=== PATIENT | female | born 1975 | race Caucasian/White ===

== ENCOUNTER 2017-06-15 17:23 | Inpatient (IN) | payer MEDICAID, SELFPAY ==
[2016-05-21 16:15] VITALS: BMI 41.6
[2017-06-15 17:46] VITALS: BMI 39.9; BMI 40.0
--- NOTE | 2017-06-15 18:00 | CT_ITS ---
STUDY: CT ABDOMEN AND PELVIS WITHOUT CONTRAST REASON FOR EXAM: Female, 42 years old. MRSA abscess of the abdomen and left upper inner thigh area. RADIATION DOSAGE (If Supplied By Facility): CTDIvol = ( 18.69 ) mGy, DLP = ( 1134.75 ) mGycm TECHNIQUE: Transaxial images were obtained from the dome of the diaphragm to the symphysis pubis without oral contrast, and without intravenous contrast. Sagittal and coronal images were reconstructed. Individualized dose optimization techniques were used for this CT. COMPARISON: None. FINDINGS: Minimal chronic change or atelectatic change at the left lung base. Right coronary stent artifact. Normal cardiac size. Normal liver. Normal gallbladder and extrahepatic biliary system. Normal spleen. Normal pancreas. Normal bilateral adrenal glands. Normal right kidney. Normal left kidney. Normal visualized stomach. Normal small intestine. Minimal diverticulosis of the colon without evidence of acute diverticulitis. The appendix is visualized and appears normal. Mild calcified plaque of the aorta. Normal inferior vena cava. Normal retroperitoneum. Normal urinary bladder. Normal gynecologic structures with no pelvic mass or free fluid of the pelvis. There is a skin ulceration and generalized thickening of the skin with stranding in the superficial subcutaneous layer of the patient's overhanging abdominal panniculus. There does not appear to be an underlying focal fluid collection or abscess. There is stranding in the fatty tissues of the left medial thigh included in the [id number] extending into the perineum without a focal fluid collection or visible abscess cavity. Shotty bilateral inguinal lymph nodes. Skin ulceration in the perineum or thigh not obvious. No underlying bone abnormality. CT/Abdomen/Pelvis without Cont IMPRESSION: Skin ulceration and generalized thickening of the skin with stranding in the superficial subcutaneous layers of the patient's overhanging abdominal panniculus without an underlying focal fluid collection or abscess. Stranding in the fatty tissues of the left medial thigh included in the [id number] extending into the fatty tissues of the perineum without a focal fluid collection or visible abscess cavity in the [id number]. Skin ulceration in the perineum or thigh not obvious. Shotty bilateral inguinal adenopathy. No additional acute abdominal or pelvic findings. Electronically Signed: Henrietta Steinberg MD at 19:28 EST , Service support ,
--- NOTE | 2017-06-15 18:25 | PCM.HP.BLA ---
Problem List (1) Cellulitis Status: Acute Qualifiers: Site of cellulitis: trunk Site of cellulitis of trunk: groin Qualified Code(s): L03.314 - Cellulitis of groin (2) MRSA (methicillin resistant Staphylococcus aureus) Status: Acute History and Physical Date of Admission: 06/15/17 This is a 42-year-old female that was seen in [facility] today with a large open wound on her abdomen MRSA positive. Patient also had left groin and vulvar cellulitis and abscess. Patient was advised for direct admission to the hospital for debridement, and IV - Vancomycin. Dr. pj Lezama was consulted by Dr. Ana Hayes for OR debridement on 06/16/2017. Medicine consult for multiple comorbidities, cellulitis, and MRSA positive. On admission patient denies any chest pain, shortness of breath, dizziness. Patient reports that her most recent temperature was 99.5?. Reports that over the last few days her highest temperature was 100.3?F. Patient denies any recent drug abuse. Reports that she last used opioids approximately 13 years ago. Patient also reports that her blood sugar is uncontrolled. Reports she has not taken her insulin. Reports that her fasting glucose level this morning on 06/15/2017 was 315. PMH: NSTEMI, Uncontrolled DM, h/o opioid abuse, h/o Cocaine abuse, Cellulitis, MRSA positive, Obesity Psx: Adenoidectomy OBHX: x 5 MEDS: see Med list ALL: NKDA Exam: Gen: white female in NAD Abd/ext: dressing covering wound, left groin abscess/cellulitis - was examined in office by Dr. Ana Hayes a/p: 42yo with MRSA positive, Left groin cellulitis and Abscesses, Abdominal wound with necrosis 1) admit to MED SURG 2) MED CONSULT CALLED, Plastic surgery Dr. Uriarte consulted 3) CT ABD/PELV 4) DIABETIC DIET- NPO after Midnight 5) IVF 75cc/hr when NPO 6) Insulin sliding scale 7) HOME MEDS written- Norvasc, lisinopril, metoprolol, Prilosec 8) OR tomorrow for wound debridement 9) IV vancomycin
[2017-06-15 18:58] VITALS: BP 136/79; PULSE 88; RESP 16; TEMP 36.9; O2SAT 93
[2017-06-15 19:31] LABS: Bedside Glucose 337 mg/dL (70-110)
[2017-06-15] MEDS: 0.9% Normal Saline 1,000 ML 75 ML IV (19:31)
--- NOTE | 2017-06-15 19:36 | PCM.CONS.GEN ---
Reason for Consult Date of Consultation: 06/15/17 Reason for Consultation: Nonhealing diabetic MRSA ulcer abscess right abdominal wall. REFERRING PHYSICIAN: Dr. Hayes. HEAD OF HUMAN RESOURCES: Dr. Uriarte. History of Present Illness: 42-year-old woman with a history of poorly controlled diabetes mellitus was seen today with a nonhealing MRSA diabetic ulcer abscess right lower abdominal wall. She also has an abscess in her left inguinal and perineal area as well. She states she first noticed the increasing redness and swelling and pain on Michelle. She went to an urgent care center where a localized I&D procedure was done and the patient was started on Bactrim DS. She was told that the I&D showed MRSA. Patient was seen earlier today at [facility] by Dr. Hayes. With the worsening symptomatology of the right lower abdominal wall MRSA abscess, she felt the patient needed more aggressive antibiotic therapy and surgical debridement, and the patient was admitted to the hospital and started on IV Vancomycin. A CT Abdomen and Pelvis was done which did not show obvious underlying abscess. There was no intra-abdominal process present. I was asked to evaluate this patient for surgical options for treatment. In addition to the MRSA abscess in the right lower abdominal wall, the patient also has a localized abscess in the left inguinal and perineal area as well. Past Medical History Past Medical History (Chronic Problems): Chronic Problems NSTEMI (non-ST elevated myocardial infarction) (Chronic) HTN (hypertension) (Chronic) Diabetes mellitus (Chronic) HLD (hyperlipidemia) (Chronic) Tobacco abuse (Chronic) Allergies No Known Allergies Allergy (Verified 08/26/15 15:15) Current Medications Amlodipine Besylate (Norvasc) 5 mg PO DAILY ANDRES Atorvastatin Calcium (Lipitor) 80 mg PO QHS ANDRES Fluoxetine HCl (Prozac) 20 mg PO DAILY ANDRES Glucagon () 1 mg IM .X1 PRN Vancomycin HCl 2,000 mg/ (Dextrose) 290 mls @ 250 mls/hr IV RX TO DOSE ONE Vancomycin HCl 1,500 mg/ (Sodium Chloride) 530 mls @ 250 mls/hr IV X1 ONE Insulin Aspart (Novolog Flexpen (Bkc)) 0 units SC ACHS ANDRES Lisinopril (Zestril) 10 mg PO DAILY ANDRES Metoprolol Tartrate (Lopressor (Beta Familia)) 50 mg PO BID ANDRES Morphine Sulfate (Morphine) 2 - 4 mg IV Q3H PRN Morphine Sulfate (Morphine) 2 - 4 mg IV Q3H PRN Nutritional Formula (Lactose Free) (Glucerna Shake) 120 ml PO TIDCM ANDRES PAST MEDICAL HISTORY Diabetes mellitus. CAD with SD. MRSA. Hypertension. Angina. Atrial fibrillation - on anti-coagulation. Hyperlipidemia. Migraines. Restless leg syndrome. COPD. JON. Arthritis. Depression. Anxiety. Smoker. Obesity (BMI 40). Home Medications: Ambulatory Orders Medication Instructions Recorded Fluoxetine [Prozac] 60 mg PO DAILY 05/20/16 Metoprolol Tartrate [Lopressor 50 mg PO BID #60 tablet 05/22/16 (beta familia)] Amlodipine [Norvasc] 5 mg PO DAILY 06/15/17 Aspirin E.C. [Ecotrin] 81 mg PO DAILY@0800 06/15/17 Atorvastatin Calcium [Lipitor] 80 mg PO QHS 06/15/17 Clopidogrel Bisulfate [Plavix] 75 mg PO DAILY 06/15/17 Insulin Detemir [Levemir FlexPen] 20 units SC QHS 06/15/17 Lisinopril [Zestril] 10 mg PO DAILY 06/15/17 Tiotropium [place] [Spiriva 18 MCG] 1 puff INHALATION DAILY PRN 06/15/17 Surgical History: adenoidectomy, - - placement of cardiac stent. Psychiatric History: Anxiety, Depression Lives: Alone Smoking Status: Current every day smoker Tobacco Use: Cigarettes Alcohol: Rare Drugs: None - *Family History Paternal History Items: Heart Disease Review of Systems Constitutional: Reports: Fever, Malaise, Fatigue. Denies: Weight Change Eyes: Denies: Cataracts, Pain HEENT: Denies: Nasal Congestion, Sore Throat Cardiovascular: Reports: Chest Pain Respiratory: Reports: - - patient is a smoker.. Denies: Cough, Shortness of Breath Gastrointestinal: Denies: Constipation, Diarrhea, Nausea, Vomiting Genitourinary: Denies: Frequency, Hematuria Musculoskeletal: Denies: Arm Pain, Back Pain, Hand Pain, Leg Pain, Muscle pain, Neck Pain Skin: Reports: Wounds - nonhealing MRSA diabetic ulcer abscess right abdominal wall. diabetic abscess left inguinal and perineal area. Neurological: Reports: Headaches. Denies: Numbness Psychiatric: Reports: Anxiety, Depression Endocrine: Reports: - - has diabetes mellitus.. Denies: Polydipsia, Polyuria Hematologic/ Lymphatic: Reports: Easy Bruising, Hx of blood clot Patient Problems: Active and Suspected Problems Necrotizing soft tissue infection (Acute) necrotizing MRSA abscess soft tissue infection right lower abdominal wall Type 2 diabetes mellitus with other skin ulcer (Acute) Abdominal wall abscess (Acute) MRSA (methicillin resistant Staphylococcus aureus) (Acute) Vulvar cellulitis (Acute) Pelvic wall abscess and ulcer (Acute) - Physical Exam General: Alert, Oriented x3 HEENT: PERRLA, EOMI Oral: Moist Mucosa Neck: Supple Lungs: Clear to auscultation Cardiovascular: Regular rate, Regular Rhythm Abdomen: Soft, Non-Distended, Obese, - - there is a nonhealing diabetic MRSA ulcer abscess right abdominal wall. Tenderness to palpation. Surrounding induration. Measures 12 cm. Some fluctuance. Had recent I&D procedure at urgent care center. Has large abdominal panniculus with associated panniculitis. Extremities: No clubbing, No cyanosis, Edema - mild edema in lower extremities. Skin: Ulcer/ Wound - right lower abdominal wall MRSA diabetic ulcer abscess. Tenderness to palpation. Surrounding induration. Measures 12 cm. Some fluctuance. Had recent I&D procedure at urgent care center. There is an area of redness and tenderness to palpation in the left inguinal area and perineal area. Measures 8 cm. Some fluctuance. Lymphatic: No Cervical, Supraclavicular, or Inguinal Adenopathy Neurological: Cranial nerves II-XII grossly intact Psych/Mental Status: Normal Affect, Appropriate Vital Signs Temp Pulse Resp BP Pulse Ox 98.5 F 88 16 136/79 H 93 06/15/17 18:58 06/15/17 18:58 06/15/17 18:58 06/15/17 18:58 06/15/17 18:58 Oxygen Delivery Method Room Air Weight: 218 lb 8 oz Body Mass Index (BMI) 39.9 Laboratory Tests Past 24 Hrs 06/15/17 19:10 WBC Pending RBC Pending Hgb Pending Hct Pending MCV Pending MCH Pending MCHC Pending RDW Pending RDW Differential Pending Plt Count Pending Neut % (Auto) Pending Absolute Neuts (auto) Pending Total Counted Pending POC Glucose 06/15/17 19:15 POC Glucose 337 H Diagnostic Data Abdomen/Pelvis CT 06/15/17 18:00 IMPRESSION: Skin ulceration and generalized thickening of the skin with stranding in the superficial subcutaneous layers of the patient's overhanging abdominal panniculus without an underlying focal fluid collection or abscess. Stranding in the fatty tissues of the left medial thigh included in the [id number] extending into the fatty tissues of the perineum without a focal fluid collection or visible abscess cavity in the [id number]. Skin ulceration in the perineum or thigh not obvious. Shotty bilateral inguinal adenopathy. No additional acute abdominal or pelvic findings. Electronically Signed: Henrietta Steinberg MD at 19:28 EST , Service support , Assessment/Plan Active and Suspected Problems Necrotizing soft tissue infection (Acute) necrotizing MRSA abscess soft tissue infection right lower abdominal wall Type 2 diabetes mellitus with other skin ulcer (Acute) Abdominal wall abscess (Acute) MRSA (methicillin resistant Staphylococcus aureus) (Acute) Vulvar cellulitis (Acute) Pelvic wall abscess and ulcer (Acute) 1. 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 2. Necrotizing MRSA diabetic abscess left inguinal and perineal area. 3. Abdominal wall panniculus with panniculitis. 4. Diabetes mellitus. 5. MRSA. 6. Smoker. 7. Obesity. Patient has a draining diabetic MRSA ulcer abscess. May have an underlying necrotizing process. Abscesses may be secondary to poor diabetic control as well as from secondary infection from insulin injections. Recommend operative intervention with surgical preparation right lower abdominal wall with excision skin, subcutaneous tissue, muscle and fascia for necrotizing MRSA diabetic abscess soft tissue infection and abdominal panniculectomy. Any fascial defects will be closed. Will leave the wound open initially and pack the wound. Once no evidence of bleeding seen, can apply the VAC. Post discharge, can followup at the Wound Center. If there is a plateau in the healing process, can proceed with delayed secondary wound closure. At the time of surgery, will send tissue to Pathology for analysis to rule out carcinoma and to Microbiology for culture. A positive culture may necessitate antibiotic modification. Right now there is MRSA and will place the patient on Vancomycin. With poorly controlled diabetics, it is not uncommon to have polymicrobial infections. Will also add Zosyn to broaden the coverage. Depending on what is found at the time of surgery, may need ID consultation to assist with antibiotic management. With MRSA in a poorly controlled diabetic, I anticipate the need for IV antibiotics after discharge. Will order a PICC line. Dr. Hayes from Gynecology will proceed at the same time with incision and drainage and excisional debridement necrotizing MRSA diabetic abscess left inguinal and perineal area. That wound will also be left open and packed. Hopefully can maintain a seal with the VAC in this area. If not, then can proceed with daily dressing changes with a Silver type dressing. A CT Abdomen and Pelvis was done which did not show obvious underlying abscess. There was no intra-abdominal process present. With her multiple medical co-morbidities, the Hospitalist Group was consulted to assist with medical management. With her history of poorly controlled diabetes mellitus, will check a Hgb A1c. For the infection, will check an ESR and CRP. Will also check a Urinalysis. Anticipate increased metabolic demands from the wounds and from the infection. Will check a Prealbumin. I anticipate it will be low and will start the patient on nutritional supplementation with protein to help the healing process. Patient was informed of the risks and complications of the procedure including alternatives to surgery. These were discussed with her personally. She voiced understanding and wishes to proceed. She understands the wounds will be left open initially and packed with wound care. Encouraged the patient to stop smoking as it may have deleterious effects on wound healing. Code Visit Inpatient E&M: 40454 Init Hosp L2 - ICD-10 - L02.211, E11.622, M79.89, A49.02, F17.200
--- NOTE | 2017-06-15 19:39 | CON.PCM_ITS ---
Reason for Consult Date of Consultation: 06/15/17 Reason for Consultation: Nonhealing diabetic MRSA ulcer abscess right abdominal wall. REFERRING PHYSICIAN: Dr. Hayes. ELECTRICAL INSTRUMENTATION TECHNICIAN: Dr. Uriarte. History of Present Illness: 42-year-old woman with a history of poorly controlled diabetes mellitus was seen today with a nonhealing MRSA diabetic ulcer abscess right lower abdominal wall. She also has an abscess in her left inguinal and perineal area as well. She states she first noticed the increasing redness and swelling and pain on Michelle. She went to an urgent care center where a localized I&D procedure was done and the patient was started on Bactrim DS. She was told that the I&D showed MRSA. Patient was seen earlier today at [facility] by Dr. Hayes. With the worsening symptomatology of the right lower abdominal wall MRSA abscess, she felt the patient needed more aggressive antibiotic therapy and surgical debridement, and the patient was admitted to the hospital and started on IV Vancomycin. A CT Abdomen and Pelvis was done which did not show obvious underlying abscess. There was no intra- abdominal process present. I was asked to evaluate this patient for surgical options for treatment. In addition to the MRSA abscess in the right lower abdominal wall, the patient also has a localized abscess in the left inguinal and perineal area as well. Past Medical History Past Medical History (Chronic Problems): Chronic Problems NSTEMI (non-ST elevated myocardial infarction) (Chronic) HTN (hypertension) (Chronic) Diabetes mellitus (Chronic) HLD (hyperlipidemia) (Chronic) Tobacco abuse (Chronic) Allergies No Known Allergies Allergy (Verified 08/26/15 15:15) Current Medications Amlodipine Besylate (Norvasc) 5 mg PO DAILY ANDRES Atorvastatin Calcium (Lipitor) 80 mg PO QHS ANDRES Fluoxetine HCl (Prozac) 20 mg PO DAILY ANDRES Glucagon () 1 mg IM .X1 PRN Vancomycin HCl 2,000 mg/ (Dextrose) 290 mls @ 250 mls/hr IV RX TO DOSE ONE Vancomycin HCl 1,500 mg/ (Sodium Chloride) 530 mls @ 250 mls/hr IV X1 ONE Insulin Aspart (Novolog Flexpen (Bkc)) 0 units SC ACHS ANDRES Lisinopril (Zestril) 10 mg PO DAILY ANDRES Metoprolol Tartrate (Lopressor (Beta Familia)) 50 mg PO BID ANDRES Morphine Sulfate (Morphine) 2 - 4 mg IV Q3H PRN Morphine Sulfate (Morphine) 2 - 4 mg IV Q3H PRN Nutritional Formula (Lactose Free) (Glucerna Shake) 120 ml PO TIDCM ANDRES PAST MEDICAL HISTORY Diabetes mellitus. CAD with HI. MRSA. Hypertension. Angina. Atrial fibrillation - on anti-coagulation. Hyperlipidemia. Migraines. Restless leg syndrome. COPD. JON. Arthritis. Depression. Anxiety. Smoker. Obesity (BMI 40). Home Medications: Ambulatory Orders Medication Instructions Recorded Fluoxetine [Prozac] 60 mg PO DAILY 05/20/16 Metoprolol Tartrate [Lopressor 50 mg PO BID #60 tablet 05/22/16 (beta familia)] Amlodipine [Norvasc] 5 mg PO DAILY 06/15/17 Aspirin E.C. [Ecotrin] 81 mg PO DAILY@0800 06/15/17 Atorvastatin Calcium [Lipitor] 80 mg PO QHS 06/15/17 Clopidogrel Bisulfate [Plavix] 75 mg PO DAILY 06/15/17 Insulin Detemir [Levemir FlexPen] 20 units SC QHS 06/15/17 Lisinopril [Zestril] 10 mg PO DAILY 06/15/17 Tiotropium [place] [Spiriva 18 MCG] 1 puff INHALATION DAILY PRN 06/15/17 Surgical History: adenoidectomy, - - placement of cardiac stent. Psychiatric History: Anxiety, Depression Lives: Alone Smoking Status: Current every day smoker Tobacco Use: Cigarettes Alcohol: Rare Drugs: None - *Family History Paternal History Items: Heart Disease Review of Systems Constitutional: Reports: Fever, Malaise, Fatigue. Denies: Weight Change Eyes: Denies: Cataracts, Pain HEENT: Denies: Nasal Congestion, Sore Throat Cardiovascular: Reports: Chest Pain Respiratory: Reports: - - patient is a smoker.. Denies: Cough, Shortness of Breath Gastrointestinal: Denies: Constipation, Diarrhea, Nausea, Vomiting Genitourinary: Denies: Frequency, Hematuria Musculoskeletal: Denies: Arm Pain, Back Pain, Hand Pain, Leg Pain, Muscle pain, Neck Pain Skin: Reports: Wounds - nonhealing MRSA diabetic ulcer abscess right abdominal wall. diabetic abscess left inguinal and perineal area. Neurological: Reports: Headaches. Denies: Numbness Psychiatric: Reports: Anxiety, Depression Endocrine: Reports: - - has diabetes mellitus.. Denies: Polydipsia, Polyuria Hematologic/ Lymphatic: Reports: Easy Bruising, Hx of blood clot Patient Problems: Active and Suspected Problems Necrotizing soft tissue infection (Acute) necrotizing MRSA abscess soft tissue infection right lower abdominal wall Type 2 diabetes mellitus with other skin ulcer (Acute) Abdominal wall abscess (Acute) MRSA (methicillin resistant Staphylococcus aureus) (Acute) Vulvar cellulitis (Acute) Pelvic wall abscess and ulcer (Acute) - Physical Exam General: Alert, Oriented x3 HEENT: PERRLA, EOMI Oral: Moist Mucosa Neck: Supple Lungs: Clear to auscultation Cardiovascular: Regular rate, Regular Rhythm Abdomen: Soft, Non-Distended, Obese, - - there is a nonhealing diabetic MRSA ulcer abscess right abdominal wall. Tenderness to palpation. Surrounding induration. Measures 12 cm. Some fluctuance. Had recent I&D procedure at urgent care center. Has large abdominal panniculus with associated panniculitis. Extremities: No clubbing, No cyanosis, Edema - mild edema in lower extremities. Skin: Ulcer/ Wound - right lower abdominal wall MRSA diabetic ulcer abscess. Tenderness to palpation. Surrounding induration. Measures 12 cm. Some fluctuance. Had recent I&D procedure at urgent care center. There is an area of redness and tenderness to palpation in the left inguinal area and perineal area. Measures 8 cm. Some fluctuance. Lymphatic: No Cervical, Supraclavicular, or Inguinal Adenopathy Neurological: Cranial nerves II-XII grossly intact Psych/Mental Status: Normal Affect, Appropriate Vital Signs Temp Pulse Resp BP Pulse Ox 98.5 F 88 16 136/79 H 93 06/15/17 18:58 06/15/17 18:58 06/15/17 18:58 06/15/17 18:58 06/15/17 18:58 Oxygen Delivery Method Room Air Weight: 218 lb 8 oz Body Mass Index (BMI) 39.9 Laboratory Tests Past 24 Hrs 06/15/17 19:10 WBC Pending RBC Pending Hgb Pending Hct Pending MCV Pending MCH Pending MCHC Pending RDW Pending RDW Differential Pending Plt Count Pending Neut % (Auto) Pending Absolute Neuts (auto) Pending Total Counted Pending POC Glucose 06/15/17 19:15 POC Glucose 337 H Diagnostic Data Abdomen/Pelvis CT 06/15/17 18:00 IMPRESSION: Skin ulceration and generalized thickening of the skin with stranding in the superficial subcutaneous layers of the patient's overhanging abdominal panniculus without an underlying focal fluid collection or abscess. Stranding in the fatty tissues of the left medial thigh included in the [id number] extending into the fatty tissues of the perineum without a focal fluid collection or visible abscess cavity in the [id number]. Skin ulceration in the perineum or thigh not obvious. Shotty bilateral inguinal adenopathy. No additional acute abdominal or pelvic findings. Electronically Signed: Henrietta Steinberg MD at 19:28 EST , Service support , Assessment/Plan Active and Suspected Problems Necrotizing soft tissue infection (Acute) necrotizing MRSA abscess soft tissue infection right lower abdominal wall Type 2 diabetes mellitus with other skin ulcer (Acute) Abdominal wall abscess (Acute) MRSA (methicillin resistant Staphylococcus aureus) (Acute) Vulvar cellulitis (Acute) Pelvic wall abscess and ulcer (Acute) 1. 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 2. Necrotizing MRSA diabetic abscess left inguinal and perineal area. 3. Abdominal wall panniculus with panniculitis. 4. Diabetes mellitus. 5. MRSA. 6. Smoker. 7. Obesity. Patient has a draining diabetic MRSA ulcer abscess. May have an underlying necrotizing process. Abscesses may be secondary to poor diabetic control as well as from secondary infection from insulin injections. Recommend operative intervention with surgical preparation right lower abdominal wall with excision skin, subcutaneous tissue, muscle and fascia for necrotizing MRSA diabetic abscess soft tissue infection and abdominal panniculectomy. Any fascial defects will be closed. Will leave the wound open initially and pack the wound. Once no evidence of bleeding seen, can apply the VAC. Post discharge, can followup at the Wound Center. If there is a plateau in the healing process, can proceed with delayed secondary wound closure. At the time of surgery, will send tissue to Pathology for analysis to rule out carcinoma and to Microbiology for culture. A positive culture may necessitate antibiotic modification. Right now there is MRSA and will place the patient on Vancomycin. With poorly controlled diabetics, it is not uncommon to have polymicrobial infections. Will also add Zosyn to broaden the coverage. Depending on what is found at the time of surgery, may need ID consultation to assist with antibiotic management. With MRSA in a poorly controlled diabetic, I anticipate the need for IV antibiotics after discharge. Will order a PICC line. Dr. Hayes from Gynecology will proceed at the same time with incision and drainage and excisional debridement necrotizing MRSA diabetic abscess left inguinal and perineal area. That wound will also be left open and packed. Hopefully can maintain a seal with the VAC in this area. If not, then can proceed with daily dressing changes with a Silver type dressing. A CT Abdomen and Pelvis was done which did not show obvious underlying abscess. There was no intra-abdominal process present. With her multiple medical co-morbidities, the Hospitalist Group was consulted to assist with medical management. With her history of poorly controlled diabetes mellitus, will check a Hgb A1c. For the infection, will check an ESR and CRP. Will also check a Urinalysis. Anticipate increased metabolic demands from the wounds and from the infection. Will check a Prealbumin. I anticipate it will be low and will start the patient on nutritional supplementation with protein to help the healing process. Patient was informed of the risks and complications of the procedure including alternatives to surgery. These were discussed with her personally. She voiced understanding and wishes to proceed. She understands the wounds will be left open initially and packed with wound care. Encouraged the patient to stop smoking as it may have deleterious effects on wound healing. Code Visit Inpatient E&M: 57772 Init Hosp L2 - ICD-10 - L02.211, E11.622, M79.89, A49.02 , F17.200
[2017-06-15 19:47] LABS: Absolute Lymphocyte Count 2.01 X10^3/ul (0.83-4.51); Absolute Neutrophil Count 7.5 X10^3/uL (2.0-7.7); Basophil# 0.02 X10^3/uL; Basophil% 0.2 % (0-1); Eosinophil# 0.13 X10^3/uL; Eosinophils% 1.2 % (0-5); Hematocrit 41.1 % (37-47); Hemoglobin 13.6 g/dl (12.0-15.0); Lymphocyte # 2.01 X10^3/ul (4.0); Lymphocyte % 19.1 % (19-41); Mean Corp Hgb Conc 33.1 g/gl (32-36); Mean Corpuscular Hgb 31.3 pg (27.0-32.0); Mean Corpuscular Volume 94.7 fL (81-99); Mean Platelet Vol. 11.2 fl (6.2-12.0); Monocyte% 7.6 % (0-10); Neutrophil # 7.54 X10^3/uL (2.7-7.7); Neutrophil % 71.6 % (47-70); Platelet Count 268 K/mm3 (150-450); RBC Distribution Width CV 12.6 % (11.6-14.6); RBC Distribution Width SD 43.8 fl (35.1-43.9); Red Blood Count 4.34 M/mm3 (4.2-5.4); White Blood Count 10.5 K/mm3 (4.4-11.0)
--- NOTE | 2017-06-15 20:15 | PCM.CONS.GEN ---
Problem List (1) Vulvar cellulitis Status: Acute (2) Pelvic wall abscess and ulcer Status: Acute (3) Angina pectoris Status: Resolved (4) NSTEMI (non-ST elevated myocardial infarction) Status: Chronic (5) HTN (hypertension) Status: Chronic (6) Diabetes mellitus Status: Chronic (7) HLD (hyperlipidemia) Status: Chronic (8) Tobacco abuse Status: Chronic (9) MRSA (methicillin resistant Staphylococcus aureus) Status: Acute Reason for Consult Date of Consultation: 06/15/17 Reason for Consultation: Lower pelvic wall ulcer with vulvar cellulitis and abscess History of Present Illness: The patient is a 42 year old F with multiple comorbidities as listed above was admitted from [facility] for ulcer on the lower pelvic wall with MRSA positive. As per the SLOTS MANAGER H&P, she has left groin and vulvar colitis and abscess. Patient was admitted for surgical debridement and IV antibiotic. Patient is on IV vancomycin. Dr. Uriarte has been consulted and she is scheduled for debridement on 06/16/2017. She noted perineal cellulitis/abscess first on the New Year's Michelle. She has low-grade fever, T-max 100.3 Fahrenheit in the last few days pelvic wall and perineal purulent drainage. She has history of coronary artery disease with non-STEMI in 05/2016 status post stent, diabetes mellitus type 2, obstructive sleep apnea, noncompliant with CPAP, COPD and hypertension. She is a smoker. [] Past Medical History Past Medical History (Chronic Problems): Chronic Problems NSTEMI (non-ST elevated myocardial infarction) (Chronic) HTN (hypertension) (Chronic) Diabetes mellitus (Chronic) HLD (hyperlipidemia) (Chronic) Tobacco abuse (Chronic) Allergies No Known Allergies Allergy (Verified 08/26/15 15:15) Home Medications: Ambulatory Orders Medication Instructions Recorded Fluoxetine [Prozac] 60 mg PO DAILY 05/20/16 Metoprolol Tartrate [Lopressor 50 mg PO BID #60 tablet 05/22/16 (beta steph)] Amlodipine [Norvasc] 5 mg PO DAILY 06/15/17 Aspirin E.C. [Ecotrin] 81 mg PO DAILY@0800 06/15/17 Atorvastatin Calcium [Lipitor] 80 mg PO QHS 06/15/17 Clopidogrel Bisulfate [Plavix] 75 mg PO DAILY 06/15/17 Insulin Detemir [Levemir FlexPen] 20 units SC QHS 06/15/17 Lisinopril [Zestril] 10 mg PO DAILY 06/15/17 Tiotropium [place] [Spiriva 18 MCG] 1 puff INHALATION DAILY PRN 06/15/17 Surgical History: no surgical history Smoking Status: Current every day smoker Tobacco Use: Cigarettes - *Family History Paternal History Items: Heart Disease Review of Systems Constitutional: Reports: Chills, Fever, Weakness HEENT: Denies: Head Aches, Sinus Congestion, Sinus Drainage Cardiovascular: Denies: Chest Pain, Palpitations Respiratory: Denies: Cough, Shortness of breath at rest, Sputum production Gastrointestinal: Denies: Abdominal Pain, Nausea, Vomiting Genitourinary: Denies: Dysuria Musculoskeletal: Denies: Joint Pain, Joint Tenderness Skin: Reports: Dryness, Rash, Skin Changes, Wounds Neurological: Denies: Numbness, Tingling, Focal weakness Psychiatric: Denies: Anxiety, Depression, Homicidal Ideations, Suicidal Ideations Hematologic/ Lymphatic: Denies: Easy Bruising, Easy Bleeding Patient Problems: Active and Suspected Problems MRSA (methicillin resistant Staphylococcus aureus) (Acute) Vulvar cellulitis (Acute) Pelvic wall abscess and ulcer (Acute) - Physical Exam General: Alert, Oriented x3, Cooperative, - - Mild fever HEENT: Atraumatic, PERRLA, EOMI, Normocephalic Oral: Moist Mucosa Neck: Supple, No JVD, Negative Carotid Bruits Lungs: Clear to auscultation, Normal air movement, No rhonchi, No wheeze, No rales Cardiovascular: Regular rate, Regular Rhythm, Normal S1, Normal S2, No murmurs Abdomen: Bowel Sounds Present, Soft, Non Tender, Non-Distended Extremities: No cyanosis, Capillary Refill Less than 3 Seconds, Edema Skin: Ulcer/ Wound - Also present over lower pelvic wall, floor covered with slough and purulent discharge. Pelvic and SLOTS MANAGER exam deferred to director of strategic communications Musculoskeletal: No Tenderness to Palpation of Joints or Extremities Neurological: Cranial nerves II-XII grossly intact Psych/Mental Status: Normal Affect, Appropriate Vital Signs Temp Pulse Resp BP Pulse Ox 98.5 F 88 16 136/79 H 93 06/15/17 18:58 06/15/17 18:58 06/15/17 18:58 06/15/17 18:58 06/15/17 18:58 Oxygen Delivery Method Room Air Weight: 218 lb 8 oz Body Mass Index (BMI) 39.9 Laboratory Tests Past 24 Hrs 06/15/17 19:10 WBC Pending RBC Pending Hgb Pending Hct Pending MCV Pending MCH Pending MCHC Pending RDW Pending RDW Differential Pending Plt Count Pending Neut % (Auto) Pending Absolute Neuts (auto) Pending Total Counted Pending POC Glucose 06/15/17 19:15 POC Glucose 337 H Assessment/Plan Active and Suspected Problems MRSA (methicillin resistant Staphylococcus aureus) (Acute) Vulvar cellulitis (Acute) Pelvic wall abscess and ulcer (Acute) The patient is a 42 year old F with multiple comorbidities as listed above was admitted from [facility] for ulcer on the lower pelvic wall with MRSA positive. As per the SLOTS MANAGER H&P, she has left groin and vulvar colitis and abscess. Patient was admitted for surgical debridement and IV antibiotic. Patient is on IV vancomycin. Dr. Uriarte has been consulted and she is scheduled for debridement on 06/16/2017. She noted perineal cellulitis/abscess first on the New 's Michelle. She has low-grade fever, T-max 100.3 Fahrenheit in the last few days pelvic wall and perineal purulent drainage. She has history of coronary artery disease with non-STEMI in 05/2016 status post stent, diabetes mellitus type 2, obstructive sleep apnea, noncompliant with CPAP, COPD and hypertension. She is a smoker. 1. Pelvic wall ulcer with vulvar cellulitis and abscess with MRSA positive: [facility]. On IV vancomycin. Pain control. Wound care consult nurse. Dr. Uriarte is being consulted and is scheduled for surgery on 06/16/2017. CBC, PT/INR, CMP and prealbumin ordered. ESR ordered. 2. Diabetes mellitus type 2: Previous A1c 10.2% on 05/2016. Accu-Chek shows glucose 337. On Accu-Chek before meals and at bedtime car with NovoLog sliding scale. Levemir 20 units subcu at bedtime daily. Follow A1c. 3. Other comorbidities include coronary artery disease status post stent, hypertension, COPD, obstructive sleep apnea, noncompliant to CPAP: Stable. Home medication reconciliation done. Continue aspirin told Plavix tomorrow am and resume after surgery DVT prophylaxis: On heparin 5000 units subcutaneous twice daily. Bilateral SCDs. Hold morning dose before surgery. Code Visit Office Visits / Consults: [id number] IP Consult L2
[2017-06-15 20:26] LABS: POSITIVE COUNT NO; POSITIVE DIFFERENTIAL NO; POSITIVE MORPHOLOGY NO
--- NOTE | 2017-06-15 20:29 | CON.PCM_ITS ---
Problem List (1) Vulvar cellulitis Status: Acute (2) Pelvic wall abscess and ulcer Status: Acute (3) Angina pectoris Status: Resolved (4) NSTEMI (non-ST elevated myocardial infarction) Status: Chronic (5) HTN (hypertension) Status: Chronic (6) Diabetes mellitus Status: Chronic (7) HLD (hyperlipidemia) Status: Chronic (8) Tobacco abuse Status: Chronic (9) MRSA (methicillin resistant Staphylococcus aureus) Status: Acute Reason for Consult Date of Consultation: 06/15/17 Reason for Consultation: Lower pelvic wall ulcer with vulvar cellulitis and abscess History of Present Illness: The patient is a 42 year old F with multiple comorbidities as listed above was admitted from [facility] for ulcer on the lower pelvic wall with MRSA positive. As per the DEVELOPMENT TECHNOLOGIST H&P, she has left groin and vulvar colitis and abscess. Patient was admitted for surgical debridement and IV antibiotic. Patient is on IV vancomycin. Dr. Uriarte has been consulted and she is scheduled for debridement on 06/16/2017. She noted perineal cellulitis/abscess first on the New Year's Michelle. She has low- grade fever, T-max 100.3 Fahrenheit in the last few days pelvic wall and perineal purulent drainage. She has history of coronary artery disease with non-STEMI in 05/2016 status post stent, diabetes mellitus type 2, obstructive sleep apnea, noncompliant with CPAP, COPD and hypertension. She is a smoker. [] Past Medical History Past Medical History (Chronic Problems): Chronic Problems NSTEMI (non-ST elevated myocardial infarction) (Chronic) HTN (hypertension) (Chronic) Diabetes mellitus (Chronic) HLD (hyperlipidemia) (Chronic) Tobacco abuse (Chronic) Allergies No Known Allergies Allergy (Verified 08/26/15 15:15) Home Medications: Ambulatory Orders Medication Instructions Recorded Fluoxetine [Prozac] 60 mg PO DAILY 05/20/16 Metoprolol Tartrate [Lopressor 50 mg PO BID #60 tablet 05/22/16 (beta steph)] Amlodipine [Norvasc] 5 mg PO DAILY 06/15/17 Aspirin E.C. [Ecotrin] 81 mg PO DAILY@0800 06/15/17 Atorvastatin Calcium [Lipitor] 80 mg PO QHS 06/15/17 Clopidogrel Bisulfate [Plavix] 75 mg PO DAILY 06/15/17 Insulin Detemir [Levemir FlexPen] 20 units SC QHS 06/15/17 Lisinopril [Zestril] 10 mg PO DAILY 06/15/17 Tiotropium [place] [Spiriva 18 MCG] 1 puff INHALATION DAILY PRN 06/15/17 Surgical History: no surgical history Smoking Status: Current every day smoker Tobacco Use: Cigarettes - *Family History Paternal History Items: Heart Disease Review of Systems Constitutional: Reports: Chills, Fever, Weakness HEENT: Denies: Head Aches, Sinus Congestion, Sinus Drainage Cardiovascular: Denies: Chest Pain, Palpitations Respiratory: Denies: Cough, Shortness of breath at rest, Sputum production Gastrointestinal: Denies: Abdominal Pain, Nausea, Vomiting Genitourinary: Denies: Dysuria Musculoskeletal: Denies: Joint Pain, Joint Tenderness Skin: Reports: Dryness, Rash, Skin Changes, Wounds Neurological: Denies: Numbness, Tingling, Focal weakness Psychiatric: Denies: Anxiety, Depression, Homicidal Ideations, Suicidal Ideations Hematologic/ Lymphatic: Denies: Easy Bruising, Easy Bleeding Patient Problems: Active and Suspected Problems MRSA (methicillin resistant Staphylococcus aureus) (Acute) Vulvar cellulitis (Acute) Pelvic wall abscess and ulcer (Acute) - Physical Exam General: Alert, Oriented x3, Cooperative, - - Mild fever HEENT: Atraumatic, PERRLA, EOMI, Normocephalic Oral: Moist Mucosa Neck: Supple, No JVD, Negative Carotid Bruits Lungs: Clear to auscultation, Normal air movement, No rhonchi, No wheeze, No rales Cardiovascular: Regular rate, Regular Rhythm, Normal S1, Normal S2, No murmurs Abdomen: Bowel Sounds Present, Soft, Non Tender, Non-Distended Extremities: No cyanosis, Capillary Refill Less than 3 Seconds, Edema Skin: Ulcer/ Wound - Also present over lower pelvic wall, floor covered with slough and purulent discharge. Pelvic and DEVELOPMENT TECHNOLOGIST exam deferred to braiding machine tender Musculoskeletal: No Tenderness to Palpation of Joints or Extremities Neurological: Cranial nerves II-XII grossly intact Psych/Mental Status: Normal Affect, Appropriate Vital Signs Temp Pulse Resp BP Pulse Ox 98.5 F 88 16 136/79 H 93 06/15/17 18:58 06/15/17 18:58 06/15/17 18:58 06/15/17 18:58 06/15/17 18:58 Oxygen Delivery Method Room Air Weight: 218 lb 8 oz Body Mass Index (BMI) 39.9 Laboratory Tests Past 24 Hrs 06/15/17 19:10 WBC Pending RBC Pending Hgb Pending Hct Pending MCV Pending MCH Pending MCHC Pending RDW Pending RDW Differential Pending Plt Count Pending Neut % (Auto) Pending Absolute Neuts (auto) Pending Total Counted Pending POC Glucose 06/15/17 19:15 POC Glucose 337 H Assessment/Plan Active and Suspected Problems MRSA (methicillin resistant Staphylococcus aureus) (Acute) Vulvar cellulitis (Acute) Pelvic wall abscess and ulcer (Acute) The patient is a 42 year old F with multiple comorbidities as listed above was admitted from [facility] for ulcer on the lower pelvic wall with MRSA positive. As per the DEVELOPMENT TECHNOLOGIST H&P, she has left groin and vulvar colitis and abscess. Patient was admitted for surgical debridement and IV antibiotic. Patient is on IV vancomycin. Dr. Uriarte has been consulted and she is scheduled for debridement on 06/16/2017. She noted perineal cellulitis/abscess first on the New 's Michelle. She has low- grade fever, T-max 100.3 Fahrenheit in the last few days pelvic wall and perineal purulent drainage. She has history of coronary artery disease with non-STEMI in 05/2016 status post stent, diabetes mellitus type 2, obstructive sleep apnea, noncompliant with CPAP, COPD and hypertension. She is a smoker. 1. Pelvic wall ulcer with vulvar cellulitis and abscess with MRSA positive: [facility]. On IV vancomycin. Pain control. Wound care consult nurse. Dr. Uriarte is being consulted and is scheduled for surgery on 06/16/2017. CBC, PT/INR, CMP and prealbumin ordered. ESR ordered. 2. Diabetes mellitus type 2: Previous A1c 10.2% on 05/2016. Accu-Chek shows glucose 337. On Accu-Chek before meals and at bedtime car with NovoLog sliding scale. Levemir 20 units subcu at bedtime daily. Follow A1c. 3. Other comorbidities include coronary artery disease status post stent, hypertension, COPD, obstructive sleep apnea, noncompliant to CPAP: Stable. Home medication reconciliation done. Continue aspirin told Plavix tomorrow am and resume after surgery DVT prophylaxis: On heparin 5000 units subcutaneous twice daily. Bilateral SCDs. Hold morning dose before surgery. Code Visit Office Visits / Consults: [id number] IP Consult L2
--- NOTE | 2017-06-15 20:30 | NURSING ---
Patient refused for wound to be assessed by Dr. Orosco. Also refused care by this nurse, with education and encouragement patient allowed for abd wound to be assessed and part of physical assessment to be done. Patient yelling/cussing at staff. Did not initially allow for lab draw, this nurse to bedside with education and patient reluctantly allowed for draw.
[2017-06-15 20:33] LABS: International Normalized Ratio 1.2; Prothrombin Time (Protime)PT. 14.5 SECONDS (11.7-14.9)
[2017-06-15 20:46] LABS: ALB/GLOB Ratio 0.8 RATIO (0.9-2.4); AST(SGOT) 13 U/L (15-37); Alanine Aminotransfer ALT/SGPT 21 U/L (12-78); Albumin, Serum 2.8 g/dL (3.4-5.0); Alkaline Phosphatase 150 U/L (45-117); Anion Gap 12 (5-15); BUN 12 mg/dL (7-18); BUN/Creat Ratio 18.1 RATIO (10-20); Calcium,Total 8.9 mg/dL (8.5-10.1); Chloride 101 mmol/L (98-107); Creatinine, Serum 0.66 mg/dL (0.55-1.02); EST Glomerular Filtration Rate 104 mL/min (>60); Est Glom Filt Rate - Afr Amer 126 mL/min (>60); Estimated Creatinine Clearance 87.82 ml/min; Globulin 3.7 g/dL (2.2-4.2); Glucose 332 mg/dL (70-110); Potassium 4.2 mmol/L (3.5-5.1); Protein, Total 6.5 g/dL (6.4-8.2); Sodium Level 136 mmol/L (136-145)
[2017-06-15 20:56] LABS: Hemoglobin A1c 12.9 % (4.2-6.3)
--- NOTE | 2017-06-15 21:15 | NURSING ---
Patient 10 year old daughter here to visit. Has stuffy/running nose and cough. Asked to leave, patient/family refused. This nurse offered mask to child, refused by patient as well. Advised that hospital policy is nobody under 14 during flu season, patient very angry with this nurse.
[2017-06-15 22:32] LABS: Probe Check PASS; Staph aureus DNA By PCR POSITIVE (Negative)
[2017-06-15 22:33] LABS: M R Staph aureus DNA By PCR POSITIVE (Negative)
[2017-06-15 22:41] VITALS: PULSE 80
[2017-06-15] MEDS: Metoprolol Tartrate 50 MG Tablet PO (22:41)
[2017-06-15] MEDS: Piperacil/Tazobactam 3.375 GM/50 ML ML IV (22:43)
[2017-06-15 22:50] VITALS: BP 130/78; PULSE 92; RESP 16; TEMP 37.3; O2SAT 92
[2017-06-15] MEDS: 0.9% NaCl Peripheral Flush Adult/Peds IV (23:05)
[2017-06-15 23:11] LABS: Bedside Glucose 332 mg/dL (70-110)
[2017-06-15 23:12] LABS: Mucous, Urine 0 SEEN /hpf (<or=2+)
[2017-06-15 23:20] LABS: Color, Urine Yellow (Yellow); Glucose, Dipstick 1000 mg/dl (Normal); Ketone-Dipstick 5 mg/dl (Negative); Leukocyte Esterase-Dipstick 500 /ul (Negative); Nitrite-Dipstick Negative (Negative); Occult Blood-Urine 10 /ul (Negative); Protein-Dipstick 30 mg/dl (Negative); Specific Gravity, Urine 1.015 (1.002-1.030); Urine Bilirubin Dipstick Negative (Negative); Urine Clarity Sl. Cloudy (Clear); Urine Urobilinogen Normal (Normal)
[2017-06-15 23:42] LABS: Bacteria RARE /hpf (None Seen); Red Blood Cells-Urine 0-5 SEEN /hpf (0-5); Squamous Epithelial Cells - UA 5-10 SEEN /hpf (5-10); White Blood Cells 10-25 SEEN /hpf (0-5)
[2017-06-16] VITALS (13 sets, daily range): BP systolic 111–132; BP diastolic 66–93; PULSE 72–78; RESP 16–18; TEMP 35.8–36.7; O2SAT 92–97; BMI 39.9
[2017-06-16] MEDS: Nystatin Powder 15gm Bottle 1 APPLIC TOPICAL (00:31)
[2017-06-16] MEDS: 0.9% NaCl Peripheral Flush Adult/Peds IV ×2 (03:26→22:15)
--- NOTE | 2017-06-16 05:00 | EKG12_ITS ---
Test Reason : AM EKG Blood Pressure : / mmHG Vent. Rate : 079 BPM Atrial Rate : 079 BPM P-R Int : 156 ms QRS Dur : 086 ms QT Int : 400 ms P-R-T Axes : 042 044 037 degrees QTc Int : 458 ms Normal sinus rhythm Normal ECG Confirmed by WAYNE STEELE, ANGEL ([id number]), copy editor GERALDINE MULLINS ([id number]) on 06/29/2017 11:24:43 AM Referred By: JOHANNY Confirmed By:ANGEL BLACK MD
[2017-06-16] MEDS: Piperacil/Tazobactam 3.375 GM/50 ML ML IV ×2 (06:14→18:31)
[2017-06-16 06:35] LABS: Bedside Glucose 337 mg/dL (70-110)
--- NOTE | 2017-06-16 07:30 | ABS_PTH ---
PATIENT: RACHANA DAVIS LOC: MS2 U#:[id number] AGE/SX: 42/F ROOM: [facility] [place] RE06/15/[address]: Dr. Rodrigo Flor MD : [id number] BED: 1 DIS: 06/20/2017 SPEC #: [id number] RECD: 06/17/17 09:51 STATUS: MAURY HADLEY #: [id number] TESSY: 06/16/17 07:[address]: Damien Batres DEPT: SURGICAL PATHOLOGY RECD BY: Thien Landis ENTERED: 06/17/17 10:11 SP TYPE: Abscess OTHR DR: MD Dr. Brian Burkett MD Dr. Liza D Talampas, MD Dr. Mark Tereletsky, DO Dr. Robert Leininger, MD Tissues: A - Abdomen, NOS B - Inguinal region, NOS Procedures: Special Stain Group I Surgery Specimen Level IV AFB Stain (control) GMS Stain (control) HEADER OPERATION: Excision vulvar abscess; surgical preparation right lower abdominal wall and left groin PRE-OP DIAGNOSIS: Vulvar abscess; nonhealing abdominal wall, abscess left inguinal area TISSUE SUBMITTED: A ? Right lower abdominal wall abscess, B ? Left inguinal/perineal abscess MICROSCOPIC DIAGNOSIS A. Skin and soft tissue, right lower abdomen, excision: Ulceration with associated acute and chronic inflammation and abscess formation. Negative for acid-fast bacilli and fungal organisms. B. Skin and soft tissue of left inguinal region, excision: Ulceration with associated acute and chronic inflammation and abscess formation. Negative for acid-fast bacilli and fungal organisms. AM:treva 06/20/17 MICROSCOPIC DESCRIPTION Slides are reviewed. A & B. AFB and GMS stains with matched controls were used in the evaluation of this case. GROSS DESCRIPTION A - Received in fixative is one container labeled with the patient's name and designated right lower abdominal wall abscess. The specimen consists of a piece of skin with underlying adipose tissue measuring 15 x 13 cm and up to 5.5 cm in thickness. The skin surface shows focal area of ulceration. No mass lesion is identified. Mineralogy Professor sections are submitted in three cassettes. B - Received in fixative is one container labeled with the patient's name and designated left inguinal perineal abscess. The specimen consists of four variable size pieces of skin with underlying tissue. The largest piece measures 10 x 8 cm and up to 3.5 cm in thickness. Three smaller pieces measure in aggregate 7 x 6 x 2 cm. A focal area of ulceration is noted. No mass lesion is identified. Mineralogy Professor sections are submitted in two cassettes. / ANGÉLICA:treva 06/17/17 TC:2 CPT: 81933 x2, 10134 x4
[2017-06-16 07:36] LABS: Anion Gap 9 (5-15); BUN 13 mg/dL (7-18); BUN/Creat Ratio 20.4 RATIO (10-20); Calcium,Total 8.3 mg/dL (8.5-10.1); Chloride 101 mmol/L (98-107); Creatinine, Serum 0.64 mg/dL (0.55-1.02); EST Glomerular Filtration Rate 109 mL/min (>60); Est Glom Filt Rate - Afr Amer 131 mL/min (>60); Estimated Creatinine Clearance 90.57 ml/min; Glucose 307 mg/dL (70-110); Potassium 3.5 mmol/L (3.5-5.1); Sodium Level 133 mmol/L (136-145)
--- NOTE | 2017-06-16 07:45 | NURSING ---
Addendum entered by Clarisse Jimenez 06/17/17 01:41: Time for this note was 1945 on 06/16/16 incorrectly charted as 0745 06/16/16. Original Note: Patient refused option to have 2nd IV access for antibiotic therapy. Call to pharmacy to edit antibiotic times
[2017-06-16 07:59] LABS: Erythrocyte Sedimentation Rate 76 mm/hr (0-20)
[2017-06-16 08:01] LABS: Hematocrit 38.1 % (37-47); Hemoglobin 12.7 g/dl (12.0-15.0); Mean Corp Hgb Conc 33.3 g/gl (32-36); Mean Corpuscular Hgb 31.8 pg (27.0-32.0); Mean Corpuscular Volume 95.3 fL (81-99); Platelet Count 239 K/mm3 (150-450); RBC Distribution Width CV 12.8 % (11.6-14.6); White Blood Count 8.7 K/mm3 (4.4-11.0)
[2017-06-16 08:02] LABS: Scan Indicated on CBC? Y/N NO
--- NOTE | 2017-06-16 08:31 | PCM.RX.CS ---
Subjective/Objective Date: 06/16/17 Time: 08:31 Antibiotic: Piperacillin/Tazobactam, Vancomycin Type of Consult: New start Indications for Therapy: Skin/Soft Tissue Labs: Sodium 133 mmol/L (136-145) L 06/16/17 07:00 Potassium 3.5 mmol/L (3.5-5.1) 06/16/17 07:00 Chloride 101 mmol/L (98-107) 06/16/17 07:00 Carbon Dioxide 23.0 mmol/L (21.0-32.0) 06/16/17 07:00 Anion Gap 9 (5-15) 06/16/17 07:00 BUN 13 mg/dL (7-18) 06/16/17 07:00 Creatinine 0.64 mg/dL (0.55-1.02) 06/16/17 07:00 Est GFR (MDRD) Af Amer 131 mL/min (>60) 06/16/17 07:00 Est GFR (MDRD) Non-Af 109 mL/min (>60) 06/16/17 07:00 BUN/Creatinine Ratio 20.4 RATIO (10-20) H 06/16/17 07:00 Glucose 307 mg/dL (70-110) H 06/16/17 07:00 Estimated Creatinine Clearance: 90-100 mL/min Pharmacy Plan for Drug Dosing: Goal vancomycin trough 10-15 mcg/mL. Patient initially given vancomycin 1500mg, recommend to continue vancomycin 1000mg IV q8h for est trough 13 mcg/mL. Check prior to 5th dose. Pharmacy Service will continue to monitor and adjust dosing as required. Pharmacy to order these labs: Trough - Vancomycin Labs to be done on (date): 06/18/17 Labs to be done (time): 12:00
--- NOTE | 2017-06-16 08:58 | PCM.PN.HOSP ---
Patient Problems: Active and Suspected Problems Necrotizing soft tissue infection (Acute) necrotizing MRSA abscess soft tissue infection right lower abdominal wall Type 2 diabetes mellitus with other skin ulcer (Acute) Abdominal wall abscess (Acute) MRSA (methicillin resistant Staphylococcus aureus) (Acute) Vulvar cellulitis (Acute) Pelvic wall abscess and ulcer (Acute) Subjective: Still with abdominal pain. Vitals/I&O's: Vital Signs Temp Pulse Resp BP Pulse Ox 36.4 C L 78 16 125/78 H 95 06/16/17 03:20 06/16/17 03:20 06/16/17 03:20 06/16/17 03:20 06/16/17 03:20 Oxygen Delivery Method Room Air Weight: 99.11 kg Body Mass Index (BMI) 39.9 Intake and Output for Last 24 Hours 06/14/17 06/15/17 06/16/17 23:59 23:59 23:59 Intake Total 2456 / 2456 1486 / 1486 Output Total 600 / 600 800 / 800 Balance 1856 / 1856 686 / 686 General: - - Flat affect. Afebrile. HEENT: Atraumatic, Normocephalic Neck: No Nodes, Thyroid Normal Size and Texture Lungs: Clear to auscultation, Normal air movement, No rhonchi, No wheeze Cardiovascular: Regular rate, Regular Rhythm, Normal S1, Normal S2, No murmurs Abdomen: Bowel Sounds Present, Soft, - - Declined visualization of the abdominal wound. Psych/Mental Status: Flat Affect Laboratory Results 06/15/17 19:10: WBC 10.5, RBC 4.34, Hgb 13.6, Hct 41.1, MCV 94.7, MCH 31.3, MCHC 33.1, RDW 12.6, RDW Differential 43.8, Plt Count 268, MPV 11.2, Immature Gran % (Auto) 0.300, Neut % (Auto) 71.6 H, Lymph % (Auto) 19.1, [place] % (Auto) 7.6, Eos % (Auto) 1.2, Baso % (Auto) 0.2, Absolute Neuts (auto) 7.5, Absolute Lymphs (auto) 2.01, Total Counted Not Reportable 06/15/17 19:10: PT 14.5, INR 1.2 06/15/17 19:10: Sodium 136, Potassium 4.2, Chloride 101, Carbon Dioxide 23.0, Anion Gap 12, BUN 12, Creatinine 0.66, Estim Creat Clear Calc 87.82, Est GFR (MDRD) Af Amer 126, Est GFR (MDRD) Non-Af 104, BUN/Creatinine Ratio 18.1, Glucose 332 H, Calcium 8.9, Total Bilirubin 0.30, AST 13 L, ALT 21, Alkaline Phosphatase 150 H, Total Protein 6.5, Albumin 2.8 L, Globulin 3.7, Albumin/Globulin Ratio 0.8 L, Prealbumin 12.0 L 06/15/17 19:10: Hemoglobin A1c 12.9 H 06/15/17 19:15: POC Glucose 337 H 06/15/17 22:39: POC Glucose 332 H 06/15/17 23:00: Urine Color Yellow, Urine Clarity Sl. Cloudy, Urine pH 6.0, Ur Specific [place] 1.015, Urine Protein 30 H, Urine Glucose (UA) 1000 H, Urine Ketones 5 H, Urine Occult Blood 10 H, Urine Nitrite Negative, Urine Bilirubin Negative, Urine Urobilinogen Normal, Ur Leukocyte Esterase 500 H, Urine RBC 0-5 SEEN, Urine WBC 10-25 SEEN, Ur Squamous Epith Cells 5-10 SEEN, Urine Bacteria RARE, Urine Mucus 0 SEEN 06/15/17 : S.aureus Protein A PCR POSITIVE H, MRSA (PCR) POSITIVE H 06/16/17 06:16: POC Glucose 337 H 06/16/17 07:00: WBC 8.7, RBC 4.00 L, Hgb 12.7, Hct 38.1, MCV 95.3, MCH 31.8, MCHC 33.3, RDW 12.8, RDW Differential 45.0 H, Plt Count 239, MPV 11.0, ESR 76 H 06/16/17 07:00: Sodium 133 L, Potassium 3.5, Chloride 101, Carbon Dioxide 23.0, Anion Gap 9, BUN 13, Creatinine 0.64, Estim Creat Clear Calc 90.57, Est GFR (MDRD) Af Amer 131, Est GFR (MDRD) Non-Af 109, BUN/Creatinine Ratio 20.4 H, Glucose 307 H, Calcium 8.3 L, C-React Prot Ext Range 134.00 H Current Medications Amlodipine Besylate (Norvasc) 5 mg PO DAILY [facility] Aspirin (Ecotrin) 81 mg PO DAILY@0800 [facility] Atorvastatin Calcium (Lipitor) 80 mg PO QHS [facility] Last Admin: 06/15/17 20:19 Dose: Not Given Dextrose (D50w Syringe) 0 gm IV X1 PRN; Protocol PRN Reason: Hypoglycemia Fluoxetine HCl (Prozac) 20 mg PO DAILY [facility] Glucagon () 1 mg IM .X1 PRN PRN Reason: Hypoglycemia Sodium Chloride () 1,000 mls @ 75 mls/hr IV .[id number] [facility] Last Admin: 06/15/17 19:31 Dose: 75 mls/hr Piperacillin Sod/Tazobactam Sod (Zosyn) 3.375 gm in 50 mls @ 12.5 mls/hr IV Q8 [facility] Last Admin: 06/16/17 06:14 Dose: 12.5 mls/hr Vancomycin HCl (Vancomycin) 1,000 mg in 200 mls @ 200 mls/hr IV Q8H [facility] Insulin Aspart (Novolog Flexpen (Bkc)) 0 units SC ACHS [facility] PRN Reason: Protocol Last Admin: 06/16/17 06:18 Dose: 8 units Insulin Detemir (Levemir (Bkc)) 20 units SC QHS [facility] Last Admin: 06/15/17 22:41 Dose: 20 units Ipratropium Saunemin (Atrovent) 0.5 mg INHALATION Q6HWA.RT [facility] Last Admin: 06/16/17 07:15 Dose: Not Given Lisinopril (Zestril) 10 mg PO DAILY [facility] Metoprolol Tartrate (Lopressor (Beta Familia)) 50 mg PO BID [facility] Last Admin: 06/15/17 22:41 Dose: 50 mg Morphine Sulfate (Morphine) 2 - 4 mg IV Q3H PRN PRN PRN Reason: SEVERE PAIN (6-10/10) Last Admin: 06/16/17 03:26 Dose: 4 mg Morphine Sulfate (Morphine) 2 - 4 mg IV Q3H PRN PRN PRN Reason: SEVERE PAIN (6-10/10) Nicotine (Nicoderm Cq (Pbkc)) 21 mg TRANSDERM. DAILY [facility] Last Admin: 06/16/17 00:31 Dose: 21 mg Nutritional Formula (Lactose Free) (Glucerna Shake) 120 ml PO TIDCM [facility] Nystatin (Mycostatin Powder) 1 applic TOPICAL TID [facility] PRN Reason: Protocol Last Admin: 06/16/17 00:31 Dose: 1 applicatio Sodium Chloride () 5 - 30 ml IV UD PRN PRN Reason: SALINE FLUSH Last Admin: 06/16/17 03:26 Dose: 10 ml Assessment/Plan Active and Suspected Problems Necrotizing soft tissue infection (Acute) necrotizing MRSA abscess soft tissue infection right lower abdominal wall Type 2 diabetes mellitus with other skin ulcer (Acute) Abdominal wall abscess (Acute) MRSA (methicillin resistant Staphylococcus aureus) (Acute) Vulvar cellulitis (Acute) Pelvic wall abscess and ulcer (Acute) 1. Diabetes mellitus type 2, uncontrolled On her home dose of Levemir. It appears patient has not any prandial insulin at home. She is on sliding scale here but I will add scheduled log once patient is taking diet. Patient's hemoglobin A1c is 12.9. Question if patient is actually been taking insulin as she is more she is very poorly controlled. Reluctant to start going up on her insulin regimen as of yet. Particularly if the patient is noncompliant then she may become hypoglycemic for her to aggressive. 2. Abdominal wall abscess: On vancomycin and Zosyn. Gynecology following, Dr. Uriarte on consult as well as Dr. Ng. 3. DVT prophylaxis will defer to the primary service. Code Visit Inpatient E&M: 51959 Subs Hosp L2
--- NOTE | 2017-06-16 09:05 | NURSING ---
Was asked to see patient for wound to the right lower abdomen and the left groin/perineal area. in to talk with patient and try yo assess the wounds. pt is refusing for this nurse to assess wounds at this time. states she is going to surgery today and does not want the packing removed because it hurts. Discussed the possibility of a wound VAC post operatively. Pt states that Dr Uriarte had discussed this yesterday with her. Pt states she is hoping to not have a wound VAC especially to the perineal wound. will follow up with patient post op since patient is refusing for this nurse to assess at this time.
--- NOTE | 2017-06-16 09:18 | PN_ITS ---
Patient Problems: Active and Suspected Problems Necrotizing soft tissue infection (Acute) necrotizing MRSA abscess soft tissue infection right lower abdominal wall Type 2 diabetes mellitus with other skin ulcer (Acute) Abdominal wall abscess (Acute) MRSA (methicillin resistant Staphylococcus aureus) (Acute) Vulvar cellulitis (Acute) Pelvic wall abscess and ulcer (Acute) Subjective: Still with abdominal pain. Vitals/I&O's: Vital Signs Temp Pulse Resp BP Pulse Ox 36.4 C L 78 16 125/78 H 95 06/16/17 03:20 06/16/17 03:20 06/16/17 03:20 06/16/17 03:20 06/16/17 03:20 Oxygen Delivery Method Room Air Weight: 99.11 kg Body Mass Index (BMI) 39.9 Intake and Output for Last 24 Hours 06/14/17 06/15/17 06/16/17 23:59 23:59 23:59 Intake Total 2456 / 2456 1486 / 1486 Output Total 600 / 600 800 / 800 Balance 1856 / 1856 686 / 686 General: - - Flat affect. Afebrile. HEENT: Atraumatic, Normocephalic Neck: No Nodes, Thyroid Normal Size and Texture Lungs: Clear to auscultation, Normal air movement, No rhonchi, No wheeze Cardiovascular: Regular rate, Regular Rhythm, Normal S1, Normal S2, No murmurs Abdomen: Bowel Sounds Present, Soft, - - Declined visualization of the abdominal wound. Psych/Mental Status: Flat Affect Laboratory Results 06/15/17 19:10: WBC 10.5, RBC 4.34, Hgb 13.6, Hct 41.1, MCV 94.7, MCH 31.3, MCHC 33.1, RDW 12.6, RDW Differential 43.8, Plt Count 268, MPV 11.2, Immature Gran % (Auto) 0.300, Neut % (Auto) 71.6 H, Lymph % (Auto) 19.1, [place] % (Auto) 7.6, Eos % (Auto) 1.2, Baso % (Auto) 0.2, Absolute Neuts (auto) 7.5, Absolute Lymphs (auto) 2.01, Total Counted Not Reportable 06/15/17 19:10: PT 14.5, INR 1.2 06/15/17 19:10: Sodium 136, Potassium 4.2, Chloride 101, Carbon Dioxide 23.0, Anion Gap 12, BUN 12, Creatinine 0.66, Estim Creat Clear Calc 87.82, Est GFR ( MDRD) Af Amer 126, Est GFR (MDRD) Non-Af 104, BUN/Creatinine Ratio 18.1, Glucose 332 H, Calcium 8.9, Total Bilirubin 0.30, AST 13 L, ALT 21, Alkaline Phosphatase 150 H, Total Protein 6.5, Albumin 2.8 L, Globulin 3.7, Albumin/ Globulin Ratio 0.8 L, Prealbumin 12.0 L 06/15/17 19:10: Hemoglobin A1c 12.9 H 06/15/17 19:15: POC Glucose 337 H 06/15/17 22:39: POC Glucose 332 H 06/15/17 23:00: Urine Color Yellow, Urine Clarity Sl. Cloudy, Urine pH 6.0, Ur Specific [place] 1.015, Urine Protein 30 H, Urine Glucose (UA) 1000 H, Urine Ketones 5 H, Urine Occult Blood 10 H, Urine Nitrite Negative, Urine Bilirubin Negative, Urine Urobilinogen Normal, Ur Leukocyte Esterase 500 H, Urine RBC 0-5 SEEN, Urine WBC 10-25 SEEN, Ur Squamous Epith Cells 5-10 SEEN, Urine Bacteria RARE, Urine Mucus 0 SEEN 06/15/17 : S.aureus Protein A PCR POSITIVE H, MRSA (PCR) POSITIVE H 06/16/17 06:16: POC Glucose 337 H 06/16/17 07:00: WBC 8.7, RBC 4.00 L, Hgb 12.7, Hct 38.1, MCV 95.3, MCH 31.8, MCHC 33.3, RDW 12.8, RDW Differential 45.0 H, Plt Count 239, MPV 11.0, ESR 76 H 06/16/17 07:00: Sodium 133 L, Potassium 3.5, Chloride 101, Carbon Dioxide 23.0, Anion Gap 9, BUN 13, Creatinine 0.64, Estim Creat Clear Calc 90.57, Est GFR ( MDRD) Af Amer 131, Est GFR (MDRD) Non-Af 109, BUN/Creatinine Ratio 20.4 H, Glucose 307 H, Calcium 8.3 L, C-React Prot Ext Range 134.00 H Current Medications Amlodipine Besylate (Norvasc) 5 mg PO DAILY [facility] Aspirin (Ecotrin) 81 mg PO DAILY@0800 [facility] Atorvastatin Calcium (Lipitor) 80 mg PO QHS [facility] Last Admin: 06/15/17 20:19 Dose: Not Given Dextrose (D50w Syringe) 0 gm IV X1 PRN; Protocol PRN Reason: Hypoglycemia Fluoxetine HCl (Prozac) 20 mg PO DAILY [facility] Glucagon () 1 mg IM .X1 PRN PRN Reason: Hypoglycemia Sodium Chloride () 1,000 mls @ 75 mls/hr IV .[id number] [facility] Last Admin: 06/15/17 19:31 Dose: 75 mls/hr Piperacillin Sod/Tazobactam Sod (Zosyn) 3.375 gm in 50 mls @ 12.5 mls/hr IV Q8 [facility] Last Admin: 06/16/17 06:14 Dose: 12.5 mls/hr Vancomycin HCl (Vancomycin) 1,000 mg in 200 mls @ 200 mls/hr IV Q8H [facility] Insulin Aspart (Novolog Flexpen (Bkc)) 0 units SC ACHS [facility] PRN Reason: Protocol Last Admin: 06/16/17 06:18 Dose: 8 units Insulin Detemir (Levemir (Bkc)) 20 units SC QHS [facility] Last Admin: 06/15/17 22:41 Dose: 20 units Ipratropium [place] (Atrovent) 0.5 mg INHALATION Q6HWA.RT [facility] Last Admin: 06/16/17 07:15 Dose: Not Given Lisinopril (Zestril) 10 mg PO DAILY [facility] Metoprolol Tartrate (Lopressor (Beta Familia)) 50 mg PO BID [facility] Last Admin: 06/15/17 22:41 Dose: 50 mg Morphine Sulfate (Morphine) 2 - 4 mg IV Q3H PRN PRN PRN Reason: SEVERE PAIN (6-10/10) Last Admin: 06/16/17 03:26 Dose: 4 mg Morphine Sulfate (Morphine) 2 - 4 mg IV Q3H PRN PRN PRN Reason: SEVERE PAIN (6-10/10) Nicotine (Nicoderm Cq (Pbkc)) 21 mg TRANSDERM. DAILY [facility] Last Admin: 06/16/17 00:31 Dose: 21 mg Nutritional Formula (Lactose Free) (Glucerna Shake) 120 ml PO TIDCM [facility] Nystatin (Mycostatin Powder) 1 applic TOPICAL TID [facility] PRN Reason: Protocol Last Admin: 06/16/17 00:31 Dose: 1 applicatio Sodium Chloride () 5 - 30 ml IV UD PRN PRN Reason: SALINE FLUSH Last Admin: 06/16/17 03:26 Dose: 10 ml Assessment/Plan Active and Suspected Problems Necrotizing soft tissue infection (Acute) necrotizing MRSA abscess soft tissue infection right lower abdominal wall Type 2 diabetes mellitus with other skin ulcer (Acute) Abdominal wall abscess (Acute) MRSA (methicillin resistant Staphylococcus aureus) (Acute) Vulvar cellulitis (Acute) Pelvic wall abscess and ulcer (Acute) 1. Diabetes mellitus type 2, uncontrolled On her home dose of Levemir. It appears patient has not any prandial insulin at home. She is on sliding scale here but I will add scheduled log once patient is taking diet. Patient's hemoglobin A1c is 12.9. Question if patient is actually been taking insulin as she is more she is very poorly controlled. Reluctant to start going up on her insulin regimen as of yet. Particularly if the patient is noncompliant then she may become hypoglycemic for her to aggressive. 2. Abdominal wall abscess: On vancomycin and Zosyn. Gynecology following, Dr. Uriarte on consult as well as Dr. Ng. 3. DVT prophylaxis will defer to the primary service. Code Visit Inpatient E&M: 12531 Subs Hosp L2
--- NOTE | 2017-06-16 10:02 | PCM.HP.ID ---
Problem List (1) Abdominal wall abscess Status: Acute Reason for Consult: abd abscess Consulted by: Dr. Orosco History of Present Illness: The patient is a 42 year old F with h/o DM who presented with 10 days of progressive draining, painful abscess. Developed some redness, pain, swelling over lower abd around New Year's megan, she thinks her jeans rubbed at the spot. Has h/o skin abscess in the past, but not recently. Started to have purulent drainage from abd as well as L inguinal/perineal area. Pain worsened, went to urgent care 06/10, given bactrim, reports wound swab was sent. Sx continued to worsen, so came to ED yesterday. Reports some chills. CT done, admitted on vanc/zosyn, plan for OR today with Dr. Uriarte. Full ROS performed and neg except as noted above. Pain slightly better today. - Medical History Past Medical History (Chronic Problems): Chronic Problems NSTEMI (non-ST elevated myocardial infarction) (Chronic) HTN (hypertension) (Chronic) Diabetes mellitus (Chronic) HLD (hyperlipidemia) (Chronic) Tobacco abuse (Chronic) Allergies/Adverse Reactions: Allergies No Known Allergies Allergy (Verified 08/26/15 15:15) Home Medications: Ambulatory Orders Medication Instructions Recorded Fluoxetine [Prozac] 60 mg PO DAILY 05/20/16 Metoprolol Tartrate [Lopressor 50 mg PO BID #60 tablet 05/22/16 (beta steph)] Amlodipine [Norvasc] 5 mg PO DAILY 06/15/17 Aspirin E.C. [Ecotrin] 81 mg PO DAILY@0800 06/15/17 Atorvastatin Calcium [Lipitor] 80 mg PO QHS 06/15/17 Clopidogrel Bisulfate [Plavix] 75 mg PO DAILY 06/15/17 Insulin Detemir [Levemir FlexPen] 20 units SC QHS 06/15/17 Lisinopril [Zestril] 10 mg PO DAILY 06/15/17 Tiotropium Bonnyman [Spiriva 18 MCG] 1 puff INHALATION DAILY PRN 06/15/17 - Social History Tobacco Use: cigarettes Vital Signs Temp Pulse Resp BP Pulse Ox 97.5 F L 78 16 125/78 H 95 06/16/17 03:20 06/16/17 03:20 06/16/17 03:20 06/16/17 03:20 06/16/17 03:20 Oxygen Delivery Method Room Air Weight: 99.11 kg Body Mass Index (BMI) 39.9 Laboratory Tests Past 24 Hrs 06/15/17 06/15/17 06/15/17 19:10 19:10 19:10 WBC 10.5 RBC 4.34 Hgb 13.6 Hct 41.1 MCV 94.7 MCH 31.3 MCHC 33.1 RDW 12.6 RDW Differential 43.8 Plt Count 268 MPV 11.2 Immature Gran % (Auto) 0.300 Neut % (Auto) 71.6 H Lymph % (Auto) 19.1 [place] % (Auto) 7.6 Eos % (Auto) 1.2 Baso % (Auto) 0.2 Absolute Neuts (auto) 7.5 Absolute Lymphs (auto) 2.01 Total Counted Not Reportable ESR PT 14.5 INR 1.2 Sodium 136 Potassium 4.2 Chloride 101 Carbon Dioxide 23.0 Anion Gap 12 BUN 12 Creatinine 0.66 Estim Creat Clear Calc 87.82 Est GFR (MDRD) Af Amer 126 Est GFR (MDRD) Non-Af 104 BUN/Creatinine Ratio 18.1 Glucose 332 H Hemoglobin A1c Calcium 8.9 Total Bilirubin 0.30 AST 13 L ALT 21 Alkaline Phosphatase 150 H C-React Prot Ext Range Total Protein 6.5 Albumin 2.8 L Globulin 3.7 Albumin/Globulin Ratio 0.8 L Prealbumin 12.0 L Urine Color Urine Clarity Urine pH Ur Specific [place] Urine Protein Urine Glucose (UA) Urine Ketones Urine Occult Blood Urine Nitrite Urine Bilirubin Urine Urobilinogen Ur Leukocyte Esterase Urine RBC Urine WBC Ur Squamous Epith Cells Urine Bacteria Urine Mucus S.aureus Protein A PCR MRSA (PCR) 06/15/17 06/15/17 06/15/17 19:10 23:00 Unknown WBC RBC Hgb Hct MCV MCH MCHC RDW RDW Differential Plt Count MPV Immature Gran % (Auto) Neut % (Auto) Lymph % (Auto) [place] % (Auto) Eos % (Auto) Baso % (Auto) Absolute Neuts (auto) Absolute Lymphs (auto) Total Counted ESR PT INR Sodium Potassium Chloride Carbon Dioxide Anion Gap BUN Creatinine Estim Creat Clear Calc Est GFR (MDRD) Af Amer Est GFR (MDRD) Non-Af BUN/Creatinine Ratio Glucose Hemoglobin A1c 12.9 H Calcium Total Bilirubin AST ALT Alkaline Phosphatase C-React Prot Ext Range Total Protein Albumin Globulin Albumin/Globulin Ratio Prealbumin Urine Color Yellow Urine Clarity Sl. Cloudy Urine pH 6.0 Ur Specific [place] 1.015 Urine Protein 30 H Urine Glucose (UA) 1000 H Urine Ketones 5 H Urine Occult Blood 10 H Urine Nitrite Negative Urine Bilirubin Negative Urine Urobilinogen Normal Ur Leukocyte Esterase 500 H Urine RBC 0-5 SEEN Urine WBC 10-25 SEEN Ur Squamous Epith Cells 5-10 SEEN Urine Bacteria RARE Urine Mucus 0 SEEN S.aureus Protein A PCR POSITIVE H MRSA (PCR) POSITIVE H 06/16/17 06/16/17 07:00 07:00 WBC 8.7 RBC 4.00 L Hgb 12.7 Hct 38.1 MCV 95.3 MCH 31.8 MCHC 33.3 RDW 12.8 RDW Differential 45.0 H Plt Count 239 MPV 11.0 Immature Gran % (Auto) Neut % (Auto) Lymph % (Auto) [place] % (Auto) Eos % (Auto) Baso % (Auto) Absolute Neuts (auto) Absolute Lymphs (auto) Total Counted ESR 76 H PT INR Sodium 133 L Potassium 3.5 Chloride 101 Carbon Dioxide 23.0 Anion Gap 9 BUN 13 Creatinine 0.64 Estim Creat Clear Calc 90.57 Est GFR (MDRD) Af Amer 131 Est GFR (MDRD) Non-Af 109 BUN/Creatinine Ratio 20.4 H Glucose 307 H Hemoglobin A1c Calcium 8.3 L Total Bilirubin AST ALT Alkaline Phosphatase C-React Prot Ext Range 134.00 H Total Protein Albumin Globulin Albumin/Globulin Ratio Prealbumin Urine Color Urine Clarity Urine pH Ur Specific [place] Urine Protein Urine Glucose (UA) Urine Ketones Urine Occult Blood Urine Nitrite Urine Bilirubin Urine Urobilinogen Ur Leukocyte Esterase Urine RBC Urine WBC Ur Squamous Epith Cells Urine Bacteria Urine Mucus S.aureus Protein A PCR MRSA (PCR) - Other Studies Radiology: [] reviewed Other Studies: [] Route of nutrition/ use of supplements: [] Nutritional Intake: [] IV Site: [] Nicholson Catheter: [] - Physical Exam General: Alert, Oriented x3, Cooperative, No apparent distress HEENT: Atraumatic, PERRLA, EOMI Neck: Supple, No Nodes Lungs: Clear to auscultation, Normal air movement Cardiovascular: Regular rate, Regular Rhythm, No murmurs Abdomen: Bowel Sounds Present, Soft, Non-Distended, Tender - R lower abd with tenderness around draining abscess Extremities: - - Swelling, redness, drainage from L perineal/inguinal area Skin: Rash Present IV Site: Peripheral, without redness Musculoskeletal: No Tenderness to Palpation of Joints or Extremities Neurological: Cranial nerves II-XII grossly intact - Assessment/Plan Antibiotics: [] Assessment/Plan: [] Active and Suspected Problems Necrotizing soft tissue infection (Acute) necrotizing MRSA abscess soft tissue infection right lower abdominal wall Type 2 diabetes mellitus with other skin ulcer (Acute) Abdominal wall abscess (Acute) MRSA (methicillin resistant Staphylococcus aureus) (Acute) Vulvar cellulitis (Acute) Pelvic wall abscess and ulcer (Acute) PCR (+) for MRSA. OR today for debridement, would send aerobic and anaerobic cxs. There is concern for necrosis, so will add clinda for anti-toxin effect. Cont vanc/zosyn. Thank you, will follow.
[2017-06-16] MEDS: Lisinopril 10 MG Tablet PO (10:08)
[2017-06-16] MEDS: FLUoxetine 20 MG Capsule PO (10:08)
[2017-06-16] MEDS: amLODIPine 5 MG Tablet PO (10:08)
[2017-06-16] MEDS: Metoprolol Tartrate 50 MG Tablet PO ×2 (10:08→22:15)
--- NOTE | 2017-06-16 11:35 | PCM.PN.OB ---
Patient Problems: Active and Suspected Problems Necrotizing soft tissue infection (Acute) necrotizing MRSA abscess soft tissue infection right lower abdominal wall Type 2 diabetes mellitus with other skin ulcer (Acute) Abdominal wall abscess (Acute) MRSA (methicillin resistant Staphylococcus aureus) (Acute) Vulvar cellulitis (Acute) Pelvic wall abscess and ulcer (Acute) Subjective: pain well controlled. No N/V. No other c/o this am - Physical Exam General: Alert, Cooperative, No apparent distress Vital Signs Temp Pulse Resp BP Pulse Ox 96.5 F L 77 18 130/68 H 97 06/16/17 10:06 06/16/17 10:08 06/16/17 10:06 06/16/17 10:06 06/16/17 10:06 Oxygen Delivery Method Room Air Weight: 99.11 kg Body Mass Index (BMI) 39.9 Intake and Output for Last 24 Hours 06/14/17 06/15/17 06/16/17 23:59 23:59 23:59 Intake Total 2456 / 2456 1486 / 1486 Output Total 600 / 600 1200 / 1200 Balance 1856 / 1856 286 / 286 Laboratory Tests Past 24 Hrs 06/15/17 06/15/17 06/15/17 19:10 19:10 19:10 WBC 10.5 RBC 4.34 Hgb 13.6 Hct 41.1 MCV 94.7 MCH 31.3 MCHC 33.1 RDW 12.6 RDW Differential 43.8 Plt Count 268 MPV 11.2 Immature Gran % (Auto) 0.300 Neut % (Auto) 71.6 H Lymph % (Auto) 19.1 [place] % (Auto) 7.6 Eos % (Auto) 1.2 Baso % (Auto) 0.2 Absolute Neuts (auto) 7.5 Absolute Lymphs (auto) 2.01 Total Counted Not Reportable ESR PT 14.5 INR 1.2 Sodium 136 Potassium 4.2 Chloride 101 Carbon Dioxide 23.0 Anion Gap 12 BUN 12 Creatinine 0.66 Estim Creat Clear Calc 87.82 Est GFR (MDRD) Af Amer 126 Est GFR (MDRD) Non-Af 104 BUN/Creatinine Ratio 18.1 Glucose 332 H Hemoglobin A1c Calcium 8.9 Total Bilirubin 0.30 AST 13 L ALT 21 Alkaline Phosphatase 150 H C-React Prot Ext Range Total Protein 6.5 Albumin 2.8 L Globulin 3.7 Albumin/Globulin Ratio 0.8 L Prealbumin 12.0 L Urine Color Urine Clarity Urine pH Ur Specific [place] Urine Protein Urine Glucose (UA) Urine Ketones Urine Occult Blood Urine Nitrite Urine Bilirubin Urine Urobilinogen Ur Leukocyte Esterase Urine RBC Urine WBC Ur Squamous Epith Cells Urine Bacteria Urine Mucus S.aureus Protein A PCR MRSA (PCR) 06/15/17 06/15/17 06/15/17 19:10 23:00 Unknown WBC RBC Hgb Hct MCV MCH MCHC RDW RDW Differential Plt Count MPV Immature Gran % (Auto) Neut % (Auto) Lymph % (Auto) [place] % (Auto) Eos % (Auto) Baso % (Auto) Absolute Neuts (auto) Absolute Lymphs (auto) Total Counted ESR PT INR Sodium Potassium Chloride Carbon Dioxide Anion Gap BUN Creatinine Estim Creat Clear Calc Est GFR (MDRD) Af Amer Est GFR (MDRD) Non-Af BUN/Creatinine Ratio Glucose Hemoglobin A1c 12.9 H Calcium Total Bilirubin AST ALT Alkaline Phosphatase C-React Prot Ext Range Total Protein Albumin Globulin Albumin/Globulin Ratio Prealbumin Urine Color Yellow Urine Clarity Sl. Cloudy Urine pH 6.0 Ur Specific [place] 1.015 Urine Protein 30 H Urine Glucose (UA) 1000 H Urine Ketones 5 H Urine Occult Blood 10 H Urine Nitrite Negative Urine Bilirubin Negative Urine Urobilinogen Normal Ur Leukocyte Esterase 500 H Urine RBC 0-5 SEEN Urine WBC 10-25 SEEN Ur Squamous Epith Cells 5-10 SEEN Urine Bacteria RARE Urine Mucus 0 SEEN S.aureus Protein A PCR POSITIVE H MRSA (PCR) POSITIVE H 06/16/17 06/16/17 07:00 07:00 WBC 8.7 RBC 4.00 L Hgb 12.7 Hct 38.1 MCV 95.3 MCH 31.8 MCHC 33.3 RDW 12.8 RDW Differential 45.0 H Plt Count 239 MPV 11.0 Immature Gran % (Auto) Neut % (Auto) Lymph % (Auto) [place] % (Auto) Eos % (Auto) Baso % (Auto) Absolute Neuts (auto) Absolute Lymphs (auto) Total Counted ESR 76 H PT INR Sodium 133 L Potassium 3.5 Chloride 101 Carbon Dioxide 23.0 Anion Gap 9 BUN 13 Creatinine 0.64 Estim Creat Clear Calc 90.57 Est GFR (MDRD) Af Amer 131 Est GFR (MDRD) Non-Af 109 BUN/Creatinine Ratio 20.4 H Glucose 307 H Hemoglobin A1c Calcium 8.3 L Total Bilirubin AST ALT Alkaline Phosphatase C-React Prot Ext Range 134.00 H Total Protein Albumin Globulin Albumin/Globulin Ratio Prealbumin Urine Color Urine Clarity Urine pH Ur Specific [place] Urine Protein Urine Glucose (UA) Urine Ketones Urine Occult Blood Urine Nitrite Urine Bilirubin Urine Urobilinogen Ur Leukocyte Esterase Urine RBC Urine WBC Ur Squamous Epith Cells Urine Bacteria Urine Mucus S.aureus Protein A PCR MRSA (PCR) POC Glucose 06/16/17 06/15/17 06/15/17 06:16 22:39 19:15 POC Glucose 337 H 332 H 337 H Assessment/Plan Active and Suspected Problems Necrotizing soft tissue infection (Acute) necrotizing MRSA abscess soft tissue infection right lower abdominal wall Type 2 diabetes mellitus with other skin ulcer (Acute) Abdominal wall abscess (Acute) MRSA (methicillin resistant Staphylococcus aureus) (Acute) Vulvar cellulitis (Acute) Pelvic wall abscess and ulcer (Acute) HD#2 on IV abx. ID consult was pending when I rounded, reviewed now plan for I&D of abdominal wall and groin wounds/abscesses this afternoon. R/B/A/p to this reviewed. Questions answered. Consent signed. Will request for medicine or ID to assume care after surgery as elevator inspector will have minimal input as to management after surgery. Would be available prn if further elevator inspector management needed.
--- NOTE | 2017-06-16 11:53 | CASEMGMT ---
See assessment. SW spoke w/pt in room in regard to discharge plan, mental health, substance abuse history. SW lives home w/10 yr old daughter, works in a fpc with [employer]. Pt states daughter is with other family. Pt agreeable to home health at discharge for wound care and IV antibiotics if needed. Pt does not want home health, but is agreeable to it. 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 SW explained that an RN will need to oversee it. Pt agreeable to a referral to [facility]. SW asked about mental health, pt states does have history of depression, is on Prozac and sees a counselor at [facility]. She states she finds the counseling helpful. SW also asked pt about history of substance abuse, pt denies any history of substance abuse. SW/CM will continue to follow for discharge planning needs. MICHELLE Jaquez, CUSTOMER COMPLAINT CLERK
[2017-06-16 12:51] LABS: Bedside Glucose 263 mg/dL (70-110)
--- NOTE | 2017-06-16 16:04 | OP.PCM_ITS ---
Report of Operation Date of Procedure: 06/16/17 Pre-Operative Diagnosis: Necrotizing left groin and vulvar MRSA positive abscess Post-Operative Diagnosis: same Surgery/Procedure Performed:: Debridement of left groin and vulvar abscess Description of Surgical Findings:: purulent, indurated large abscess of left groin/vulva finish photographer: None Type of Anesthesia:: General Anesthesiologist: Pascual Quesada Special Medications: none Specimen's removed: vulvar abscess and necrotic tissue and adipose tissue Drains: valdivia Estimated Blood Loss (mL): 250 Fluids Replaced: 1300cc Description of Procedure: The patient was taken to the operating room where she was prepped and draped in dorsal lithotomy position. Her arms were left out at her sides. Dr. Uriarte performed the resection of the abscess from the abdominal panniculus. I then wedged out the abscess out of her groin area that was 10 x 10 cm in diameter with some surrounding indurated tissue. Also a tract that went superiorly and additional 3 cm under the fat noted once the incision was made. There was taken to Bovie cauterized or clamped and suture ligate any large vessels that were encountered. There was also taken to ensure that all the necrotic and indurated tissue was removed and there were fresh wound edges. Wound extended to the fascia of the abductors of the left leg. The wound was measured for future reference by Dr. Uriarte. Any active bleeding was Bovie cauterized. Dr. Uriarte agreed that we had adequate margins. Wound extended to the left labia majora but the left labia majora was not removed. The wound was left open and packed in the same fashion as Dr.'s Uriarte's wound with his instruction. A bandage was placed and the patient was taken to the recovery room in a stable condition. Grafts/Implants Used: none- wounds packed - Complications none - Admit VTE Documentation VTE Present on Admission: No VTE Mechan Device Prophylaxis: SCD's VTE Pharm Prophylaxis ordered?: No
[2017-06-16 17:01] LABS: Bedside Glucose 286 mg/dL (70-110)
--- NOTE | 2017-06-16 17:11 | PCM.IMDPSTOP ---
Immediate Post-Op Note Date of Procedure: 06/16/17 Primary Surgeon/Physician: Brian Uriarte receiving and processing supervisor: Ana Hayes Pre-Operative Diagnosis: 1. 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 2. Necrotizing MRSA diabetic abscess left inguinal and perineal area. 3. Abdominal wall panniculus with panniculitis. 4. Diabetes mellitus. 5. MRSA. 6. Smoker. 7. Obesity. Post-Operative Diagnosis: Same. Surgery/Procedure Performed:: Surgical preparation right lower anterior abdominal wall with excisional debridement skin, subcutaneous tissue, and fascia for necrotizing MRSA diabetic abscess soft tissue infection and abdominal panniculectomy (290 cm2). Description of Surgical Findings:: 42-year-old woman with a history of poorly controlled diabetes mellitus was seen today with a nonhealing MRSA diabetic ulcer abscess right lower abdominal wall. She also has an abscess in her left inguinal and perineal area as well. She states she first noticed the increasing redness and swelling and pain on Michelle. She went to an urgent care center where a localized I&D procedure was done and the patient was started on Bactrim DS. She was told that the I&D showed MRSA. Patient was seen earlier today at [facility] by Dr. Hayes. With the worsening symptomatology of the right lower abdominal wall MRSA abscess, she felt the patient needed more aggressive antibiotic therapy and surgical debridement, and the patient was admitted to the hospital and started on IV Vancomycin. A CT Abdomen and Pelvis was done which did not show obvious underlying abscess. There was no intra-abdominal process present. I was asked to evaluate this patient for surgical options for treatment. In addition to the MRSA abscess in the right lower abdominal wall, the patient also has a localized abscess in the left inguinal and perineal area as well. Today the patient underwent surgical preparation right lower anterior abdominal wall with excisional debridement skin, subcutaneous tissue, and fascia for necrotizing MRSA diabetic abscess soft tissue infection and abdominal panniculectomy (290 [address]2). Dr. Hayes also performed incision and drainage and excisional debridement necrotizing MRSA diabetic abscess left inguinal and perineal (vulvar) area. Size of defect right lower abdominal wall - 10 x 29 x 4 cm. Size of defect left inguinal and perineal area - 9 x 19 x 4 cm. Estimated Blood Loss: 250 ml. Specimen's removed: 1. Necrotizing MRSA diabetic abscess tissue abdominal wall to Pathology and Microbiology. 2. Necrotizing MRSA diabetic vulvar abscess with necrotic tissue and adipose tissue to Pathology and Microbiology. Drains: Nicholson catheter. Type of Anesthesia:: General Special Medications: none - Admit VTE Documentation VTE Present on Admission: No VTE Mechan Device Prophylaxis: SCD's VTE Pharm Prophylaxis ordered?: Yes
[2017-06-16 18:51] LABS: Bedside Glucose 317 mg/dL (70-110)
--- NOTE | 2017-06-16 19:30 | NURSING ---
Upon entering room patient was speaking on her phone on speaker phone with a female discussing signing out AMA of hospital. Also patient was voicing her dislike for d/c to custodial. Patient believes the state will take her daughter from her if she is at custodial. Education on d/c planning provided. Explained role of invasive manager and benefits of having 24/7 nursing supervised care at a SNF. Patient asked about home health, explained this is an option but RN would still need to oversee care. 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 I explained to patient she would not only have to care for herself but daughter and house as well and this may be difficult for her with the wound vac and other health needs. After conversation pt seems more agreeable to possible d/c to SNF in order to get her health better so that she can go home and care for daughter as she was before.
--- NOTE | 2017-06-16 19:56 | NURSING ---
Patient refusing to wear O2. Is 90% on RA, 95% on 2L. Patient immediately removed after this nurse replaced. Education provided.
[2017-06-16 22:10] LABS: Bedside Glucose 268 mg/dL (70-110)
[2017-06-16] MEDS: 0.9% Normal Saline 1,000 ML 75 ML IV (22:14)
[2017-06-16] MEDS: Clindamycin 600 MG/50 ML BAG 100 MG IV (22:14)
[2017-06-16] MEDS: Atorvastatin Calcium 80 MG Tablet PO (22:15)
--- NOTE | 2017-06-17 01:35 | NURSING ---
Patient significant other brought patient a food, non diabetic. Offered other options to patient that were compliant with diabetic diet. Patient refusing and very rude to this nurse.
[2017-06-17 01:51] VITALS: BP 120/71; PULSE 69; RESP 18; TEMP 36.6; O2SAT 92
[2017-06-17] MEDS: Piperacil/Tazobactam 3.375 GM/50 ML ML IV ×2 (01:52→09:34)
--- NOTE | 2017-06-17 03:05 | NURSING ---
PT HAVING 02 SATS IN MID TO HIGH 80'S WHEN SLEEPING. PT REFUSING TO WEAR 2L NC. PT ADVISED OF CONSEQUENCES, BUT PT STEADFASTLY REFUSES TO BE COMPLIANT WITH EITHER NC 02 OR WEARING SCD'S.
[2017-06-17] MEDS: Acetaminophen 325 MG Tablet 650 MG PO ×2 (03:27→11:55)
--- NOTE | 2017-06-17 03:56 | NURSING ---
O2 sats continue to drop to high 70s-80. Patient continues to refuse to wear O2. Offered option of a mask rather than nasal canula, patient refused. Explained this may also be contributing to her headache. Education provided to patient on relation of hypoxemia to body, but patient remains adamant. O2 currently 83 on continuous pulseox.
--- NOTE | 2017-06-17 04:06 | NURSING ---
Call to [facility] for new CPAP order.
--- NOTE | 2017-06-17 04:35 | [facility] ---
Made aware of patients low spO2 and that pt is refusing to wear nasal cannula. Dr Orosco ordered CPAP. Spoke with pt about order and CPAP education. Pt was agitated I woke her up. Pt stated, I ain't wearin no CPAP!.
--- NOTE | 2017-06-17 05:24 | NURSING ---
O2 sats in 70s, awakened patient in order to get oxygen levels up, patient became very agitated with this nurse for waking her. Attempted to educate/explain why I woke her but patient turned head away from nurse, arms crossed, and did not show active interest in conversation. While awake O2 in high 80s.
[2017-06-17] MEDS: Clindamycin 600 MG/50 ML BAG 100 MG IV ×3 (06:22→21:36)
[2017-06-17] MEDS: Enoxaparin 40 MG/0.4 ML Syringe SC (06:22)
[2017-06-17 06:36] LABS: Bedside Glucose 225 mg/dL (70-110)
[2017-06-17 07:10] LABS: Absolute Lymphocyte Count 1.84 X10^3/ul (0.83-4.51); Absolute Neutrophil Count 9.6 X10^3/uL (2.0-7.7); Basophil# 0.01 X10^3/uL; Basophil% 0.1 % (0-1); Hematocrit 37.2 % (37-47); Hemoglobin 12.4 g/dl (12.0-15.0); Lymphocyte # 1.84 X10^3/ul (4.0); Mean Corp Hgb Conc 33.3 g/gl (32-36); Mean Corpuscular Hgb 31.4 pg (27.0-32.0); Mean Corpuscular Volume 94.2 fL (81-99); Mean Platelet Vol. 10.9 fl (6.2-12.0); Monocyte% 5.7 % (0-10); Neutrophil # 9.63 X10^3/uL (2.7-7.7); Neutrophil % 78.6 % (47-70); Platelet Count 263 K/mm3 (150-450); RBC Distribution Width CV 12.4 % (11.6-14.6); RBC Distribution Width SD 42.4 fl (35.1-43.9); Red Blood Count 3.95 M/mm3 (4.2-5.4); White Blood Count 12.3 K/mm3 (4.4-11.0)
[2017-06-17 07:12] LABS: POSITIVE COUNT NO; POSITIVE DIFFERENTIAL NO; POSITIVE MORPHOLOGY NO
[2017-06-17 07:29] LABS: Anion Gap 7 (5-15); BUN 9 mg/dL (7-18); BUN/Creat Ratio 17.1 RATIO (10-20); Calcium,Total 8.1 mg/dL (8.5-10.1); Chloride 104 mmol/L (98-107); Creatinine, Serum 0.53 mg/dL (0.55-1.02); EST Glomerular Filtration Rate 135 mL/min (>60); Est Glom Filt Rate - Afr Amer 164 mL/min (>60); Estimated Creatinine Clearance 109.36 ml/min; Glucose 239 mg/dL (70-110); Potassium 3.8 mmol/L (3.5-5.1); Sodium Level 135 mmol/L (136-145)
[2017-06-17] MEDS: 0.9% NaCl Peripheral Flush Adult/Peds IV ×2 (08:52→20:22)
[2017-06-17 09:29] VITALS: BP 134/77; PULSE 73; RESP 18; TEMP 35.6; O2SAT 93
[2017-06-17 09:35] VITALS: PULSE 73
[2017-06-17] MEDS: FLUoxetine 20 MG Capsule PO (09:35)
[2017-06-17] MEDS: Metoprolol Tartrate 50 MG Tablet PO ×2 (09:35→21:35)
[2017-06-17] MEDS: Aspirin E.C. 81 MG Tablet PO (09:35)
[2017-06-17] MEDS: amLODIPine 5 MG Tablet PO (09:35)
[2017-06-17] MEDS: Lisinopril 10 MG Tablet PO (09:35)
[2017-06-17] MEDS: Glucerna Shake 120 ML LIQUID PO ×2 (09:36→17:10)
--- NOTE | 2017-06-17 10:10 | NURSING ---
wound photo: left inguinal/perineal
--- NOTE | 2017-06-17 10:11 | NURSING ---
wound photo: lower abdominal wall
--- NOTE | 2017-06-17 11:22 | OP.PCM_ITS ---
Report of Operation Date of Procedure: 06/16/17 Pre-Operative Diagnosis: 1. 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 2. Necrotizing MRSA diabetic abscess left inguinal and perineal area. 3. Abdominal wall panniculus with panniculitis. 4. Diabetes mellitus. 5. MRSA. 6. Smoker. 7. Obesity. Post-Operative Diagnosis: Same. Surgery/Procedure Performed:: Surgical preparation right lower anterior abdominal wall with excisional debridement skin, subcutaneous tissue, and fascia for necrotizing MRSA diabetic abscess soft tissue infection and abdominal panniculectomy (290 cm2). Description of Surgical Findings:: 42-year-old woman with a history of poorly controlled diabetes mellitus was seen today with a nonhealing MRSA diabetic ulcer abscess right lower abdominal wall. She also has an abscess in her left inguinal and perineal area as well. She states she first noticed the increasing redness and swelling and pain on Michelle. She went to an urgent care center where a localized I&D procedure was done and the patient was started on Bactrim DS. She was told that the I&D showed MRSA. Patient was seen earlier today at [facility] by Dr. Hayes. With the worsening symptomatology of the right lower abdominal wall MRSA abscess, she felt the patient needed more aggressive antibiotic therapy and surgical debridement, and the patient was admitted to the hospital and started on IV Vancomycin. A CT Abdomen and Pelvis was done which did not show obvious underlying abscess. There was no intra- abdominal process present. I was asked to evaluate this patient for surgical options for treatment. In addition to the MRSA abscess in the right lower abdominal wall, the patient also has a localized abscess in the left inguinal and perineal area as well. Patient was informed of the risks and complications of the procedure including alternatives to surgery. These were discussed with her personally. She voiced understanding and wishes to proceed. She understands the wounds will be left open initially and packed with wound care. Encouraged the patient to stop smoking as it may have deleterious effects on wound healing. Dr. Hayes also performed incision and drainage and excisional debridement necrotizing MRSA diabetic abscess left inguinal and perineal (vulvar) area. Size of defect right lower abdominal wall - 10 x 29 x 4 cm. Size of defect left inguinal and perineal area - 9 x 19 x 4 cm. digital measurement advisor: Ana Hayes Type of Anesthesia:: General Special Medications: none Specimen's removed: 1. Necrotizing MRSA diabetic abscess tissue abdominal wall to Pathology and Microbiology. 2. Necrotizing MRSA diabetic vulvar abscess with necrotic tissue and adipose tissue to Pathology and Microbiology. Drains: Valdivia catheter. Estimated Blood Loss (mL): 250 ml. Description of Procedure: The patient was taken to OR in supine position and was placed under general anesthesia. She was then placed in the lithotomy position and her abdominal wall and her inguinal and perineal areas were prepped and draped in the usual fashion. I then started with the abdominal wall surgery with Dr. Hayes assisting. It was difficult for both of us operating at the same time. So after I completed the abdominal wall debridement, Dr. Hayes then proceeded with drainage and debridement of the left inguinal and perineal abscess. Adjacent to the necrotizing MRSA diabetic ulcer abscess on the right lower abdominal wall was a large area of induration extending down to the abdominal wall fascia. I proceeded with an incision and drainage of this necrotizing abscess in a wide fashion because of the anticipated extent of this complex necrotizing MRSA diabetic abscess. The underlying subcutaneous tissue was quite indurated with a lot of fat necrosis present. Some pus was seen. Minimal odor could be detected. A wide excisional debridement was then performed through the necrotizing subcutaneous tissue and Adryan's fascia until the abdominal wall fascia was seen. The fascia appeared viable yet inflamed. A curette was used as the inflamed fascia was debrided. Good bleeding was seen on the underlying fascia. Some of this necrotizing tissue was sent to Microbiology for culture. The rest of the tissue was sent to Pathology for analysis to rule out carcinoma. The wound was copiously irrigated out with saline. Hemostasis was obtained with electrocautery. The size of the abdominal wall defect after the incision and drainage and excisional debridement was 10 x 29 x 4 cm. In addition to the aggressive excisional debridement of this necrotizing infection, I excised additional abdominal wall tissue in the abdominal wall skin crease as a panniculectomy to make the wound care easier with the VAC. Sometimes it is harder to maintain the VAC seal if the overhanging abdominal wall skin crease and large abdominal panniculus is not excised and left behind. Once this abdominal wall wound was stabilized after hemostasis was obtained with electrocautery, Dr. Hayes then proceeded with incision and drainage and excisional debridement of the necrotizing MRSA diabetic abscess in the left inguinal and perineal area. That portion will be dictated separately by her. When she was completed, the size of that wound was 9 x 19 x 4 cm. Both wounds were then dressed with Mepitel nonadherent dressing followed by Kerlix gauze and Betadine followed by dry Kerlix gauze and ABD pads as a compression dressing. It was determined at the end of the procedure that due to the proximity of the wound to the vaginal opening, there would be a risk of urinary contamination. Therefore a valdivia catheter was placed while the patient was still under anesthesia. The patient tolerated the procedure well and will be sent to PACU in satisfactory condition. She will be sent back upstairs to her room for continued postop care. The VAC will be applied tomorrow. I anticipate exterminator helper need for IV antibiotics and a PICC line will be placed. I will talk to the patient postoperatively about possibly going to a facility initially while she is on IV antibiotics and until the wound care has stabilized. I am concerned that with her decreased compliance with her diabetic care (her Hgb A1c was 12.9), she will have difficulty with her complex wound care at home even with Home Health assistance. After discharge, I will followup with her at the [facility]. When seen at the Wound Center, if there is a plateau in the healing process, then we can proceed with delayed closure with skin grafting. Grafts/Implants Used: None. - Complications None. - Admit VTE Documentation VTE Present on Admission: No VTE Mechan Device Prophylaxis: SCD's VTE Pharm Prophylaxis ordered?: Yes
--- NOTE | 2017-06-17 11:45 | PCM.PN.HOSP ---
Patient Problems: Active and Suspected Problems Necrotizing soft tissue infection (Acute) necrotizing MRSA abscess soft tissue infection right lower abdominal wall Type 2 diabetes mellitus with other skin ulcer (Acute) Abdominal wall abscess (Acute) MRSA (methicillin resistant Staphylococcus aureus) (Acute) Vulvar cellulitis (Acute) Pelvic wall abscess and ulcer (Acute) Subjective: Planing of left-sided headache. She is be worse after receiving the morphine. Patient took some Tylenol last night around 3 AM and then went back to sleep. Vitals/I&O's: Vital Signs Temp Pulse Resp BP Pulse Ox 35.6 C L 73 18 134/77 H 93 06/17/17 09:29 06/17/17 09:35 06/17/17 09:29 06/17/17 09:29 06/17/17 09:29 Oxygen Flow Rate 2 Oxygen Delivery Method Room Air Weight: 99.11 kg Body Mass Index (BMI) 39.9 Finger Stick Blood Glucose 286 Intake and Output for Last 24 Hours 06/15/17 06/16/17 06/17/17 23:59 23:59 23:59 Intake Total 2456 / 2456 4524 / 4524 1690 / 1690 Output Total 600 / 600 2375 / 2375 750 / 750 Balance 1856 / 1856 2149 / 2149 940 / 940 General: Alert, Cooperative, No apparent distress HEENT: Atraumatic, Normocephalic Psych/Mental Status: Normal Affect, Appropriate Microbiology Past 72 Hours 06/15/17 23:00 Urine, Clean Catch Urine Culture - Preliminary Mixed Gram Positive Organisms 06/16/17 16:41 Tissue - Groin Gram Stain - Final 06/16/17 16:41 Tissue - Abdominal Gram Stain - Final Laboratory Results 06/16/17 12:37: POC Glucose 263 H 06/16/17 16:55: POC Glucose 286 H 06/16/17 18:15: POC Glucose 317 H 06/16/17 22:01: POC Glucose 268 H 06/17/17 06:20: POC Glucose 225 H 06/17/17 06:54: WBC 12.3 H, RBC 3.95 L, Hgb 12.4, Hct 37.2, MCV 94.2, MCH 31.4, MCHC 33.3, RDW 12.4, RDW Differential 42.4, Plt Count 263, MPV 10.9, Immature Gran % (Auto) 0.600, Neut % (Auto) 78.6 H, Lymph % (Auto) 15.0 L, [place] % (Auto) 5.7, Eos % (Auto) 0.0, Baso % (Auto) 0.1, Absolute Neuts (auto) 9.6 H, Absolute Lymphs (auto) 1.84, Total Counted Not Reportable 06/17/17 06:54: Sodium 135 L, Potassium 3.8, Chloride 104, Carbon Dioxide 24.0, Anion Gap 7, BUN 9, Creatinine 0.53 L, Estim Creat Clear Calc 109.36, Est GFR (MDRD) Af Amer 164, Est GFR (MDRD) Non-Af 135, BUN/Creatinine Ratio 17.1, Glucose 239 H, Calcium 8.1 L Current Medications Acetaminophen (Tylenol) 650 mg PO Q4H PRN PRN PRN Reason: Mild pain/fever Last Admin: 06/17/17 03:27 Dose: 650 mg Amlodipine Besylate (Norvasc) 5 mg PO DAILY [facility] Last Admin: 06/17/17 09:35 Dose: 5 mg Aspirin (Ecotrin) 81 mg PO DAILY@0800 [facility] Last Admin: 06/17/17 09:35 Dose: 81 mg Atorvastatin Calcium (Lipitor) 80 mg PO QHS [facility] Last Admin: 06/16/17 22:15 Dose: 80 mg Dextrose (D50w Syringe) 0 gm IV X1 PRN; Protocol PRN Reason: Hypoglycemia Dextrose (D50w Syringe) 0 gm IV X1 PRN; Protocol PRN Reason: Hypoglycemia Enoxaparin Sodium (Lovenox) 40 mg SC DAILY@0600 [facility] Last Admin: 06/17/17 06:22 Dose: 40 mg Fluoxetine HCl (Prozac) 20 mg PO DAILY [facility] Last Admin: 06/17/17 09:35 Dose: 20 mg Glucagon () 1 mg IM .X1 PRN PRN Reason: Hypoglycemia Glucagon () 1 mg IM .X1 PRN PRN Reason: Hypoglycemia Sodium Chloride () 1,000 mls @ 75 mls/hr IV .[id number] [facility] Last Admin: 06/16/17 22:14 Dose: 75 mls/hr Clindamycin Phosphate (Cleocin) 600 mg in 50 mls @ 100 mls/hr IV Q8 [facility] Last Admin: 06/17/17 06:22 Dose: 100 mls/hr Piperacillin Sod/Tazobactam (Sod 3.375 gm/ Sodium Chloride) 66.875 mls @ 12.5 mls/hr IV Q8 [facility] Vancomycin HCl (Vancomycin) 1,000 mg in 200 mls @ 200 mls/hr IV Q8H [facility] Last Admin: 06/17/17 11:34 Dose: 200 mls/hr Insulin Aspart (Novolog Flexpen (Bkc)) 0 units SC ACHS [facility] PRN Reason: Protocol Last Admin: 06/17/17 09:33 Dose: 4 units Insulin Aspart (Novolog Flexpen (Bkc)) 5 units SC TIDAC [facility] Last Admin: 06/17/17 09:33 Dose: 5 units Insulin Detemir (Levemir (Bkc)) 25 units SC QHS [facility] Ipratropium [place] (Atrovent) 0.5 mg INHALATION Q6HWA.RT [facility] Last Admin: 06/16/17 19:40 Dose: Not Given Lisinopril (Zestril) 10 mg PO DAILY [facility] Last Admin: 06/17/17 09:35 Dose: 10 mg Metoprolol Tartrate (Lopressor (Beta Familia)) 50 mg PO BID [facility] Last Admin: 06/17/17 09:35 Dose: 50 mg Morphine Sulfate (Morphine) 2 - 4 mg IV Q3H PRN PRN PRN Reason: SEVERE PAIN (6-10/10) Last Admin: 06/17/17 08:52 Dose: 4 mg Morphine Sulfate (Morphine) 2 - 4 mg IV Q3H PRN PRN PRN Reason: SEVERE PAIN (6-10/10) Last Admin: 06/16/17 22:14 Dose: 2 mg Nicotine (Nicoderm Cq (Pbkc)) 21 mg TRANSDERM. DAILY [facility] Last Admin: 06/17/17 09:34 Dose: 21 mg Nutritional Formula (Hans - [place] Flavor) [facility] Last Admin: 06/17/17 09:44 Dose: Not Given Nutritional Formula (Lactose Free) (Glucerna Shake) 120 ml PO TIDCM [facility] Last Admin: 06/17/17 09:36 Dose: 120 ml Nystatin (Mycostatin Powder) 1 applic TOPICAL TID [facility] PRN Reason: Protocol Last Admin: 06/17/17 06:22 Dose: Not Given Senna (Senokot) 1 tablet PO BID [facility] Sodium Chloride () 5 - 30 ml IV UD PRN PRN Reason: SALINE FLUSH Last Admin: 06/17/17 08:52 Dose: 10 ml Assessment/Plan Active and Suspected Problems Necrotizing soft tissue infection (Acute) necrotizing MRSA abscess soft tissue infection right lower abdominal wall Type 2 diabetes mellitus with other skin ulcer (Acute) Abdominal wall abscess (Acute) MRSA (methicillin resistant Staphylococcus aureus) (Acute) Vulvar cellulitis (Acute) Pelvic wall abscess and ulcer (Acute) 1. Diabetes mellitus type 2, uncontrolled On her home dose of Levemir. It appears patient has not any prandial insulin at home. She is on sliding scale here but I will add scheduled log once patient is taking diet. Still controlled. Will increase the Levemir from 20-25 nightly. Continue with log 5 units with meals for now. Patient's hemoglobin A1c is 12.9. Question if patient is actually been taking insulin as she is more she is very poorly controlled. Reluctant to start going up on her insulin regimen as of yet. Particularly if the patient is noncompliant then she may become hypoglycemic for her to aggressive. 2. Abdominal wall abscess: On vancomycin and Zosyn. Gynecology following, Dr. Uriarte on consult as well as Dr. Ng. Status post I&D yesterday. Follow-up culture 3. Migraine Recommend continue with Tylenol. Discussed with patient and nursing to avoid narcotics for her headache. Treatment may be some analgesic rebound associated with morphine. We will reevaluate see if patient's headache response with the Tylenol. Could utilize other agents such as Phenergan for the headaches. 4. Coronary artery disease Patient states her last stent was in May 2016. Patient is on aspirin, metoprolol, lisinopril. Plavix on hold from the surgery. Patient has completed her year long treatment with Plavix so certainly appropriate old at this time. 5. DVT prophylaxis on Lovenox. Patient declining SCDs. 6. Constipation: We will add senna. Code Visit Inpatient E&M: 86912 Subs Hosp L2
--- NOTE | 2017-06-17 11:49 | PN_ITS ---
Patient Problems: Active and Suspected Problems Necrotizing soft tissue infection (Acute) necrotizing MRSA abscess soft tissue infection right lower abdominal wall Type 2 diabetes mellitus with other skin ulcer (Acute) Abdominal wall abscess (Acute) MRSA (methicillin resistant Staphylococcus aureus) (Acute) Vulvar cellulitis (Acute) Pelvic wall abscess and ulcer (Acute) Subjective: Planing of left-sided headache. She is be worse after receiving the morphine. Patient took some Tylenol last night around 3 AM and then went back to sleep. Vitals/I&O's: Vital Signs Temp Pulse Resp BP Pulse Ox 35.6 C L 73 18 134/77 H 93 06/17/17 09:29 06/17/17 09:35 06/17/17 09:29 06/17/17 09:29 06/17/17 09:29 Oxygen Flow Rate 2 Oxygen Delivery Method Room Air Weight: 99.11 kg Body Mass Index (BMI) 39.9 Finger Stick Blood Glucose 286 Intake and Output for Last 24 Hours 06/15/17 06/16/17 06/17/17 23:59 23:59 23:59 Intake Total 2456 / 2456 4524 / 4524 1690 / 1690 Output Total 600 / 600 2375 / 2375 750 / 750 Balance 1856 / 1856 2149 / 2149 940 / 940 General: Alert, Cooperative, No apparent distress HEENT: Atraumatic, Normocephalic Psych/Mental Status: Normal Affect, Appropriate Microbiology Past 72 Hours 06/15/17 23:00 Urine, Clean Catch Urine Culture - Preliminary Mixed Gram Positive Organisms 06/16/17 16:41 Tissue - Groin Gram Stain - Final 06/16/17 16:41 Tissue - Abdominal Gram Stain - Final Laboratory Results 06/16/17 12:37: POC Glucose 263 H 06/16/17 16:55: POC Glucose 286 H 06/16/17 18:15: POC Glucose 317 H 06/16/17 22:01: POC Glucose 268 H 06/17/17 06:20: POC Glucose 225 H 06/17/17 06:54: WBC 12.3 H, RBC 3.95 L, Hgb 12.4, Hct 37.2, MCV 94.2, MCH 31.4, MCHC 33.3, RDW 12.4, RDW Differential 42.4, Plt Count 263, MPV 10.9, Immature Gran % (Auto) 0.600, Neut % (Auto) 78.6 H, Lymph % (Auto) 15.0 L, [place] % (Auto) 5.7, Eos % (Auto) 0.0, Baso % (Auto) 0.1, Absolute Neuts (auto) 9.6 H, Absolute Lymphs (auto) 1.84, Total Counted Not Reportable 06/17/17 06:54: Sodium 135 L, Potassium 3.8, Chloride 104, Carbon Dioxide 24.0, Anion Gap 7, BUN 9, Creatinine 0.53 L, Estim Creat Clear Calc 109.36, Est GFR ( MDRD) Af Amer 164, Est GFR (MDRD) Non-Af 135, BUN/Creatinine Ratio 17.1, Glucose 239 H, Calcium 8.1 L Current Medications Acetaminophen (Tylenol) 650 mg PO Q4H PRN PRN PRN Reason: Mild pain/fever Last Admin: 06/17/17 03:27 Dose: 650 mg Amlodipine Besylate (Norvasc) 5 mg PO DAILY [facility] Last Admin: 06/17/17 09:35 Dose: 5 mg Aspirin (Ecotrin) 81 mg PO DAILY@0800 [facility] Last Admin: 06/17/17 09:35 Dose: 81 mg Atorvastatin Calcium (Lipitor) 80 mg PO QHS [facility] Last Admin: 06/16/17 22:15 Dose: 80 mg Dextrose (D50w Syringe) 0 gm IV X1 PRN; Protocol PRN Reason: Hypoglycemia Dextrose (D50w Syringe) 0 gm IV X1 PRN; Protocol PRN Reason: Hypoglycemia Enoxaparin Sodium (Lovenox) 40 mg SC DAILY@0600 [facility] Last Admin: 06/17/17 06:22 Dose: 40 mg Fluoxetine HCl (Prozac) 20 mg PO DAILY [facility] Last Admin: 06/17/17 09:35 Dose: 20 mg Glucagon () 1 mg IM .X1 PRN PRN Reason: Hypoglycemia Glucagon () 1 mg IM .X1 PRN PRN Reason: Hypoglycemia Sodium Chloride () 1,000 mls @ 75 mls/hr IV .[id number] [facility] Last Admin: 06/16/17 22:14 Dose: 75 mls/hr Clindamycin Phosphate (Cleocin) 600 mg in 50 mls @ 100 mls/hr IV Q8 [facility] Last Admin: 06/17/17 06:22 Dose: 100 mls/hr Piperacillin Sod/Tazobactam (Sod 3.375 gm/ Sodium Chloride) 66.875 mls @ 12.5 mls/hr IV Q8 [facility] Vancomycin HCl (Vancomycin) 1,000 mg in 200 mls @ 200 mls/hr IV Q8H [facility] Last Admin: 06/17/17 11:34 Dose: 200 mls/hr Insulin Aspart (Novolog Flexpen (Bkc)) 0 units SC ACHS [facility] PRN Reason: Protocol Last Admin: 06/17/17 09:33 Dose: 4 units Insulin Aspart (Novolog Flexpen (Bkc)) 5 units SC TIDAC [facility] Last Admin: 06/17/17 09:33 Dose: 5 units Insulin Detemir (Levemir (Bkc)) 25 units SC QHS [facility] Ipratropium [place] (Atrovent) 0.5 mg INHALATION Q6HWA.RT [facility] Last Admin: 06/16/17 19:40 Dose: Not Given Lisinopril (Zestril) 10 mg PO DAILY [facility] Last Admin: 06/17/17 09:35 Dose: 10 mg Metoprolol Tartrate (Lopressor (Beta Familia)) 50 mg PO BID [facility] Last Admin: 06/17/17 09:35 Dose: 50 mg Morphine Sulfate (Morphine) 2 - 4 mg IV Q3H PRN PRN PRN Reason: SEVERE PAIN (6-10/10) Last Admin: 06/17/17 08:52 Dose: 4 mg Morphine Sulfate (Morphine) 2 - 4 mg IV Q3H PRN PRN PRN Reason: SEVERE PAIN (6-10/10) Last Admin: 06/16/17 22:14 Dose: 2 mg Nicotine (Nicoderm Cq (Pbkc)) 21 mg TRANSDERM. DAILY [facility] Last Admin: 06/17/17 09:34 Dose: 21 mg Nutritional Formula (Hans - [place] Flavor) [facility] Last Admin: 06/17/17 09:44 Dose: Not Given Nutritional Formula (Lactose Free) (Glucerna Shake) 120 ml PO TIDCM [facility] Last Admin: 06/17/17 09:36 Dose: 120 ml Nystatin (Mycostatin Powder) 1 applic TOPICAL TID [facility] PRN Reason: Protocol Last Admin: 06/17/17 06:22 Dose: Not Given Senna (Senokot) 1 tablet PO BID [facility] Sodium Chloride () 5 - 30 ml IV UD PRN PRN Reason: SALINE FLUSH Last Admin: 06/17/17 08:52 Dose: 10 ml Assessment/Plan Active and Suspected Problems Necrotizing soft tissue infection (Acute) necrotizing MRSA abscess soft tissue infection right lower abdominal wall Type 2 diabetes mellitus with other skin ulcer (Acute) Abdominal wall abscess (Acute) MRSA (methicillin resistant Staphylococcus aureus) (Acute) Vulvar cellulitis (Acute) Pelvic wall abscess and ulcer (Acute) 1. Diabetes mellitus type 2, uncontrolled On her home dose of Levemir. It appears patient has not any prandial insulin at home. She is on sliding scale here but I will add scheduled log once patient is taking diet. Still controlled. Will increase the Levemir from 20- 25 nightly. Continue with log 5 units with meals for now. Patient's hemoglobin A1c is 12.9. Question if patient is actually been taking insulin as she is more she is very poorly controlled. Reluctant to start going up on her insulin regimen as of yet. Particularly if the patient is noncompliant then she may become hypoglycemic for her to aggressive. 2. Abdominal wall abscess: On vancomycin and Zosyn. Gynecology following, Dr. Uriarte on consult as well as Dr. Ng. Status post I&D yesterday. Follow-up culture 3. Migraine Recommend continue with Tylenol. Discussed with patient and nursing to avoid narcotics for her headache. Treatment may be some analgesic rebound associated with morphine. We will reevaluate see if patient's headache response with the Tylenol. Could utilize other agents such as Phenergan for the headaches. 4. Coronary artery disease Patient states her last stent was in May 2016. Patient is on aspirin, metoprolol, lisinopril. Plavix on hold from the surgery. Patient has completed her year long treatment with Plavix so certainly appropriate old at this time. 5. DVT prophylaxis on Lovenox. Patient declining SCDs. 6. Constipation: We will add senna. Code Visit Inpatient E&M: 35649 Subs Hosp L2
--- NOTE | 2017-06-17 11:53 | CASEMGMT ---
Addendum entered by Noam Mondragon 06/17/17 13:01: Per Dr. Uriarte, pt is not willing to consider SNF and plan is home with [facility]. (RN POONAM called and was declined by [facility] [place];[facility]; [facility]). Call, message left with [facility] [place]. -Call back received from [facility]. They are able to accept pt with start of care on Tuesday. Referral packet faxed to them including H/P, wound nurse notes, script for IV antibiotics. ph: fax: -[facility] referral faxed. -Intro role of CM to patient in room. Explained plan of care for dc Tuesday. Need to coordinate dc with [facility] delivery and Nursing start of care. Pt is agreeable. LAWANDA LEVIN Also discussed option for SNF is over weekend pt changes her mind. Pt presently is adamantly against SNF. Original Note: Initial dc plan was for home with home health. Dr. Uriarte is highly recommending Group Home facility for pt for 2 weeks to receive IV antibiotics and wound care. Pt has not been agreeable, but Dr. Uriarte is here to speak with pt. Skilled list printed to give to pt if she agrees to SNF. Julio BECKETTN RN ACM
--- NOTE | 2017-06-17 12:06 | NURSING ---
DR MÉNDEZ IN. EXTENSIVE EDUCATION ON RISKS/RAMIFICATIONS/COMPLICATIONS/HEALTH PROMOTION/DM CONTROL/WOUND CARE TO PT. PT STATES THAT SHE JUST RECIEVED CUSTODY OF HER DAUGHTER AND THAT IS WHY SHE IS ADAMENT ABOUT GOING HOME.
[2017-06-17 12:11] LABS: Bedside Glucose 354 mg/dL (70-110)
--- NOTE | 2017-06-17 12:46 | PCM.PN.ID ---
Patient Problems: Active and Suspected Problems Abscess of left groin (Acute) Necrotizing soft tissue infection (Acute) necrotizing MRSA abscess soft tissue infection right lower abdominal wall Type 2 diabetes mellitus with other skin ulcer (Acute) Abdominal wall abscess (Acute) MRSA (methicillin resistant Staphylococcus aureus) (Acute) Vulvar cellulitis (Acute) Pelvic wall abscess and ulcer (Acute) Subjective: Feeling ok s/p OR. No fever, no n/v/d on iv abx. - Physical Exam General: Alert, Cooperative Lungs: Clear to auscultation, Normal air movement Cardiovascular: Regular rate, Regular Rhythm Abdomen: Soft, Non-Distended, - - surg dressing in place with wound vac Extremities: No edema Vital Signs Temp Pulse Resp BP Pulse Ox 96.0 F L 73 18 134/77 H 93 06/17/17 09:29 06/17/17 09:35 06/17/17 09:29 06/17/17 09:29 06/17/17 09:29 Oxygen Flow Rate 2 Oxygen Delivery Method Room Air Weight: 99.11 kg Body Mass Index (BMI) 39.9 Finger Stick Blood Glucose 286 Intake and Output for Last 24 Hours 06/15/17 06/16/17 06/17/17 23:59 23:59 23:59 Intake Total 2456 / 2456 4524 / 4524 1690 / 1690 Output Total 600 / 600 2375 / 2375 750 / 750 Balance 1856 / 1856 2149 / 2149 940 / 940 Microbiology Past 72 Hours 06/16/17 16:41 Gram Stain - Final Tissue - Groin Wound Culture - Preliminary No growth-Final to follow 06/16/17 16:41 Gram Stain - Final Tissue - Abdominal Wound Culture - Preliminary Staphylococcus aureus 06/15/17 23:00 Urine Culture - Preliminary Urine, Clean Catch Mixed Gram Positive Organisms Laboratory Tests Past 24 Hrs 06/17/17 06/17/17 06:54 06:54 WBC 12.3 H RBC 3.95 L Hgb 12.4 Hct 37.2 MCV 94.2 MCH 31.4 MCHC 33.3 RDW 12.4 RDW Differential 42.4 Plt Count 263 MPV 10.9 Immature Gran % (Auto) 0.600 Neut % (Auto) 78.6 H Lymph % (Auto) 15.0 L [place] % (Auto) 5.7 Eos % (Auto) 0.0 Baso % (Auto) 0.1 Absolute Neuts (auto) 9.6 H Absolute Lymphs (auto) 1.84 Total Counted Not Reportable Sodium 135 L Potassium 3.8 Chloride 104 Carbon Dioxide 24.0 Anion Gap 7 BUN 9 Creatinine 0.53 L Estim Creat Clear Calc 109.36 Est GFR (MDRD) Af Amer 164 Est GFR (MDRD) Non-Af 135 BUN/Creatinine Ratio 17.1 Glucose 239 H Calcium 8.1 L POC Glucose 06/17/17 06/17/17 06/16/17 11:52 06:20 22:01 POC Glucose 354 H 225 H 268 H 06/16/17 06/16/17 06/16/17 18:15 16:55 12:37 POC Glucose 317 H 286 H 263 H Route of nutrition/ use of supplements: [] Nutritional Intake: [] IV Site: [] Nicholson Catheter: [] - Assessment/Plan Antibiotics: [] Assessment/Plan: [] Active and Suspected Problems Necrotizing soft tissue infection (Acute) necrotizing MRSA abscess soft tissue infection right lower abdominal wall Type 2 diabetes mellitus with other skin ulcer (Acute) Abdominal wall abscess (Acute) MRSA (methicillin resistant Staphylococcus aureus) (Acute) Vulvar cellulitis (Acute) Pelvic wall abscess and ulcer (Acute) PCR (+) for MRSA. OR 06/16 for debridement, cxs with staph aureus. Narrow to vanc/clinda/cefazolin. will follow.
--- NOTE | 2017-06-17 13:29 | PCM.PN.SRG ---
Patient Problems: Active and Suspected Problems Abscess of left groin (Acute) Necrotizing soft tissue infection (Acute) necrotizing MRSA abscess soft tissue infection right lower abdominal wall Type 2 diabetes mellitus with other skin ulcer (Acute) Abdominal wall abscess (Acute) MRSA (methicillin resistant Staphylococcus aureus) (Acute) Vulvar cellulitis (Acute) Pelvic wall abscess and ulcer (Acute) Subjective: Postop #1 Patient complains of wound pain. Had VAC applied to the abdominal wall wound. Applied Silver dressing to left groin wound. - Physical Exam General: Alert, Oriented x3 HEENT: PERRLA, EOMI Neck: Supple Lungs: Clear to auscultation Cardiovascular: Regular rate, Regular Rhythm Skin: Ulcer/ Wound - abdominal wall wound and left inguinal and perineal wound are stable. No bleeding seen. VAC was applied to the abdominal wall wound. It was difficult to maintain a seal for the left inguinal and perineal wound. So the VAC was not placed there and Silver dressing changes were started there. Neurological: Cranial nerves II-XII grossly intact Psych/Mental Status: Normal Affect, Appropriate Vital Signs Temp Pulse Resp BP Pulse Ox 96.0 F L 73 18 134/77 H 93 06/17/17 09:29 06/17/17 09:35 06/17/17 09:29 06/17/17 09:29 06/17/17 09:29 Oxygen Flow Rate 2 Oxygen Delivery Method Room Air Weight: 218 lb 8.002 oz Body Mass Index (BMI) 39.9 Finger Stick Blood Glucose 286 Intake and Output for Last 24 Hours 06/15/17 06/16/17 06/17/17 23:59 23:59 23:59 Intake Total 2456 / 2456 4524 / 4524 1690 / 1690 Output Total 600 / 600 2375 / 2375 750 / 750 Balance 1856 / 1856 2149 / 2149 940 / 940 Microbiology Past 72 Hours 06/16/17 16:41 Gram Stain - Final Tissue - Groin Wound Culture - Preliminary No growth-Final to follow 06/16/17 16:41 Gram Stain - Final Tissue - Abdominal Wound Culture - Preliminary Staphylococcus aureus 06/15/17 23:00 Urine Culture - Preliminary Urine, Clean Catch Mixed Gram Positive Organisms Laboratory Tests Past 24 Hrs 06/17/17 06/17/17 06:54 06:54 WBC 12.3 H RBC 3.95 L Hgb 12.4 Hct 37.2 MCV 94.2 MCH 31.4 MCHC 33.3 RDW 12.4 RDW Differential 42.4 Plt Count 263 MPV 10.9 Immature Gran % (Auto) 0.600 Neut % (Auto) 78.6 H Lymph % (Auto) 15.0 L [place] % (Auto) 5.7 Eos % (Auto) 0.0 Baso % (Auto) 0.1 Absolute Neuts (auto) 9.6 H Absolute Lymphs (auto) 1.84 Total Counted Not Reportable Sodium 135 L Potassium 3.8 Chloride 104 Carbon Dioxide 24.0 Anion Gap 7 BUN 9 Creatinine 0.53 L Estim Creat Clear Calc 109.36 Est GFR (MDRD) Af Amer 164 Est GFR (MDRD) Non-Af 135 BUN/Creatinine Ratio 17.1 Glucose 239 H Calcium 8.1 L POC Glucose 06/17/17 06/17/17 06/16/17 11:52 06:20 22:01 POC Glucose 354 H 225 H 268 H 06/16/17 06/16/17 18:15 16:55 POC Glucose 317 H 286 H Assessment/Plan Active and Suspected Problems Abscess of left groin (Acute) Necrotizing soft tissue infection (Acute) necrotizing MRSA abscess soft tissue infection right lower abdominal wall Type 2 diabetes mellitus with other skin ulcer (Acute) Abdominal wall abscess (Acute) MRSA (methicillin resistant Staphylococcus aureus) (Acute) Vulvar cellulitis (Acute) Pelvic wall abscess and ulcer (Acute) 1. 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 2. Necrotizing MRSA diabetic abscess left inguinal and perineal area. 3. Abdominal wall panniculus with panniculitis. 4. Diabetes mellitus. 5. MRSA. 6. Smoker. 7. Obesity. Abdominal wall wound and left inguinal and perineal wound are stable. No bleeding seen. VAC was applied to the abdominal wall. It was difficult to maintain a seal in the left inguinal and perineal wound so the VAC was not placed there and wound care was started with Silver dressing changes daily. Also it was noted the patient was not interested in the VAC anyway in the left inguinal and perineal area and would have refused placement there. Tried to have a discussion with the patient about the seriousness of this infection and the complexity of the wound care and need for IV antibiotics. I think she would benefit from a short stay at a facility, whether it is TCU or an LTAC. Once the IV antibiotics are completed and once the wound care has stabilized, it would be safer then for the patient to return home. Estimated time involved would be 2-4 weeks. The patient became very defensive and adamantly refused any discharge to a facility and that she was going home no matter what. I don't know how much she truly understands about the seriousness of her current situation. Even though the surgery was successful and there is no further evidence of infection, she is still at risk for worsening of the infection that may necessitate additional urgent surgery. Because of the necrotizing nature of this infection in a poorly controlled diabetic, I stressed to the patient that suboptimal care of these wounds at home may lead to worsening of the infection, possible amputation, and possible . She is aware of these risks and insists on going home. She states she has a friend who can help her with the complex wound care. After further discussion, I think part of her reluctance to go to a facility temporarily is a personal one. She stated she just obtained custody of her daughter and is afraid that going to a facility would jeopardize her custody of her daughter. So at the present time, we are working on home antibiotics (most likely with Vancomycin) and getting Home Health to assist with wound care. Because the VAC will only be on the abdominal wall, the inguinal wound will need daily dressing changes and possibly even twice a day. Home Health may not be able to go to her home on a daily basis. She states her friend would be able to do the additional dressing changes. Also I discussed with the patient the need to go home with the valdivia catheter. Once the wound care is stabilized at home, can remove the valdivia at that time. (tentatively about a couple of weeks). She is aware of the necessity of the home valdivia catheter. Her Prealbumin was low at 12.0. Encourage nutritional supplementation with protein to help the healing process. After discharge, [facility]. She also states she will have closer followup with her PCP to maintain better control of her diabetes. Encouraged the patient to stop smoking as it may have deleterious effects on wound healing.
--- NOTE | 2017-06-17 14:16 | PCM.PN.OB ---
Patient Problems: Active and Suspected Problems Abscess of left groin (Acute) Necrotizing soft tissue infection (Acute) necrotizing MRSA abscess soft tissue infection right lower abdominal wall Type 2 diabetes mellitus with other skin ulcer (Acute) Abdominal wall abscess (Acute) MRSA (methicillin resistant Staphylococcus aureus) (Acute) Vulvar cellulitis (Acute) Pelvic wall abscess and ulcer (Acute) Subjective: Patient feels sore - Physical Exam General: Alert, Oriented x3 Comment: Wound vac on abdominal wound; vulvar/groin wound - pink tissue, packing Vital Signs Temp Pulse Resp BP Pulse Ox 96.0 F L 73 18 134/77 H 93 06/17/17 09:29 06/17/17 09:35 06/17/17 09:29 06/17/17 09:29 06/17/17 09:29 Oxygen Flow Rate 2 Oxygen Delivery Method Room Air Weight: 218 lb 8.002 oz Body Mass Index (BMI) 39.9 Finger Stick Blood Glucose 286 Intake and Output for Last 24 Hours 06/15/17 06/16/17 06/17/17 23:59 23:59 23:59 Intake Total 2456 / 2456 4524 / 4524 1690 / 1690 Output Total 600 / 600 2375 / 2375 750 / 750 Balance 1856 / 1856 2149 / 2149 940 / 940 Microbiology Past 72 Hours 06/16/17 16:41 Gram Stain - Final Tissue - Groin Wound Culture - Preliminary No growth-Final to follow 06/16/17 16:41 Gram Stain - Final Tissue - Abdominal Wound Culture - Preliminary Staphylococcus aureus 06/15/17 23:00 Urine Culture - Preliminary Urine, Clean Catch Mixed Gram Positive Organisms Laboratory Tests Past 24 Hrs 06/17/17 06/17/17 06:54 06:54 WBC 12.3 H RBC 3.95 L Hgb 12.4 Hct 37.2 MCV 94.2 MCH 31.4 MCHC 33.3 RDW 12.4 RDW Differential 42.4 Plt Count 263 MPV 10.9 Immature Gran % (Auto) 0.600 Neut % (Auto) 78.6 H Lymph % (Auto) 15.0 L [place] % (Auto) 5.7 Eos % (Auto) 0.0 Baso % (Auto) 0.1 Absolute Neuts (auto) 9.6 H Absolute Lymphs (auto) 1.84 Total Counted Not Reportable Sodium 135 L Potassium 3.8 Chloride 104 Carbon Dioxide 24.0 Anion Gap 7 BUN 9 Creatinine 0.53 L Estim Creat Clear Calc 109.36 Est GFR (MDRD) Af Amer 164 Est GFR (MDRD) Non-Af 135 BUN/Creatinine Ratio 17.1 Glucose 239 H Calcium 8.1 L POC Glucose 06/17/17 06/17/17 06/16/17 11:52 06:20 22:01 POC Glucose 354 H 225 H 268 H 06/16/17 06/16/17 18:15 16:55 POC Glucose 317 H 286 H Assessment/Plan Active and Suspected Problems Abscess of left groin (Acute) Necrotizing soft tissue infection (Acute) necrotizing MRSA abscess soft tissue infection right lower abdominal wall Type 2 diabetes mellitus with other skin ulcer (Acute) Abdominal wall abscess (Acute) MRSA (methicillin resistant Staphylococcus aureus) (Acute) Vulvar cellulitis (Acute) Pelvic wall abscess and ulcer (Acute) Patient now on medicine service Continue would care & antibiotics for MRSA Dam Tender Assistant is signing off but will provide further assistance if requested
--- NOTE | 2017-06-17 14:21 | CASEMGMT ---
Attempted call to [facility] to verify referral but phone lines are down on their side due to weather. Julio WEBBER BSN ACM
--- NOTE | 2017-06-17 14:56 | NURSING ---
This RN attempted to notify [facility] wound RN that patient's dressing to groin is coming off and was in to see patient at this time- requested for a different dressing. This RN unable to call [facility]- will notify LAWANDA Perez
[2017-06-17 15:13] VITALS: BP 107/60; PULSE 79; RESP 18; TEMP 35.6; O2SAT 94
[2017-06-17] MEDS: Cefazolin 2 GM in Syringe IV ×2 (15:14→22:47)
[2017-06-17] MEDS: diazePAM 5 MG Tablet PO ×2 (15:14→21:35)
[2017-06-17] MEDS: 0.9% Normal Saline 1,000 ML 75 ML IV (17:10)
[2017-06-17 17:21] LABS: Bedside Glucose 332 mg/dL (70-110)
[2017-06-17 20:30] VITALS: BP 119/74; PULSE 81; RESP 16; TEMP 36.8; O2SAT 95
[2017-06-17 21:35] VITALS: PULSE 91
[2017-06-17] MEDS: Senna Tablet 1 TABLET PO (21:35)
[2017-06-17] MEDS: Atorvastatin Calcium 80 MG Tablet PO (21:36)
[2017-06-17] MEDS: Nystatin Powder 15gm Bottle 1 APPLIC TOPICAL (21:37)
[2017-06-17 21:56] LABS: Bedside Glucose 349 mg/dL (70-110)
--- NOTE | 2017-06-17 23:12 | CPS ---
Pt refuses CPAP at this time.
--- NOTE | 2017-06-18 02:25 | NURSING ---
Resting with eyes closed, no distress noted, will check VS when more awake.
[2017-06-18 05:05] VITALS: BP 123/87; PULSE 76; RESP 16; TEMP 36.9; O2SAT 94
[2017-06-18] MEDS: Enoxaparin 40 MG/0.4 ML Syringe SC (05:09)
[2017-06-18] MEDS: Cefazolin 2 GM in Syringe IV ×3 (05:10→23:29)
[2017-06-18] MEDS: Clindamycin 600 MG/50 ML BAG 100 MG IV ×3 (05:10→23:30)
[2017-06-18] MEDS: diazePAM 5 MG Tablet PO ×3 (05:10→23:34)
[2017-06-18 10:00] VITALS: BP 115/71; PULSE 73; RESP 16; TEMP 36.4; O2SAT 97
[2017-06-18] MEDS: 0.9% Normal Saline 1,000 ML 75 ML IV (10:00)
[2017-06-18] MEDS: Glucerna Shake 120 ML LIQUID PO ×3 (10:11→17:21)
[2017-06-18 10:14] VITALS: PULSE 73
[2017-06-18 10:14] LABS: Vancomycin, Trough Level 10.1 ug/mL (5.0-15.0)
[2017-06-18] MEDS: Aspirin E.C. 81 MG Tablet PO (10:14)
[2017-06-18] MEDS: Lisinopril 10 MG Tablet PO (10:14)
[2017-06-18] MEDS: Acetaminophen 325 MG Tablet 650 MG PO ×2 (10:14→23:35)
[2017-06-18] MEDS: amLODIPine 5 MG Tablet PO (10:14)
[2017-06-18] MEDS: Metoprolol Tartrate 50 MG Tablet PO ×2 (10:14→23:33)
[2017-06-18] MEDS: FLUoxetine 20 MG Capsule PO (10:15)
[2017-06-18] MEDS: Senna Tablet 1 TABLET PO ×2 (10:15→23:34)
[2017-06-18 10:31] LABS: Bedside Glucose 158 mg/dL (70-110)
--- NOTE | 2017-06-18 12:38 | PCM.PN.HOSP ---
Patient Problems: Active and Suspected Problems Abscess of left groin (Acute) Necrotizing soft tissue infection (Acute) necrotizing MRSA abscess soft tissue infection right lower abdominal wall Type 2 diabetes mellitus with other skin ulcer (Acute) Abdominal wall abscess (Acute) MRSA (methicillin resistant Staphylococcus aureus) (Acute) Vulvar cellulitis (Acute) Pelvic wall abscess and ulcer (Acute) Subjective: Patient with pain with dressing changes which she is currently having at this time. Patient complains of pain at wound VAC. Vitals/I&O's: Vital Signs Temp Pulse Resp BP Pulse Ox 36.4 C L 73 16 115/71 97 06/18/17 10:00 06/18/17 10:14 06/18/17 10:00 06/18/17 10:00 06/18/17 10:00 Oxygen Flow Rate 2 Oxygen Delivery Method Room Air Weight: 99.11 kg Body Mass Index (BMI) 39.9 Finger Stick Blood Glucose 286 Intake and Output for Last 24 Hours 06/16/17 06/17/17 06/18/17 23:59 23:59 23:59 Intake Total 4524 / 4524 3836 / 3836 700 / 700 Output Total 2375 / 2375 1825 / 1825 650 / 650 Balance 2149 / 2149 2010 50 / 50 General: Alert, Cooperative, No apparent distress HEENT: Atraumatic, Normocephalic Neck: No Nodes, Thyroid Normal Size and Texture Lungs: Clear to auscultation, Normal air movement, No rhonchi, No wheeze Cardiovascular: Regular rate, Regular Rhythm, Normal S1, Normal S2 Abdomen: Bowel Sounds Present, Soft, Non Tender, Non-Distended, - - Abdominal wound VAC in place. Extremities: No edema, No Calf Tenderness Skin: - - Left inguinal incision open and currently being cleaned at this time. No purulence expressed no surrounding erythema. Psych/Mental Status: Normal Affect, Appropriate Microbiology Past 72 Hours 06/16/17 16:41 Tissue - Groin Gram Stain - Final 06/16/17 16:41 Tissue - Groin Wound Culture - Preliminary Gram positive organism Alpha hemolytic organism 06/16/17 16:41 Tissue - Abdominal Gram Stain - Final 06/16/17 16:41 Tissue - Abdominal Wound Culture - Preliminary Staphylococcus aureus 06/15/17 21:25 Blood Culture (Wb) - Right Hand Blood Culture - Preliminary No growth in 48 hours. 06/15/17 21:15 Blood Culture (Wb) - Arm Right Blood Culture - Preliminary No growth in 48 hours. 06/15/17 23:00 Urine, Clean Catch Urine Culture - Final Mixed Gram Positive Organisms Laboratory Results 06/17/17 17:07: POC Glucose 332 H 06/17/17 21:32: POC Glucose 349 H 06/18/17 09:30: Vancomycin Trough 10.1 06/18/17 10:10: POC Glucose 158 H Current Medications Acetaminophen (Tylenol) 650 mg PO Q4H PRN PRN PRN Reason: Mild pain/fever Last Admin: 06/18/17 10:14 Dose: 650 mg Amlodipine Besylate (Norvasc) 5 mg PO DAILY [facility] Last Admin: 06/18/17 10:14 Dose: 5 mg Aspirin (Ecotrin) 81 mg PO DAILY@0800 [facility] Last Admin: 06/18/17 10:14 Dose: 81 mg Atorvastatin Calcium (Lipitor) 80 mg PO QHS [facility] Last Admin: 06/17/17 21:36 Dose: 80 mg Dextrose (D50w Syringe) 0 gm IV X1 PRN; Protocol PRN Reason: Hypoglycemia Diazepam (Valium) 5 mg PO 4X/DAY PRN PRN PRN Reason: SPASMS Last Admin: 06/18/17 05:10 Dose: 5 mg Enoxaparin Sodium (Lovenox) 40 mg SC DAILY@0600 [facility] Last Admin: 06/18/17 05:09 Dose: 40 mg Fluoxetine HCl (Prozac) 20 mg PO DAILY [facility] Last Admin: 06/18/17 10:15 Dose: 20 mg Glucagon () 1 mg IM .X1 PRN PRN Reason: Hypoglycemia Glucagon () 1 mg IM .X1 PRN PRN Reason: Hypoglycemia Sodium Chloride () 1,000 mls @ 75 mls/hr IV .[id number] [facility] Last Admin: 06/18/17 10:00 Dose: 75 mls/hr Clindamycin Phosphate (Cleocin) 600 mg in 50 mls @ 100 mls/hr IV Q8 [facility] Last Admin: 06/18/17 05:10 Dose: 100 mls/hr Vancomycin HCl (Vancomycin) 1,000 mg in 200 mls @ 200 mls/hr IV Q8H [facility] Last Admin: 06/18/17 10:01 Dose: 200 mls/hr Cefazolin Sodium 2 gm/ N/A 20 mls @ 400 mls/hr IV Q8 [facility] Last Admin: 06/18/17 05:10 Dose: 400 mls/hr Insulin Aspart (Novolog Flexpen (Bkc)) 0 units SC ACHS [facility] PRN Reason: Protocol Last Admin: 06/18/17 10:12 Dose: 2 units Insulin Aspart (Novolog Flexpen (Bkc)) 8 units SC TIDAC [facility] Insulin Detemir (Levemir (Bkc)) 30 units SC QHS [facility] Ipratropium [place] (Atrovent) 0.5 mg INHALATION Q6HWA.RT [facility] Last Admin: 06/18/17 07:00 Dose: Not Given Lisinopril (Zestril) 10 mg PO DAILY [facility] Last Admin: 06/18/17 10:14 Dose: 10 mg Metoprolol Tartrate (Lopressor (Beta Familia)) 50 mg PO BID [facility] Last Admin: 06/18/17 10:14 Dose: 50 mg Morphine Sulfate (Morphine) 2 - 4 mg IV Q3H PRN PRN PRN Reason: SEVERE PAIN (6-10/10) Last Admin: 06/17/17 08:52 Dose: 4 mg Morphine Sulfate (Morphine) 2 - 4 mg IV Q3H PRN PRN PRN Reason: SEVERE PAIN (6-10/10) Last Admin: 06/18/17 12:06 Dose: 2 mg Nicotine (Nicoderm Cq (Pbkc)) 21 mg TRANSDERM. DAILY [facility] Last Admin: 06/18/17 10:14 Dose: 21 mg Nutritional Formula (Hans - Lucas Flavor) 1 packet PO BIDCM [facility] Last Admin: 06/18/17 10:15 Dose: 1 packet Nutritional Formula (Lactose Free) (Glucerna Shake) 120 ml PO TIDCM [facility] Last Admin: 06/18/17 10:11 Dose: 120 ml Nystatin (Mycostatin Powder) 1 applic TOPICAL TID [facility] PRN Reason: Protocol Last Admin: 06/18/17 05:11 Dose: Not Given Senna (Senokot) 1 tablet PO BID [facility] Last Admin: 06/18/17 10:15 Dose: 1 tablet Sodium Chloride () 5 - 30 ml IV UD PRN PRN Reason: SALINE FLUSH Last Admin: 06/17/17 20:22 Dose: 10 ml Assessment/Plan Active and Suspected Problems Abscess of left groin (Acute) Necrotizing soft tissue infection (Acute) necrotizing MRSA abscess soft tissue infection right lower abdominal wall Type 2 diabetes mellitus with other skin ulcer (Acute) Abdominal wall abscess (Acute) MRSA (methicillin resistant Staphylococcus aureus) (Acute) Vulvar cellulitis (Acute) Pelvic wall abscess and ulcer (Acute) 1. Diabetes mellitus type 2, uncontrolled Blood sugars still uncontrolled, we will increase Levemir to 30 and prandial insulin to 18 with meals. 2. Abdominal wall abscess: On vancomycin, cefazolin and vancomycin. Gynecology signed off. Being followed by Dr. Uriarte and infectious disease.. 3. Migraine Recommend continue with Tylenol. Discussed with patient and nursing to avoid narcotics for her headache. Treatment may be some analgesic rebound associated with morphine. We will reevaluate see if patient's headache response with the Tylenol. Could utilize other agents such as Phenergan for the headaches. 4. Coronary artery disease Patient states her last stent was in May 2016. Patient is on aspirin, metoprolol, lisinopril. Plavix on hold from the surgery. Patient has completed her year long treatment with Plavix so certainly appropriate old at this time. 5. DVT prophylaxis on Lovenox. Patient declining SCDs. 6. Constipation: Senna 7. Disposition: Plan is for home with home care. Is been the recommendation of Dr. Uriarte that the patient go to a [facility] facility for proper wound care as it is concerned that the patient will not get the ideal wound care at home and that her wound may be further compromised at home. Patient has expressed understanding but insists on going home. Apparently the patient has just regained custody of her child and wants to be home with the child. Gynecology has signed off and transferred the patient to my service. They stated that I was the attending physician. There is never any discussion with me Dr. Torres stated that try attempted to page me, even though I been available through [facility] all week and through the [employer] phone numbers well. Never spoke with them until I found out by reading Dr. Torres's note that they were signing off and was under our service. Code Visit Inpatient E&M: 06234 Subs Hosp L2
--- NOTE | 2017-06-18 12:44 | PN_ITS ---
Patient Problems: Active and Suspected Problems Abscess of left groin (Acute) Necrotizing soft tissue infection (Acute) necrotizing MRSA abscess soft tissue infection right lower abdominal wall Type 2 diabetes mellitus with other skin ulcer (Acute) Abdominal wall abscess (Acute) MRSA (methicillin resistant Staphylococcus aureus) (Acute) Vulvar cellulitis (Acute) Pelvic wall abscess and ulcer (Acute) Subjective: Patient with pain with dressing changes which she is currently having at this time. Patient complains of pain at wound VAC. Vitals/I&O's: Vital Signs Temp Pulse Resp BP Pulse Ox 36.4 C L 73 16 115/71 97 06/18/17 10:00 06/18/17 10:14 06/18/17 10:00 06/18/17 10:00 06/18/17 10:00 Oxygen Flow Rate 2 Oxygen Delivery Method Room Air Weight: 99.11 kg Body Mass Index (BMI) 39.9 Finger Stick Blood Glucose 286 Intake and Output for Last 24 Hours 06/16/17 06/17/17 06/18/17 23:59 23:59 23:59 Intake Total 4524 / 4524 3836 / 3836 700 / 700 Output Total 2375 / 2375 1825 / 1825 650 / 650 Balance 2149 / 2149 2010 50 / 50 General: Alert, Cooperative, No apparent distress HEENT: Atraumatic, Normocephalic Neck: No Nodes, Thyroid Normal Size and Texture Lungs: Clear to auscultation, Normal air movement, No rhonchi, No wheeze Cardiovascular: Regular rate, Regular Rhythm, Normal S1, Normal S2 Abdomen: Bowel Sounds Present, Soft, Non Tender, Non-Distended, - - Abdominal wound VAC in place. Extremities: No edema, No Calf Tenderness Skin: - - Left inguinal incision open and currently being cleaned at this time. No purulence expressed no surrounding erythema. Psych/Mental Status: Normal Affect, Appropriate Microbiology Past 72 Hours 06/16/17 16:41 Tissue - Groin Gram Stain - Final 06/16/17 16:41 Tissue - Groin Wound Culture - Preliminary Gram positive organism Alpha hemolytic organism 06/16/17 16:41 Tissue - Abdominal Gram Stain - Final 06/16/17 16:41 Tissue - Abdominal Wound Culture - Preliminary Staphylococcus aureus 06/15/17 21:25 Blood Culture (Wb) - Right Hand Blood Culture - Preliminary No growth in 48 hours. 06/15/17 21:15 Blood Culture (Wb) - Arm Right Blood Culture - Preliminary No growth in 48 hours. 06/15/17 23:00 Urine, Clean Catch Urine Culture - Final Mixed Gram Positive Organisms Laboratory Results 06/17/17 17:07: POC Glucose 332 H 06/17/17 21:32: POC Glucose 349 H 06/18/17 09:30: Vancomycin Trough 10.1 06/18/17 10:10: POC Glucose 158 H Current Medications Acetaminophen (Tylenol) 650 mg PO Q4H PRN PRN PRN Reason: Mild pain/fever Last Admin: 06/18/17 10:14 Dose: 650 mg Amlodipine Besylate (Norvasc) 5 mg PO DAILY [facility] Last Admin: 06/18/17 10:14 Dose: 5 mg Aspirin (Ecotrin) 81 mg PO DAILY@0800 [facility] Last Admin: 06/18/17 10:14 Dose: 81 mg Atorvastatin Calcium (Lipitor) 80 mg PO QHS [facility] Last Admin: 06/17/17 21:36 Dose: 80 mg Dextrose (D50w Syringe) 0 gm IV X1 PRN; Protocol PRN Reason: Hypoglycemia Diazepam (Valium) 5 mg PO 4X/DAY PRN PRN PRN Reason: SPASMS Last Admin: 06/18/17 05:10 Dose: 5 mg Enoxaparin Sodium (Lovenox) 40 mg SC DAILY@0600 [facility] Last Admin: 06/18/17 05:09 Dose: 40 mg Fluoxetine HCl (Prozac) 20 mg PO DAILY [facility] Last Admin: 06/18/17 10:15 Dose: 20 mg Glucagon () 1 mg IM .X1 PRN PRN Reason: Hypoglycemia Glucagon () 1 mg IM .X1 PRN PRN Reason: Hypoglycemia Sodium Chloride () 1,000 mls @ 75 mls/hr IV .[id number] [facility] Last Admin: 06/18/17 10:00 Dose: 75 mls/hr Clindamycin Phosphate (Cleocin) 600 mg in 50 mls @ 100 mls/hr IV Q8 [facility] Last Admin: 06/18/17 05:10 Dose: 100 mls/hr Vancomycin HCl (Vancomycin) 1,000 mg in 200 mls @ 200 mls/hr IV Q8H [facility] Last Admin: 06/18/17 10:01 Dose: 200 mls/hr Cefazolin Sodium 2 gm/ N/A 20 mls @ 400 mls/hr IV Q8 [facility] Last Admin: 06/18/17 05:10 Dose: 400 mls/hr Insulin Aspart (Novolog Flexpen (Bkc)) 0 units SC ACHS [facility] PRN Reason: Protocol Last Admin: 06/18/17 10:12 Dose: 2 units Insulin Aspart (Novolog Flexpen (Bkc)) 8 units SC TIDAC [facility] Insulin Detemir (Levemir (Bkc)) 30 units SC QHS [facility] Ipratropium [place] (Atrovent) 0.5 mg INHALATION Q6HWA.RT [facility] Last Admin: 06/18/17 07:00 Dose: Not Given Lisinopril (Zestril) 10 mg PO DAILY [facility] Last Admin: 06/18/17 10:14 Dose: 10 mg Metoprolol Tartrate (Lopressor (Beta Familia)) 50 mg PO BID [facility] Last Admin: 06/18/17 10:14 Dose: 50 mg Morphine Sulfate (Morphine) 2 - 4 mg IV Q3H PRN PRN PRN Reason: SEVERE PAIN (6-10/10) Last Admin: 06/17/17 08:52 Dose: 4 mg Morphine Sulfate (Morphine) 2 - 4 mg IV Q3H PRN PRN PRN Reason: SEVERE PAIN (6-10/10) Last Admin: 06/18/17 12:06 Dose: 2 mg Nicotine (Nicoderm Cq (Pbkc)) 21 mg TRANSDERM. DAILY [facility] Last Admin: 06/18/17 10:14 Dose: 21 mg Nutritional Formula (Hans - [place] Flavor) 1 packet PO BIDCM [facility] Last Admin: 06/18/17 10:15 Dose: 1 packet Nutritional Formula (Lactose Free) (Glucerna Shake) 120 ml PO TIDCM [facility] Last Admin: 06/18/17 10:11 Dose: 120 ml Nystatin (Mycostatin Powder) 1 applic TOPICAL TID [facility] PRN Reason: Protocol Last Admin: 06/18/17 05:11 Dose: Not Given Senna (Senokot) 1 tablet PO BID [facility] Last Admin: 06/18/17 10:15 Dose: 1 tablet Sodium Chloride () 5 - 30 ml IV UD PRN PRN Reason: SALINE FLUSH Last Admin: 06/17/17 20:22 Dose: 10 ml Assessment/Plan Active and Suspected Problems Abscess of left groin (Acute) Necrotizing soft tissue infection (Acute) necrotizing MRSA abscess soft tissue infection right lower abdominal wall Type 2 diabetes mellitus with other skin ulcer (Acute) Abdominal wall abscess (Acute) MRSA (methicillin resistant Staphylococcus aureus) (Acute) Vulvar cellulitis (Acute) Pelvic wall abscess and ulcer (Acute) 1. Diabetes mellitus type 2, uncontrolled Blood sugars still uncontrolled, we will increase Levemir to 30 and prandial insulin to 18 with meals. 2. Abdominal wall abscess: On vancomycin, cefazolin and vancomycin. Gynecology signed off. Being followed by Dr. Uriarte and infectious disease.. 3. Migraine Recommend continue with Tylenol. Discussed with patient and nursing to avoid narcotics for her headache. Treatment may be some analgesic rebound associated with morphine. We will reevaluate see if patient's headache response with the Tylenol. Could utilize other agents such as Phenergan for the headaches. 4. Coronary artery disease Patient states her last stent was in May 2016. Patient is on aspirin, metoprolol, lisinopril. Plavix on hold from the surgery. Patient has completed her year long treatment with Plavix so certainly appropriate old at this time. 5. DVT prophylaxis on Lovenox. Patient declining SCDs. 6. Constipation: Senna 7. Disposition: Plan is for home with home care. Is been the recommendation of Dr. Uriarte that the patient go to a [facility] facility for proper wound care as it is concerned that the patient will not get the ideal wound care at home and that her wound may be further compromised at home. Patient has expressed understanding but insists on going home. Apparently the patient has just regained custody of her child and wants to be home with the child. Gynecology has signed off and transferred the patient to my service. They stated that I was the attending physician. There is never any discussion with me Dr. Torres stated that try attempted to page me, even though I been available through [employer] all week and through the [employer] phone numbers well. Never spoke with them until I found out by reading Dr. Torres's note that they were signing off and was under our service. Code Visit Inpatient E&M: 15217 Subs Hosp L2
[2017-06-18 13:31] LABS: Bedside Glucose 306 mg/dL (70-110)
--- NOTE | 2017-06-18 13:46 | PN.SURG_ITS ---
Patient Problems: Active and Suspected Problems MRSA (methicillin resistant Staphylococcus aureus) (Acute) Vulvar cellulitis (Acute) Pelvic wall abscess and ulcer (Acute) Subjective: Postop #2 Still complains of wound pain and spasm from the VAC. The Valium has been helpful. - Physical Exam General: Alert, Oriented x3 HEENT: PERRLA, EOMI Oral: Moist Mucosa Neck: Supple Lungs: Clear to auscultation Cardiovascular: Regular rate, Regular Rhythm Skin: Ulcer/ Wound - abdominal wall wound and left groin wound are stable. No bleeding. No further evidence of infection. Some tenderness during the dressing change. VAC in place abdominal wall. Daily Silver dressing changes to left groin. Neurological: Cranial nerves II-XII grossly intact Psych/Mental Status: Normal Affect, Appropriate Vital Signs Temp Pulse Resp BP Pulse Ox 97.5 F L 73 16 115/71 97 06/18/17 10:00 06/18/17 10:14 06/18/17 10:00 06/18/17 10:00 06/18/17 10:00 Oxygen Flow Rate 2 Oxygen Delivery Method Room Air Weight: 218 lb 8.002 oz Body Mass Index (BMI) 39.9 Finger Stick Blood Glucose 286 Intake and Output for Last 24 Hours 06/16/17 06/17/17 06/18/17 23:59 23:59 23:59 Intake Total 4524 / 4524 3836 / 3836 700 / 700 Output Total 2375 / 2375 1825 / 1825 650 / 650 Balance 2149 / 2149 2010 50 / 50 Microbiology Past 72 Hours 06/16/17 16:41 Gram Stain - Final Tissue - Groin Wound Culture - Preliminary Gram positive organism Alpha hemolytic organism 06/16/17 16:41 Gram Stain - Final Tissue - Abdominal Wound Culture - Preliminary Staphylococcus aureus 06/15/17 21:25 Blood Culture - Preliminary Blood Culture (Wb) - Right Hand No growth in 48 hours. 06/15/17 21:15 Blood Culture - Preliminary Blood Culture (Wb) - Arm Right No growth in 48 hours. 06/15/17 23:00 Urine Culture - Final Urine, Clean Catch Mixed Gram Positive Organisms Laboratory Tests Past 24 Hrs 06/18/17 09:30 Vancomycin Trough 10.1 POC Glucose 06/18/17 06/17/17 06/17/17 10:10 21:32 17:07 POC Glucose 158 H 349 H 332 H Assessment/Plan Active and Suspected Problems MRSA (methicillin resistant Staphylococcus aureus) (Acute) Vulvar cellulitis (Acute) Pelvic wall abscess and ulcer (Acute) 1. 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 2. Necrotizing MRSA diabetic abscess left inguinal and perineal area. 3. Abdominal wall panniculus with panniculitis. 4. Diabetes mellitus. 5. MRSA. 6. Smoker. 7. Obesity. Abdominal wall wound and left inguinal and perineal wound are stable. No bleeding seen. VAC in place to the abdominal wall. It was difficult to maintain a seal in the left inguinal and perineal wound so the VAC was not placed there and wound care was started with Silver dressing changes daily. Also it was noted the patient was not interested in the VAC anyway in the left inguinal and perineal area and would have refused placement there. Tried to have a discussion with the patient about the seriousness of this infection and the complexity of the wound care and need for IV antibiotics. I think she would benefit from a short stay at a facility, whether it is TCU or an LTAC. Once the IV antibiotics are completed and once the wound care has stabilized, it would be safer then for the patient to return home. Estimated time involved would be 2-4 weeks. The patient became very defensive and adamantly refused any discharge to a facility and that she was going home no matter what. I don't know how much she truly understands about the seriousness of her current situation. Even though the surgery was successful and there is no further evidence of infection, she is still at risk for worsening of the infection that may necessitate additional urgent surgery. Because of the necrotizing nature of this infection in a poorly controlled diabetic, I stressed to the patient that suboptimal care of these wounds at home may lead to worsening of the infection, possible amputation, and possible . She is aware of these risks and insists on going home. She states she has a friend who can help her with the complex wound care. After further discussion, I think part of her reluctance to go to a facility temporarily is a personal one. She stated she just obtained custody of her daughter and is afraid that going to a facility would jeopardize her custody of her daughter. So at the present time, we are working on home antibiotics (most likely with Vancomycin) and getting Home Health to assist with wound care. An agency has been found and won't be available on Tuesday. The infusion company will also be availabable on Tuesday to set up the IV antibiotics at home. Because the VAC will only be on the abdominal wall, the inguinal wound will need daily dressing changes and possibly even twice a day. Home Health may not be able to go to her home on a daily basis. She states her friend would be able to do the additional dressing changes. Also I discussed with the patient the need to go home with the valdivia catheter. Once the wound care is stabilized at home, can remove the valdivia at that time. ( tentatively about a couple of weeks). She is aware of the necessity of the home valdivia catheter. Her Prealbumin was low at 12.0. Encourage nutritional supplementation with protein to help the healing process. After discharge, [facility]. She also states she will have closer followup with her PCP to maintain better control of her diabetes. Encouraged the patient to stop smoking as it may have deleterious effects on wound healing.
[2017-06-18 14:14] LABS: Hematocrit 33.5 % (37-47); Mean Corp Hgb Conc 32.8 g/gl (32-36); Mean Corpuscular Hgb 31.4 pg (27.0-32.0); Mean Corpuscular Volume 95.7 fL (81-99); Mean Platelet Vol. 10.9 fl (6.2-12.0); Platelet Count 258 K/mm3 (150-450); RBC Distribution Width CV 12.7 % (11.6-14.6); RBC Distribution Width SD 43.9 fl (35.1-43.9); Scan Indicated on CBC? Y/N NO; White Blood Count 9.5 K/mm3 (4.4-11.0)
[2017-06-18 14:24] LABS: Anion Gap 6 (5-15); BUN 10 mg/dL (7-18); BUN/Creat Ratio 17.9 RATIO (10-20); Chloride 105 mmol/L (98-107); Creatinine, Serum 0.56 mg/dL (0.55-1.02); EST Glomerular Filtration Rate 126 mL/min (>60); Est Glom Filt Rate - Afr Amer 152 mL/min (>60); Estimated Creatinine Clearance 103.51 ml/min; Glucose 301 mg/dL (70-110); Potassium 3.6 mmol/L (3.5-5.1); Sodium Level 140 mmol/L (136-145)
[2017-06-18 17:22] VITALS: BP 113/70; PULSE 79; RESP 14; TEMP 37; O2SAT 94
[2017-06-18 17:31] LABS: Bedside Glucose 269 mg/dL (70-110)
[2017-06-18 23:30] VITALS: BP 139/77; PULSE 90; RESP 18; TEMP 37; O2SAT 93
[2017-06-18] MEDS: 0.9% NaCl Peripheral Flush Adult/Peds IV ×2 (23:30→23:57)
[2017-06-18 23:33] VITALS: BP 139/77; PULSE 90
[2017-06-18] MEDS: Atorvastatin Calcium 80 MG Tablet PO (23:33)
[2017-06-18 23:56] LABS: Bedside Glucose 261 mg/dL (70-110)
[2017-06-19] MEDS: 0.9% Normal Saline 1,000 ML 75 ML IV ×2 (03:09→21:46)
[2017-06-19] MEDS: 0.9% NaCl Peripheral Flush Adult/Peds IV (05:44)
[2017-06-19] MEDS: Clindamycin 600 MG/50 ML BAG 100 MG IV ×3 (05:45→21:46)
[2017-06-19] MEDS: Cefazolin 2 GM in Syringe IV ×3 (05:45→21:46)
[2017-06-19] MEDS: Enoxaparin 40 MG/0.4 ML Syringe SC (05:45)
[2017-06-19 05:53] VITALS: BP 122/75; PULSE 73; RESP 18; TEMP 36.5; O2SAT 94
[2017-06-19 08:45] VITALS: BP 131/81; PULSE 83; RESP 16; TEMP 35.8; O2SAT 96
[2017-06-19] MEDS: Aspirin E.C. 81 MG Tablet PO (08:57)
[2017-06-19 09:05] VITALS: PULSE 83
[2017-06-19] MEDS: Glucerna Shake 120 ML LIQUID PO ×3 (09:05→17:38)
[2017-06-19] MEDS: Lisinopril 10 MG Tablet PO (09:05)
[2017-06-19] MEDS: FLUoxetine 20 MG Capsule PO (09:05)
[2017-06-19] MEDS: Metoprolol Tartrate 50 MG Tablet PO ×2 (09:05→21:47)
[2017-06-19] MEDS: Senna Tablet 1 TABLET PO (09:05)
[2017-06-19] MEDS: amLODIPine 5 MG Tablet PO (09:05)
[2017-06-19] MEDS: diazePAM 5 MG Tablet PO ×2 (09:11→21:48)
[2017-06-19 09:25] LABS: Bedside Glucose 179 mg/dL (70-110)
--- NOTE | 2017-06-19 11:01 | PCM.PN.HOSP ---
Patient Problems: Active and Suspected Problems MRSA (methicillin resistant Staphylococcus aureus) (Acute) Vulvar cellulitis (Acute) Pelvic wall abscess and ulcer (Acute) Subjective: Complains of a headache not relieved adequately with Tylenol. Vitals/I&O's: Vital Signs Temp Pulse Resp BP Pulse Ox 35.8 C L 83 16 131/81 H 96 06/19/17 08:45 06/19/17 09:05 06/19/17 08:45 06/19/17 08:45 06/19/17 08:45 Oxygen Flow Rate 2 Oxygen Delivery Method Room Air Weight: 99.11 kg Body Mass Index (BMI) 39.9 Finger Stick Blood Glucose 286 Intake and Output for Last 24 Hours 06/17/17 06/18/17 06/19/17 23:59 23:59 23:59 Intake Total 3836 / 3836 2632 / 2632 1018 / 1018 Output Total 1825 / 1825 1850 / 1850 475 / 475 Balance 2010 782 / 782 543 / 543 General: Alert, No apparent distress HEENT: Atraumatic, Normocephalic Neck: No Nodes, Thyroid Normal Size and Texture Lungs: Clear to auscultation, Normal air movement, No rhonchi, No wheeze Cardiovascular: Regular rate, Regular Rhythm, Normal S1, Normal S2, No murmurs Abdomen: Bowel Sounds Present, Soft, Non Tender, Non-Distended, Obese Extremities: No edema, No Calf Tenderness Psych/Mental Status: Normal Affect, Appropriate Microbiology Past 72 Hours 06/16/17 16:41 Tissue - Abdominal Gram Stain - Final 06/16/17 16:41 Tissue - Abdominal Wound Culture - Final Meth. resistant Staph. aureus 06/16/17 16:41 Tissue - Abdominal Anaerobic Culture - Preliminary Checking for anaerobes, further studies to follow. 06/16/17 16:41 Tissue - Groin Gram Stain - Final 06/16/17 16:41 Tissue - Groin Wound Culture - Preliminary Gram positive organism Alpha hemolytic organism 06/16/17 16:41 Tissue - Groin Anaerobic Culture - Preliminary Checking for anaerobes, further studies to follow. 06/15/17 21:25 Blood Culture (Wb) - Right Hand Blood Culture - Preliminary No growth in 48 hours. 06/15/17 21:15 Blood Culture (Wb) - Arm Right Blood Culture - Preliminary No growth in 48 hours. 06/15/17 23:00 Urine, Clean Catch Urine Culture - Final Mixed Gram Positive Organisms Laboratory Results 06/18/17 13:21: POC Glucose 306 H 06/18/17 13:50: WBC 9.5, RBC 3.50 L, Hgb 11.0 L, Hct 33.5 L, MCV 95.7, MCH 31.4, MCHC 32.8, RDW 12.7, RDW Differential 43.9, Plt Count 258, MPV 10.9 06/18/17 13:50: Sodium 140, Potassium 3.6, Chloride 105, Carbon Dioxide 29.0, Anion Gap 6, BUN 10, Creatinine 0.56, Estim Creat Clear Calc 103.51, Est GFR (MDRD) Af Amer 152, Est GFR (MDRD) Non-Af 126, BUN/Creatinine Ratio 17.9, Glucose 301 H, Calcium 8.0 L 06/18/17 17:11: POC Glucose 269 H 06/18/17 23:28: POC Glucose 261 H 06/19/17 08:53: POC Glucose 179 H Current Medications Acetaminophen (Tylenol) 650 mg PO Q4H PRN PRN PRN Reason: Mild pain/fever Last Admin: 06/18/17 23:35 Dose: 650 mg Amlodipine Besylate (Norvasc) 5 mg PO DAILY [facility] Last Admin: 06/19/17 09:05 Dose: 5 mg Aspirin (Ecotrin) 81 mg PO DAILY@0800 [facility] Last Admin: 06/19/17 08:57 Dose: 81 mg Atorvastatin Calcium (Lipitor) 80 mg PO QHS [facility] Last Admin: 06/18/17 23:33 Dose: 80 mg Dextrose (D50w Syringe) 0 gm IV X1 PRN; Protocol PRN Reason: Hypoglycemia Diazepam (Valium) 5 mg PO 4X/DAY PRN PRN PRN Reason: SPASMS Last Admin: 06/19/17 09:11 Dose: 5 mg Enoxaparin Sodium (Lovenox) 40 mg SC DAILY@0600 [facility] Last Admin: 06/19/17 05:45 Dose: 40 mg Fluoxetine HCl (Prozac) 20 mg PO DAILY [facility] Last Admin: 06/19/17 09:05 Dose: 20 mg Glucagon () 1 mg IM .X1 PRN PRN Reason: Hypoglycemia Glucagon () 1 mg IM .X1 PRN PRN Reason: Hypoglycemia Sodium Chloride () 1,000 mls @ 75 mls/hr IV .[id number] [facility] Last Admin: 06/19/17 03:09 Dose: 75 mls/hr Clindamycin Phosphate (Cleocin) 600 mg in 50 mls @ 100 mls/hr IV Q8 [facility] Last Admin: 06/19/17 05:45 Dose: 100 mls/hr Vancomycin HCl (Vancomycin) 1,000 mg in 200 mls @ 200 mls/hr IV Q8H [facility] Last Admin: 06/19/17 10:34 Dose: 200 mls/hr Cefazolin Sodium 2 gm/ N/A 20 mls @ 400 mls/hr IV Q8 [facility] Last Admin: 06/19/17 05:45 Dose: 400 mls/hr Insulin Aspart (Novolog Flexpen (Bkc)) 0 units SC ACHS [facility] PRN Reason: Protocol Last Admin: 06/19/17 08:57 Dose: 2 units Insulin Aspart (Novolog Flexpen (Bkc)) 8 units SC TIDAC [facility] Last Admin: 06/19/17 08:56 Dose: 8 units Insulin Detemir (Levemir (Bkc)) 30 units SC QHS [facility] Last Admin: 06/18/17 23:31 Dose: 30 u Lisinopril (Zestril) 10 mg PO DAILY [facility] Last Admin: 06/19/17 09:05 Dose: 10 mg Metoprolol Tartrate (Lopressor (Beta Familia)) 50 mg PO BID [facility] Last Admin: 06/19/17 09:05 Dose: 50 mg Morphine Sulfate (Morphine) 2 - 4 mg IV Q3H PRN PRN PRN Reason: SEVERE PAIN (6-10/10) Last Admin: 06/17/17 08:52 Dose: 4 mg Morphine Sulfate (Morphine) 2 - 4 mg IV Q3H PRN PRN PRN Reason: SEVERE PAIN (6-10/10) Last Admin: 06/18/17 23:57 Dose: 2 mg Nicotine (Nicoderm Cq (Pbkc)) 21 mg TRANSDERM. DAILY [facility] Last Admin: 06/19/17 09:06 Dose: 21 mg Nutritional Formula (Hans - [place] Flavor) [facility] Last Admin: 06/19/17 08:58 Dose: 1 packet Nutritional Formula (Lactose Free) (Glucerna Shake) 120 ml PO TIDCM [facility] Last Admin: 06/19/17 09:05 Dose: 120 ml Nystatin (Mycostatin Powder) 1 applic TOPICAL TID [facility] PRN Reason: Protocol Last Admin: 06/19/17 05:46 Dose: Not Given Senna (Senokot) 1 tablet PO BID [facility] Last Admin: 06/19/17 09:05 Dose: 1 tablet Sodium Chloride () 5 - 30 ml IV UD PRN PRN Reason: SALINE FLUSH Last Admin: 06/19/17 05:44 Dose: 10 ml Assessment/Plan Active and Suspected Problems MRSA (methicillin resistant Staphylococcus aureus) (Acute) Vulvar cellulitis (Acute) Pelvic wall abscess and ulcer (Acute) 42 yo female presents w open abdominal wounds. Patient underwent an I&D of her right lower abdominal wound as well as a left inguinal and perineal area. Patient had extensive debridement to the abdominal and inguinal wounds as well. Wounds are positive for MRSA and patient is on vancomycin, neomycin and cefazolin. Infectious disease on consultation and has not yet seen the patient. Currently waiting on final wound culture results as well as infectious disease input in regards to length, and antibiotics for discharge. As recommended by plastics the patient go [place] [facility] [place] facility the patient insisting on going home. So the plan, tentatively, is for her to go home with home care on the . Patient has subsequently been transferred from the gynecology service to the medical service. 1. Diabetes mellitus type 2, uncontrolled Blood sugars still uncontrolled, we will increase Levemir to 30 and prandial insulin to 18 with meals. Improved but still elevated. Certainly stress component is exacerbating the blood sugars. We will continue to monitor for now. 2. Abdominal wall abscess and inguinal abscess: Positive MRSA on vancomycin, cefazolin and vancomycin. Gynecology signed off. Being followed by Dr. Uriarte and infectious disease. 3. Migraine Recommend continue with Tylenol. Discussed with patient and nursing to avoid narcotics for her headache. Treatment may be some analgesic rebound associated with morphine. We will reevaluate see if patient's headache response with the Tylenol. Could utilize other agents such as Phenergan for the headaches. We will add as needed ibuprofen. 4. Coronary artery disease Patient states her last stent was in May 2016. Patient is on aspirin, metoprolol, lisinopril. Plavix on hold from the surgery. Patient has completed her year long treatment with Plavix so certainly appropriate old at this time. 5. DVT prophylaxis on Lovenox. Patient declining SCDs. 6. Constipation: Senna 7. Disposition: Plan is for home with home care. Is been the recommendation of Dr. Uriarte that the patient go to a [place] [facility] [place] facility for proper wound care as it is concerned that the patient will not get the ideal wound care at home and that her wound may be further compromised at home. Patient has expressed understanding but insists on going home. Apparently the patient has just regained custody of her child and wants to be home with the child. Code Visit Inpatient E&M: 79128 Subs Hosp L2
--- NOTE | 2017-06-19 11:10 | PN_ITS ---
Patient Problems: Active and Suspected Problems MRSA (methicillin resistant Staphylococcus aureus) (Acute) Vulvar cellulitis (Acute) Pelvic wall abscess and ulcer (Acute) Subjective: Complains of a headache not relieved adequately with Tylenol. Vitals/I&O's: Vital Signs Temp Pulse Resp BP Pulse Ox 35.8 C L 83 16 131/81 H 96 06/19/17 08:45 06/19/17 09:05 06/19/17 08:45 06/19/17 08:45 06/19/17 08:45 Oxygen Flow Rate 2 Oxygen Delivery Method Room Air Weight: 99.11 kg Body Mass Index (BMI) 39.9 Finger Stick Blood Glucose 286 Intake and Output for Last 24 Hours 06/17/17 06/18/17 06/19/17 23:59 23:59 23:59 Intake Total 3836 / 3836 2632 / 2632 1018 / 1018 Output Total 1825 / 1825 1850 / 1850 475 / 475 Balance 2010 782 / 782 543 / 543 General: Alert, No apparent distress HEENT: Atraumatic, Normocephalic Neck: No Nodes, Thyroid Normal Size and Texture Lungs: Clear to auscultation, Normal air movement, No rhonchi, No wheeze Cardiovascular: Regular rate, Regular Rhythm, Normal S1, Normal S2, No murmurs Abdomen: Bowel Sounds Present, Soft, Non Tender, Non-Distended, Obese Extremities: No edema, No Calf Tenderness Psych/Mental Status: Normal Affect, Appropriate Microbiology Past 72 Hours 06/16/17 16:41 Tissue - Abdominal Gram Stain - Final 06/16/17 16:41 Tissue - Abdominal Wound Culture - Final Meth. resistant Staph. aureus 06/16/17 16:41 Tissue - Abdominal Anaerobic Culture - Preliminary Checking for anaerobes, further studies to follow. 06/16/17 16:41 Tissue - Groin Gram Stain - Final 06/16/17 16:41 Tissue - Groin Wound Culture - Preliminary Gram positive organism Alpha hemolytic organism 06/16/17 16:41 Tissue - Groin Anaerobic Culture - Preliminary Checking for anaerobes, further studies to follow. 06/15/17 21:25 Blood Culture (Wb) - Right Hand Blood Culture - Preliminary No growth in 48 hours. 06/15/17 21:15 Blood Culture (Wb) - Arm Right Blood Culture - Preliminary No growth in 48 hours. 06/15/17 23:00 Urine, Clean Catch Urine Culture - Final Mixed Gram Positive Organisms Laboratory Results 06/18/17 13:21: POC Glucose 306 H 06/18/17 13:50: WBC 9.5, RBC 3.50 L, Hgb 11.0 L, Hct 33.5 L, MCV 95.7, MCH 31.4 , MCHC 32.8, RDW 12.7, RDW Differential 43.9, Plt Count 258, MPV 10.9 06/18/17 13:50: Sodium 140, Potassium 3.6, Chloride 105, Carbon Dioxide 29.0, Anion Gap 6, BUN 10, Creatinine 0.56, Estim Creat Clear Calc 103.51, Est GFR ( MDRD) Af Amer 152, Est GFR (MDRD) Non-Af 126, BUN/Creatinine Ratio 17.9, Glucose 301 H, Calcium 8.0 L 06/18/17 17:11: POC Glucose 269 H 06/18/17 23:28: POC Glucose 261 H 06/19/17 08:53: POC Glucose 179 H Current Medications Acetaminophen (Tylenol) 650 mg PO Q4H PRN PRN PRN Reason: Mild pain/fever Last Admin: 06/18/17 23:35 Dose: 650 mg Amlodipine Besylate (Norvasc) 5 mg PO DAILY [facility] Last Admin: 06/19/17 09:05 Dose: 5 mg Aspirin (Ecotrin) 81 mg PO DAILY@0800 [facility] Last Admin: 06/19/17 08:57 Dose: 81 mg Atorvastatin Calcium (Lipitor) 80 mg PO QHS [facility] Last Admin: 06/18/17 23:33 Dose: 80 mg Dextrose (D50w Syringe) 0 gm IV X1 PRN; Protocol PRN Reason: Hypoglycemia Diazepam (Valium) 5 mg PO 4X/DAY PRN PRN PRN Reason: SPASMS Last Admin: 06/19/17 09:11 Dose: 5 mg Enoxaparin Sodium (Lovenox) 40 mg SC DAILY@0600 [facility] Last Admin: 06/19/17 05:45 Dose: 40 mg Fluoxetine HCl (Prozac) 20 mg PO DAILY [facility] Last Admin: 06/19/17 09:05 Dose: 20 mg Glucagon () 1 mg IM .X1 PRN PRN Reason: Hypoglycemia Glucagon () 1 mg IM .X1 PRN PRN Reason: Hypoglycemia Sodium Chloride () 1,000 mls @ 75 mls/hr IV .[id number] [facility] Last Admin: 06/19/17 03:09 Dose: 75 mls/hr Clindamycin Phosphate (Cleocin) 600 mg in 50 mls @ 100 mls/hr IV Q8 [facility] Last Admin: 06/19/17 05:45 Dose: 100 mls/hr Vancomycin HCl (Vancomycin) 1,000 mg in 200 mls @ 200 mls/hr IV Q8H [facility] Last Admin: 06/19/17 10:34 Dose: 200 mls/hr Cefazolin Sodium 2 gm/ N/A 20 mls @ 400 mls/hr IV Q8 [facility] Last Admin: 06/19/17 05:45 Dose: 400 mls/hr Insulin Aspart (Novolog Flexpen (Bkc)) 0 units SC ACHS [facility] PRN Reason: Protocol Last Admin: 06/19/17 08:57 Dose: 2 units Insulin Aspart (Novolog Flexpen (Bkc)) 8 units SC TIDAC [facility] Last Admin: 06/19/17 08:56 Dose: 8 units Insulin Detemir (Levemir (Bkc)) 30 units SC QHS [facility] Last Admin: 06/18/17 23:31 Dose: 30 u Lisinopril (Zestril) 10 mg PO DAILY [facility] Last Admin: 06/19/17 09:05 Dose: 10 mg Metoprolol Tartrate (Lopressor (Beta Familia)) 50 mg PO BID [facility] Last Admin: 06/19/17 09:05 Dose: 50 mg Morphine Sulfate (Morphine) 2 - 4 mg IV Q3H PRN PRN PRN Reason: SEVERE PAIN (6-10/10) Last Admin: 06/17/17 08:52 Dose: 4 mg Morphine Sulfate (Morphine) 2 - 4 mg IV Q3H PRN PRN PRN Reason: SEVERE PAIN (6-10/10) Last Admin: 06/18/17 23:57 Dose: 2 mg Nicotine (Nicoderm Cq (Pbkc)) 21 mg TRANSDERM. DAILY [facility] Last Admin: 06/19/17 09:06 Dose: 21 mg Nutritional Formula (Hans - [place] Flavor) [facility] Last Admin: 06/19/17 08:58 Dose: 1 packet Nutritional Formula (Lactose Free) (Glucerna Shake) 120 ml PO TIDCM [facility] Last Admin: 06/19/17 09:05 Dose: 120 ml Nystatin (Mycostatin Powder) 1 applic TOPICAL TID [facility] PRN Reason: Protocol Last Admin: 06/19/17 05:46 Dose: Not Given Senna (Senokot) 1 tablet PO BID [facility] Last Admin: 06/19/17 09:05 Dose: 1 tablet Sodium Chloride () 5 - 30 ml IV UD PRN PRN Reason: SALINE FLUSH Last Admin: 06/19/17 05:44 Dose: 10 ml Assessment/Plan Active and Suspected Problems MRSA (methicillin resistant Staphylococcus aureus) (Acute) Vulvar cellulitis (Acute) Pelvic wall abscess and ulcer (Acute) 42 yo female presents w open abdominal wounds. Patient underwent an I&D of her right lower abdominal wound as well as a left inguinal and perineal area. Patient had extensive debridement to the abdominal and inguinal wounds as well. Wounds are positive for MRSA and patient is on vancomycin, neomycin and cefazolin. Infectious disease on consultation and has not yet seen the patient. Currently waiting on final wound culture results as well as infectious disease input in regards to length, and antibiotics for discharge. As recommended by plastics the patient go to a half-way facility the patient insisting on going home. So the plan, tentatively, is for her to go home with home care on the . Patient has subsequently been transferred from the gynecology service to the medical service. 1. Diabetes mellitus type 2, uncontrolled Blood sugars still uncontrolled, we will increase Levemir to 30 and prandial insulin to 18 with meals. Improved but still elevated. Certainly stress component is exacerbating the blood sugars. We will continue to monitor for now. 2. Abdominal wall abscess and inguinal abscess: Positive MRSA on vancomycin, cefazolin and vancomycin. Gynecology signed off. Being followed by Dr. Uriarte and infectious disease. 3. Migraine Recommend continue with Tylenol. Discussed with patient and nursing to avoid narcotics for her headache. Treatment may be some analgesic rebound associated with morphine. We will reevaluate see if patient's headache response with the Tylenol. Could utilize other agents such as Phenergan for the headaches. We will add as needed ibuprofen. 4. Coronary artery disease Patient states her last stent was in May 2016. Patient is on aspirin, metoprolol, lisinopril. Plavix on hold from the surgery. Patient has completed her year long treatment with Plavix so certainly appropriate old at this time. 5. DVT prophylaxis on Lovenox. Patient declining SCDs. 6. Constipation: Senna 7. Disposition: Plan is for home with home care. Is been the recommendation of Dr. Uriarte that the patient go to a half-way facility for proper wound care as it is concerned that the patient will not get the ideal wound care at home and that her wound may be further compromised at home. Patient has expressed understanding but insists on going home. Apparently the patient has just regained custody of her child and wants to be home with the child. Code Visit Inpatient E&M: 60685 Subs Hosp L2
[2017-06-19] MEDS: Ibuprofen 600 MG Tablet PO (12:38)
[2017-06-19 12:46] LABS: Bedside Glucose 223 mg/dL (70-110)
[2017-06-19 14:45] VITALS: BP 119/69; PULSE 77; RESP 16; TEMP 36.4; O2SAT 94
[2017-06-19 18:16] LABS: Bedside Glucose 268 mg/dL (70-110)
[2017-06-19 20:22] VITALS: BP 114/65; PULSE 81; RESP 18; TEMP 36.6; O2SAT 94
[2017-06-19 21:47] VITALS: PULSE 81
[2017-06-19] MEDS: Atorvastatin Calcium 80 MG Tablet PO (21:47)
[2017-06-19 22:00] LABS: Bedside Glucose 239 mg/dL (70-110)
[2017-06-20 02:07] VITALS: BP 120/83; PULSE 76; RESP 18; TEMP 36.9; O2SAT 98
[2017-06-20] MEDS: 0.9% NaCl Peripheral Flush Adult/Peds IV ×2 (05:49→11:13)
[2017-06-20] MEDS: Enoxaparin 40 MG/0.4 ML Syringe SC (05:49)
[2017-06-20] MEDS: Cefazolin 2 GM in Syringe IV (05:49)
[2017-06-20] MEDS: Clindamycin 600 MG/50 ML BAG 100 MG IV (05:49)
[2017-06-20 06:11] LABS: Absolute Lymphocyte Count 2.27 X10^3/ul (0.83-4.51); Absolute Neutrophil Count 6.6 X10^3/uL (2.0-7.7); Basophil# 0.02 X10^3/uL; Basophil% 0.2 % (0-1); Eosinophil# 0.14 X10^3/uL; Eosinophils% 1.4 % (0-5); Hematocrit 34.1 % (37-47); Hemoglobin 11.3 g/dl (12.0-15.0); Lymphocyte # 2.27 X10^3/ul (4.0); Lymphocyte % 22.8 % (19-41); Mean Corp Hgb Conc 33.1 g/gl (32-36); Mean Corpuscular Volume 96.6 fL (81-99); Mean Platelet Vol. 10.8 fl (6.2-12.0); Monocyte# 0.85 X10^3/uL; Monocyte% 8.5 % (0-10); Neutrophil # 6.59 X10^3/uL (2.7-7.7); Neutrophil % 66.1 % (47-70); Platelet Count 293 K/mm3 (150-450); RBC Distribution Width CV 12.7 % (11.6-14.6); RBC Distribution Width SD 42.7 fl (35.1-43.9); Red Blood Count 3.53 M/mm3 (4.2-5.4)
[2017-06-20 06:24] LABS: Anion Gap 7 (5-15); BUN 10 mg/dL (7-18); BUN/Creat Ratio 20.6 RATIO (10-20); Calcium,Total 8.8 mg/dL (8.5-10.1); Chloride 100 mmol/L (98-107); Creatinine, Serum 0.49 mg/dL (0.55-1.02); EST Glomerular Filtration Rate 148 mL/min (>60); Est Glom Filt Rate - Afr Amer 180 mL/min (>60); Estimated Creatinine Clearance 118.29 ml/min; Glucose 202 mg/dL (70-110); Potassium 3.9 mmol/L (3.5-5.1); Sodium Level 136 mmol/L (136-145)
[2017-06-20 06:39] LABS: POSITIVE COUNT NO; POSITIVE DIFFERENTIAL NO; POSITIVE MORPHOLOGY NO
[2017-06-20 07:53] VITALS: BP 121/68; PULSE 81; RESP 18; TEMP 36.7; O2SAT 100
[2017-06-20 08:07] VITALS: PULSE 88
[2017-06-20] MEDS: Aspirin E.C. 81 MG Tablet PO (08:07)
[2017-06-20] MEDS: FLUoxetine 20 MG Capsule PO (08:07)
[2017-06-20] MEDS: Lisinopril 10 MG Tablet PO (08:07)
[2017-06-20] MEDS: Glucerna Shake 120 ML LIQUID PO (08:07)
[2017-06-20] MEDS: Senna Tablet 1 TABLET PO (08:07)
[2017-06-20] MEDS: amLODIPine 5 MG Tablet PO (08:07)
[2017-06-20] MEDS: Metoprolol Tartrate 50 MG Tablet PO (08:07)
[2017-06-20 08:21] LABS: Bedside Glucose 205 mg/dL (70-110)
--- NOTE | 2017-06-20 09:18 | DCINST_ITS ---
- Discharge Diagnoses Current Active Problems: Current Active and Chronic Problems MRSA (methicillin resistant Staphylococcus aureus) (Acute) Vulvar cellulitis (Acute) Pelvic wall abscess and ulcer (Acute) You will use the following diet at home:: Calorie/Carbohydrate Controlled ( specify 1200, 1400, etc) - 1800 Your food should be the consistency of: Regular Discharge Activity: Return to Normal Activity, May not drive while taking narcotic pain medications. Allergies/Adverse Reactions: Allergies No Known Allergies Allergy (Verified 08/26/15 15:15) Medications to take at Discharge Fluoxetine [Prozac] 60 mg PO DAILY 05/20/16 Metoprolol Tartrate [Lopressor (beta steph)] 50 mg PO BID #60 tablet 05/22/16 Amlodipine [Norvasc] 5 mg PO DAILY 06/15/17 Aspirin E.C. [Ecotrin] 81 mg PO DAILY@0800 06/15/17 Atorvastatin Calcium [Lipitor] 80 mg PO QHS 06/15/17 Clopidogrel Bisulfate [Plavix] 75 mg PO DAILY 06/15/17 Insulin Detemir [Levemir FlexPen] 20 units SC QHS 06/15/17 Lisinopril [Zestril] 10 mg PO DAILY 06/15/17 Tiotropium [place] [Spiriva 18 MCG] 1 puff INHALATION DAILY PRN 06/15/17 Doxycycline [Vibramycin] 100 mg PO BID #20 cap 06/20/17 The following prescriptions were given: Doxycycline [Vibramycin] 100 mg PO BID #20 cap Primary Care Physician: Rupa Johnson MD [Primary Care Provider] - Please follow up with your Primary Care Physician in: in 5-7 days Please Follow Up With: Brian Uriarte MD When: at the wound care center as previously scheduled Proposed Discharge Date: 06/20/17
--- NOTE | 2017-06-20 09:18 | PCM.DC.SUM ---
Discharge Date and Diagnosis - Problem List Patient Problems: Active and Suspected Problems MRSA (methicillin resistant Staphylococcus aureus) (Acute) Vulvar cellulitis (Acute) Pelvic wall abscess and ulcer (Acute) Date of Admission: 06/16/17 Date of Discharge: 06/20/17 - Primary Discharge Diagnosis Active and Suspected Problems MRSA (methicillin resistant Staphylococcus aureus) (Acute) Vulvar cellulitis (Acute) Pelvic wall abscess and ulcer (Acute) - Secondary Discharge Diagnosis Chronic Problems Intertrigo (Chronic) Abdominal wall skin crease intertrigo Abdominal panniculus, symptomatic (Chronic) NSTEMI (non-ST elevated myocardial infarction) (Chronic) HTN (hypertension) (Chronic) Diabetes mellitus (Chronic) HLD (hyperlipidemia) (Chronic) Tobacco abuse (Chronic) Hospital Course and Treatment Imaging Results: Clinical Impression(s) from Imaging Studies Abdomen/Pelvis CT 06/15/17 18:00 IMPRESSION: Skin ulceration and generalized thickening of the skin with stranding in the superficial subcutaneous layers of the patient's overhanging abdominal panniculus without an underlying focal fluid collection or abscess. Stranding in the fatty tissues of the left medial thigh included in the [id number] extending into the fatty tissues of the perineum without a focal fluid collection or visible abscess cavity in the [id number]. Skin ulceration in the perineum or thigh not obvious. Shotty bilateral inguinal adenopathy. No additional acute abdominal or pelvic findings. Electronically Signed: Henrietta Steinberg MD at 19:28 EST , Service support , Consultations 06/15/17 20:31 Consult: Onc/Wound/medical office coordinator Routine Comment: Summary of Care Provided: The patient is a 42 year old F admitted with open abdominal wound 1. Abdominal wall abscess and inguinal abscess with MRSA, Staphylococcus epidermidis, Lactobacillus acidophilus patient underwent incision and drainage by Dr. Uriarte with plastic surgery. Was also seen in consultation by infectious disease managed initially with clindamycin and cefazolin and vancomycin patient was however discharged home on doxy and Augmentin after discussion with infectious disease. Plan was for patient to have been discharged to longterm facility for appropriate wound care she however declined and insisted on being discharged home with home health. Patient was discharged home with a wound VAC 2. Diabetes mellitus type 2 uncontrolled with hyperglycemia did continue with patient oral agent in addition to Accu-Cheks before meals and at bedtime with sliding scale insulin 3. Chronic migraine; symptomatic treatment 4. CAD with stent placement in May 2016 patient is on aspirin, metoprolol lisinopril Plavix continue during her admission 5. Morbid obesity with BMI of 40.0 lifestyle modification including weight loss advised 6. Tobacco dependence counseled on cessation, offered nicotine patch for tobacco cravings 7. Dyslipidemia-patient is on statin therapy, continued at home dose 8. Constipation patient was treated with senna 9. DVT prophylaxis SC Lovenox Discharge Diet: 1800 Calorie Control Diet Discharge Activity: Return to Normal Activity, May not drive while taking narcotic pain medications. Home Medications: Medications to take at Discharge Fluoxetine [Prozac] 60 mg PO DAILY 05/20/16 Metoprolol Tartrate [Lopressor (beta steph)] 50 mg PO BID #60 tablet 05/22/16 Amlodipine [Norvasc] 5 mg PO DAILY 06/15/17 Aspirin E.C. [Ecotrin] 81 mg PO DAILY@0800 06/15/17 Atorvastatin Calcium [Lipitor] 80 mg PO QHS 06/15/17 Clopidogrel Bisulfate [Plavix] 75 mg PO DAILY 06/15/17 Insulin Detemir [Levemir FlexPen] 20 units SC QHS 06/15/17 Lisinopril [Zestril] 10 mg PO DAILY 06/15/17 Tiotropium [place] [Spiriva 18 MCG] 1 puff INHALATION DAILY PRN 06/15/17 Amoxicillin/Potassium Clav [Augmentin 875-125 Tablet] 1 ea PO BID #20 tab 06/20/17 Diazepam [Valium] 5 mg PO 4X/DAY PRN PRN 7 Days #30 tab 06/20/17 Doxycycline [Vibramycin] 100 mg PO BID #20 cap 06/20/17 Insulin Aspart [Novolog Flexpen (BKC)] 4 units SC TIDCM 06/20/17 Lactobacillus Acidophilus [Acidophilus] 1 tab PO DAILY #30 tab 06/20/17 Following Prescrptions Were Given to Patient: Amoxicillin/Potassium Clav [Augmentin 875-125 Tablet] 1 ea PO BID #20 tab Diazepam [Valium] 5 mg PO 4X/DAY PRN PRN 7 Days #30 tab PRN Reason: Spasms Doxycycline [Vibramycin] 100 mg PO BID #20 cap Lactobacillus Acidophilus [Acidophilus] 1 tab PO DAILY #30 tab Primary Care Physician: Rupa Johnson MD [Primary Care Provider] - Please follow up with your Primary Care Physician in: in 5-7 days Please Follow Up With: Brian Uriarte MD When: at the wound care center as previously scheduled Disposition: Home with Home Health Minutes spent on discharge:: 35 Patient Condition:: Stable Meaningful Use Info Meaningful Use Diagnoses (Choose all that apply): None applicable Code Visit Inpatient E&M: 16236 Disch Hosp
--- NOTE | 2017-06-20 09:23 | DS.PCM_ITS ---
Discharge Date and Diagnosis - Problem List Patient Problems: Active and Suspected Problems MRSA (methicillin resistant Staphylococcus aureus) (Acute) Vulvar cellulitis (Acute) Pelvic wall abscess and ulcer (Acute) Date of Admission: 06/16/17 Date of Discharge: 06/20/17 - Primary Discharge Diagnosis Active and Suspected Problems MRSA (methicillin resistant Staphylococcus aureus) (Acute) Vulvar cellulitis (Acute) Pelvic wall abscess and ulcer (Acute) - Secondary Discharge Diagnosis Chronic Problems Intertrigo (Chronic) Abdominal wall skin crease intertrigo Abdominal panniculus, symptomatic (Chronic) NSTEMI (non-ST elevated myocardial infarction) (Chronic) HTN (hypertension) (Chronic) Diabetes mellitus (Chronic) HLD (hyperlipidemia) (Chronic) Tobacco abuse (Chronic) Hospital Course and Treatment Imaging Results: Clinical Impression(s) from Imaging Studies Abdomen/Pelvis CT 06/15/17 18:00 IMPRESSION: Skin ulceration and generalized thickening of the skin with stranding in the superficial subcutaneous layers of the patient's overhanging abdominal panniculus without an underlying focal fluid collection or abscess. Stranding in the fatty tissues of the left medial thigh included in the [id number] extending into the fatty tissues of the perineum without a focal fluid collection or visible abscess cavity in the [id number]. Skin ulceration in the perineum or thigh not obvious. Shotty bilateral inguinal adenopathy. No additional acute abdominal or pelvic findings. Electronically Signed: Henrietta Steinberg MD at 19:28 EST , Service support , Consultations 06/15/17 20:31 Consult: Onc/Wound/gear tester Routine Comment: Summary of Care Provided: The patient is a 42 year old F admitted with open abdominal wound 1. Abdominal wall abscess and inguinal abscess with MRSA, Staphylococcus epidermidis, Lactobacillus acidophilus patient underwent incision and drainage by Dr. Uriarte with plastic surgery. Was also seen in consultation by infectious disease managed initially with clindamycin and cefazolin and vancomycin patient was however discharged home on doxy and Augmentin after discussion with infectious disease. Plan was for patient to have been discharged to [facility] facility for appropriate wound care she however declined and insisted on being discharged home with home health. Patient was discharged home with a wound VAC 2. Diabetes mellitus type 2 uncontrolled with hyperglycemia did continue with patient oral agent in addition to Accu-Cheks before meals and at bedtime with sliding scale insulin 3. Chronic migraine; symptomatic treatment 4. CAD with stent placement in May 2016 patient is on aspirin, metoprolol lisinopril Plavix continue during her admission 5. Morbid obesity with BMI of 40.0 lifestyle modification including weight loss advised 6. Tobacco dependence counseled on cessation, offered nicotine patch for tobacco cravings 7. Dyslipidemia-patient is on statin therapy, continued at home dose 8. Constipation patient was treated with senna 9. DVT prophylaxis SC Lovenox Discharge Diet: 1800 Calorie Control Diet Discharge Activity: Return to Normal Activity, May not drive while taking narcotic pain medications. Home Medications: Medications to take at Discharge Fluoxetine [Prozac] 60 mg PO DAILY 05/20/16 Metoprolol Tartrate [Lopressor (beta steph)] 50 mg PO BID #60 tablet 05/22/16 Amlodipine [Norvasc] 5 mg PO DAILY 06/15/17 Aspirin E.C. [Ecotrin] 81 mg PO DAILY@0800 06/15/17 Atorvastatin Calcium [Lipitor] 80 mg PO QHS 06/15/17 Clopidogrel Bisulfate [Plavix] 75 mg PO DAILY 06/15/17 Insulin Detemir [Levemir FlexPen] 20 units SC QHS 06/15/17 Lisinopril [Zestril] 10 mg PO DAILY 06/15/17 Tiotropium [place] [Spiriva 18 MCG] 1 puff INHALATION DAILY PRN 06/15/17 Amoxicillin/Potassium Clav [Augmentin 875-125 Tablet] 1 ea PO BID #20 tab Diazepam [Valium] 5 mg PO 4X/DAY PRN PRN 7 Days #30 tab 06/20/17 Doxycycline [Vibramycin] 100 mg PO BID #20 cap 06/20/17 Insulin Aspart [Novolog Flexpen (BKC)] 4 units SC TIDCM 06/20/17 Lactobacillus Acidophilus [Acidophilus] 1 tab PO DAILY #30 tab 06/20/17 Following Prescrptions Were Given to Patient: Amoxicillin/Potassium Clav [Augmentin 875-125 Tablet] 1 ea PO BID #20 tab Diazepam [Valium] 5 mg PO 4X/DAY PRN PRN 7 Days #30 tab PRN Reason: Spasms Doxycycline [Vibramycin] 100 mg PO BID #20 cap Lactobacillus Acidophilus [Acidophilus] 1 tab PO DAILY #30 tab Primary Care Physician: Rupa Johnson MD [Primary Care Provider] - Please follow up with your Primary Care Physician in: in 5-7 days Please Follow Up With: Brian Uriarte MD When: at the wound care center as previously scheduled Disposition: Home with Home Health Minutes spent on discharge:: 35 Patient Condition:: Stable Meaningful Use Info Meaningful Use Diagnoses (Choose all that apply): None applicable Code Visit Inpatient E&M: 72172 Disch Hosp
--- NOTE | 2017-06-20 09:43 | CASEMGMT ---
Calls made this am to [facility], their phones are down. answering service left messages with staff, but they are not returning calls. New Referral made to [facility] , . They will attempt to process for delivery this afternoon, but could not guarantee. -Per Dr. Arevalo, ID- pt can return home on po antibiotics. IV companies called to cancel infusion referrals. 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 Recommend sending enough supplies for dressing change david am when home health comes to see pt. -Plan: dc home on po antibiotics, wound vac, home health through [facility]. .
[2017-06-20] MEDS: diazePAM 5 MG Tablet PO (10:14)
[2017-06-20] MEDS: Doxycycline 100 MG CAPSULE PO (11:21)
[2017-06-20] MEDS: Amox/Clavulanate 875 MG Tablet PO (11:21)
--- NOTE | 2017-06-20 11:22 | PCM.PN.ID ---
Patient Problems: Active and Suspected Problems MRSA (methicillin resistant Staphylococcus aureus) (Acute) Vulvar cellulitis (Acute) Pelvic wall abscess and ulcer (Acute) Subjective: Feeling better, pain controlled, no fever, no n/v/d. - Physical Exam General: Alert, Cooperative Lungs: Clear to auscultation, Normal air movement Cardiovascular: Regular rate, Regular Rhythm Abdomen: Soft, Non Tender, Non-Distended Skin: Incision - wound vac in place Vital Signs Temp Pulse Resp BP Pulse Ox 98.1 F 88 18 121/68 H 100 06/20/17 07:53 06/20/17 08:07 06/20/17 07:53 06/20/17 07:53 06/20/17 07:53 Oxygen Flow Rate 2 Oxygen Delivery Method Room Air Weight: 99.11 kg Body Mass Index (BMI) 39.9 Finger Stick Blood Glucose 286 Intake and Output for Last 24 Hours 06/18/17 06/19/17 06/20/17 23:59 23:59 23:59 Intake Total 2632 / 2632 3704 / 3704 2090 / 2090 Output Total 1850 / 1850 2575 / 2575 1250 / 1250 Balance 782 / 782 1129 / 1129 840 / 840 Microbiology Past 72 Hours 06/16/17 16:41 Gram Stain - Final Tissue - Groin Wound Culture - Final Staphylococcus epidermidis Lactobacillus acidophilus Anaerobic Culture - Preliminary Checking for anaerobes, further studies to follow. 06/16/17 16:41 Gram Stain - Final Tissue - Abdominal Wound Culture - Final Meth. resistant Staph. aureus Anaerobic Culture - Final No anaerobic bacteria isolated. 06/15/17 21:25 Blood Culture - Preliminary Blood Culture (Wb) - Right Hand No growth in 48 hours. 06/15/17 21:15 Blood Culture - Preliminary Blood Culture (Wb) - Arm Right No growth in 48 hours. 06/15/17 23:00 Urine Culture - Final Urine, Clean Catch Mixed Gram Positive Organisms Laboratory Tests Past 24 Hrs 06/20/17 06/20/17 05:45 05:45 WBC 10.0 RBC 3.53 L Hgb 11.3 L Hct 34.1 L MCV 96.6 MCH 32.0 MCHC 33.1 RDW 12.7 RDW Differential 42.7 Plt Count 293 MPV 10.8 Immature Gran % (Auto) 1.000 H Neut % (Auto) 66.1 Lymph % (Auto) 22.8 Coffey % (Auto) 8.5 Eos % (Auto) 1.4 Baso % (Auto) 0.2 Absolute Neuts (auto) 6.6 Absolute Lymphs (auto) 2.27 Total Counted Not Reportable Sodium 136 Potassium 3.9 Chloride 100 Carbon Dioxide 29.0 Anion Gap 7 BUN 10 Creatinine 0.49 L Estim Creat Clear Calc 118.29 Est GFR (MDRD) Af Amer 180 Est GFR (MDRD) Non-Af 148 BUN/Creatinine Ratio 20.6 H Glucose 202 H Calcium 8.8 POC Glucose 06/20/17 06/19/17 06/19/17 07:56 21:41 17:36 POC Glucose 205 H 239 H 268 H 06/19/17 12:32 POC Glucose 223 H Route of nutrition/ use of supplements: [] Nutritional Intake: [] IV Site: [] Nicholson Catheter: [] - Assessment/Plan Antibiotics: [] Assessment/Plan: [] Active and Suspected Problems Necrotizing soft tissue infection (Acute) necrotizing MRSA abscess soft tissue infection right lower abdominal wall Type 2 diabetes mellitus with other skin ulcer (Acute) Abdominal wall abscess (Acute) MRSA (methicillin resistant Staphylococcus aureus) (Acute) Vulvar cellulitis (Acute) Pelvic wall abscess and ulcer (Acute) PCR (+) for MRSA. OR 06/16 for debridement, cxs with staph aureus, lactobacillus, and MSSE. Q8h hour home iv vanc would be very difficult for her; picc line has its own infectious risk. Based on susceptibility testing, she has good oral options. Recommend home on 10 day course of doxy and augmentin. ID followup as needed. will follow. D/w Dr. Flor and case manager specialist.
[2017-06-20 11:26] LABS: Bedside Glucose 282 mg/dL (70-110)
[2017-06-20] MEDS: Ibuprofen 600 MG Tablet PO (13:09)
[2017-06-20 13:14] VITALS: BP 143/83; PULSE 81; RESP 20; TEMP 36.7; O2SAT 98
--- NOTE | 2017-06-20 13:37 | PN.SURG_ITS ---
Patient Problems: Active and Suspected Problems MRSA (methicillin resistant Staphylococcus aureus) (Acute) Vulvar cellulitis (Acute) Pelvic wall abscess and ulcer (Acute) Subjective: Postop #4 Patient is resting comfortably. Had some pain with the VAC change today. - Physical Exam General: Alert, Oriented x3 HEENT: PERRLA, EOMI Oral: Moist Mucosa Neck: Supple Lungs: Clear to auscultation Cardiovascular: Regular rate, Regular Rhythm Skin: Ulcer/ Wound - abdominal wall wound and left groin wound are stable. No bleeding. No further evidence of infection. Some tenderness during dressing changes. VAC in place abdominal wall. Daily Silver dressing changes to left groin. Neurological: Cranial nerves II-XII grossly intact Psych/Mental Status: Normal Affect, Appropriate Vital Signs Temp Pulse Resp BP Pulse Ox 98.0 F 81 20 H 143/83 H 98 06/20/17 13:14 06/20/17 13:14 06/20/17 13:14 06/20/17 13:14 06/20/17 13:14 Oxygen Flow Rate 2 Oxygen Delivery Method Room Air Weight: 218 lb 8.002 oz Body Mass Index (BMI) 39.9 Finger Stick Blood Glucose 286 Intake and Output for Last 24 Hours 06/18/17 06/19/17 06/20/17 23:59 23:59 23:59 Intake Total 2632 / 2632 3704 / 3704 2090 / 2090 Output Total 1850 / 1850 2575 / 2575 1700 / 1700 Balance 782 / 782 1129 / 1129 390 / 390 Microbiology Past 72 Hours 06/16/17 16:41 Gram Stain - Final Tissue - Groin Wound Culture - Final Staphylococcus epidermidis Lactobacillus acidophilus Anaerobic Culture - Preliminary Checking for anaerobes, further studies to follow. 06/16/17 16:41 Gram Stain - Final Tissue - Abdominal Wound Culture - Final Meth. resistant Staph. aureus Anaerobic Culture - Final No anaerobic bacteria isolated. 06/15/17 21:25 Blood Culture - Preliminary Blood Culture (Wb) - Right Hand No growth in 48 hours. 06/15/17 21:15 Blood Culture - Preliminary Blood Culture (Wb) - Arm Right No growth in 48 hours. 06/15/17 23:00 Urine Culture - Final Urine, Clean Catch Mixed Gram Positive Organisms Laboratory Tests Past 24 Hrs 06/20/17 06/20/17 05:45 05:45 WBC 10.0 RBC 3.53 L Hgb 11.3 L Hct 34.1 L MCV 96.6 MCH 32.0 MCHC 33.1 RDW 12.7 RDW Differential 42.7 Plt Count 293 MPV 10.8 Immature Gran % (Auto) 1.000 H Neut % (Auto) 66.1 Lymph % (Auto) 22.8 Hendricks % (Auto) 8.5 Eos % (Auto) 1.4 Baso % (Auto) 0.2 Absolute Neuts (auto) 6.6 Absolute Lymphs (auto) 2.27 Total Counted Not Reportable Sodium 136 Potassium 3.9 Chloride 100 Carbon Dioxide 29.0 Anion Gap 7 BUN 10 Creatinine 0.49 L Estim Creat Clear Calc 118.29 Est GFR (MDRD) Af Amer 180 Est GFR (MDRD) Non-Af 148 BUN/Creatinine Ratio 20.6 H Glucose 202 H Calcium 8.8 POC Glucose 06/20/17 06/20/17 06/19/17 11:18 07:56 21:41 POC Glucose 282 H 205 H 239 H 06/19/17 17:36 POC Glucose 268 H Assessment/Plan Active and Suspected Problems MRSA (methicillin resistant Staphylococcus aureus) (Acute) Vulvar cellulitis (Acute) Pelvic wall abscess and ulcer (Acute) 1. 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 2. Necrotizing MRSA diabetic abscess left inguinal and perineal area. 3. Abdominal wall panniculus with panniculitis. 4. Diabetes mellitus. 5. MRSA. 6. Smoker. 7. Obesity. Abdominal wall wound and left inguinal and perineal wound are stable. No bleeding seen. VAC in place to the abdominal wall. It was difficult to maintain a seal in the left inguinal and perineal wound so the VAC was not placed there and wound care was started with Silver dressing changes daily. Also it was noted the patient was not interested in the VAC anyway in the left inguinal and perineal area and would have refused placement there. Tried to have a discussion with the patient about the seriousness of this infection and the complexity of the wound care and need for IV antibiotics. I think she would benefit from a short stay at a facility, whether it is TCU or an LTAC. Once the IV antibiotics are completed and once the wound care has stabilized, it would be safer then for the patient to return home. Estimated time involved would be 2-4 weeks. The patient became very defensive and adamantly refused any discharge to a facility and that she was going home no matter what. I don't know how much she truly understands about the seriousness of her current situation. Even though the surgery was successful and there is no further evidence of infection, she is still at risk for worsening of the infection that may necessitate additional urgent surgery. Because of the necrotizing nature of this infection in a poorly controlled diabetic, I stressed to the patient that suboptimal care of these wounds at home may lead to worsening of the infection, possible amputation, and possible . She is aware of these risks and insists on going home. She states she has a friend who can help her with the complex wound care. After further discussion, I think part of her reluctance to go to a facility temporarily is a personal one. She stated she just obtained custody of her daughter and is afraid that going to a facility would jeopardize her custody of her daughter. So at the present time, Infectious Diseases felt she could go home on po antibiotics without the need for IV antibiotics. She will go home on Doxycycline for 10 days. Will reassess at the Wound Center. Home Health is available for the VAC changes. Because the VAC will only be on the abdominal wall, the inguinal wound will need daily dressing changes and possibly even twice a day. Home Health may not be able to go to her home on a daily basis. She states her friend would be able to do the additional dressing changes. Also I discussed with the patient the need to go home with the valdivia catheter. Once the wound care is stabilized at home, can remove the valdivia at that time. ( tentatively about a couple of weeks). She is aware of the necessity of the home valdivia catheter. Her Prealbumin was low at 12.0. Encourage nutritional supplementation with protein to help the healing process. Wrote scripts for Percocet for pain (50 tabs) and Valium for spasm (30 tabs). After discharge, followup at the Wound Center on Tuesday07/11/16 at 900 am. She also states she will have closer followup with her PCP to maintain better control of her diabetes. Encouraged the patient to stop smoking as it may have deleterious effects on wound healing. Code Visit Inpatient E&M: 06293 Subs Hosp L1 - ICD-10 - L02.211, E11.622, M79.89, A49.02 , E65, L30.4, F17.200
--- NOTE | 2017-06-21 10:43 | CASEMGMT ---
This RN CM received VMM from Linda at Dr. Uriarte's office re: HHC set-up for patient. RN CM reviewed patient chart and notes RN POONAM, Michael Mondragon, arranged HHC set-up prior to patient's discharge from hospital 06/21/17. RN CM called Linda back and found out patient awoke with saturated dressing and reported HHC hadn't called to arrange intake. LAWANDA LEVIN let Linda know [facility] had been set-up to provide HHC, and offered to follow-up with [facility] re: SOC. RN POONAM let Linda know this RN CM would also call patient. RN POONAM called [facility] and spoke with Aleah from the [facility] office. Per Aleah, Carlos tried to call the patient this morning with no success. LAWANDA LEVIN relayed patient's concerns to Aleah. Aleah reports she will notify Carlos, torsten CM, in the [facility] office. LAWANDA LEVIN asked to speak Carlos, and Aleah said Carlos is not available at the moment. RN POONAM called patient and let her know [facility] should be calling within the next few hours to set-up the first appnt. RN CM instructed patient to call this CM if she had not received a call by 2pm today, 06/21/17. Patient verbalizes understanding, and states I'll call you back if they don't call me by 2pm.
--- NOTE | 2017-07-04 11:57 | CASEMGMT ---
[facility] fax received [facility] requesting resend of script for this pt's wound supplies. Fax returned letting them know (both times) that we do not have script, but they can contact Dr. Uriarte for new script to be sent to them. Julio BECKETTN RN ACM
== END 2017-06-20 13:51 | disposition home health service (06) | DRG 263 ==
PROVIDERS: Internal Medicine; Obstetrics & Gynecology; Surgery; Admitting Provider Obstetrics & Gynecology; Family Provider Internal Medicine; PCP Internal Medicine; Visit Provider Internal Medicine
PROC: 0JB80ZZ Excision of Abdomen Subcutaneous Tissue and Fascia, Open Approach (ICD-10-PCS; 2017-06-16 07:15)
DX: L02.211 Cutaneous abscess of abdominal wall (principal); E11.65 Type 2 diabetes mellitus with hyperglycemia; N76.4 Abscess of vulva; B95.62 Methicillin resistant Staphylococcus aureus infection as the cause of diseases classified elsewhere; E66.01 Morbid (severe) obesity due to excess calories; L02.214 Cutaneous abscess of groin; E78.5 Hyperlipidemia, unspecified; L02.215 Cutaneous abscess of perineum; M79.3 Panniculitis, unspecified; F17.210 Nicotine dependence, cigarettes, uncomplicated; Z68.41 Body mass index [BMI] 40.0-44.9, adult; K59.00 Constipation, unspecified; I25.119 Atherosclerotic heart disease of native coronary artery with unspecified angina pectoris; G43.909 Migraine, unspecified, not intractable, without status migrainosus; B96.89 Other specified bacterial agents as the cause of diseases classified elsewhere; B95.7 Other staphylococcus as the cause of diseases classified elsewhere; Z95.5 Presence of coronary angioplasty implant and graft; Z79.82 Long term (current) use of aspirin; Z79.899 Other long term (current) drug therapy; I10 Essential (primary) hypertension; I25.2 Old myocardial infarction; Z79.4 Long term (current) use of insulin
CPT/HCPCS: 36415; 36569; 74176; 80048; 80053; 80202; 81001; 82962; 83036; 84134; 85025; 85027; 85610; 85652; 86140; 87040; 87070; 87075; 87077; 87086; 87088; 87102; 87106; 87186; 87205; 87206; 87640; 88304; 88305; 88312; 93005; 97802; J7030; J7040; A4216; J2405

== ENCOUNTER 2017-07-05 13:00 | Emergency (ER) | payer MEDICAID, SELFPAY ==
[2016-05-21 16:15] VITALS: BMI 41.6
[2017-07-05 13:01] VITALS: BP 156/91; PULSE 77; RESP 18; TEMP 36.6; O2SAT 99; BMI 40.8
[2017-07-05 13:50] LABS: Mucous, Urine 0 SEEN /hpf (<or=2+)
[2017-07-05 13:53] LABS: Color, Urine Yellow (Yellow); Glucose, Dipstick 250 mg/dl (Normal); Ketone-Dipstick Negative (Negative); Leukocyte Esterase-Dipstick 500 /ul (Negative); Nitrite-Dipstick Positive (Negative); Occult Blood-Urine 250 /ul (Negative); Protein-Dipstick 100 mg/dl (Negative); Specific Gravity, Urine 1.025 (1.002-1.030); Urine Bilirubin Dipstick Negative (Negative); Urine Clarity Sl. Cloudy (Clear); Urine Urobilinogen Normal (Normal)
[2017-07-05 14:01] LABS: Bacteria 1+ /hpf (None Seen); Red Blood Cells-Urine 25-50 SEEN /hpf (0-5); Squamous Epithelial Cells - UA 0-5 SEEN /hpf (5-10); White Blood Cells 25-50 SEEN /hpf (0-5); Yeast-Urine 1+ /hpf (None Seen)
--- NOTE | 2017-07-05 14:27 | ED.DCSUM_ITS ---
- ER Visit Summary Date of Service: 07/05/17 Chief Complaint: Sent to ER by visiting nurse because of wound infection and sediment in Nicholson catheter History of Present Illness: The patient is a 42 F who had necrotizing soft tissue infection that was treated by Dr. Ana Hayes and Dr. Uriarte. Infectious disease was consulted. She now presents because of green specks in the wound. She was told she cannot take a shower and she has not showered or bathed in 3 weeks. She inquired he defers an odor. She thought the odor represented an infection. She denies any ocular, visual auditory symptoms. She denies fever, chills or night sweats. She denies any cardiac or respiratory symptoms. She denies any GI symptoms. She has no urologic symptoms other than the Nicholson causing irritation. Physical Examination: Patient is an obese woman with a BMI of 40.9. Vital signs are remarkable for an elevated blood pressure 156/91. She is afebrile and heart rate and respiratory rate are normal. Head is atraumatic normocephalic. Pupils are equal round reactive. Extraocular muscles are intact. TMs are pearly white with landmarks noted. Nares patent with no drainage. Posterior pharynx without erythema or exudate. Uvula is midline. There is no dysphonia or dysphasia. Trachea is midline. There is no stridor with auscultation of the neck. Heart is regular without murmur, gallop or rub. S1 and S2 are normal. Lungs are clear to auscultation with good movement of air bilaterally. Lateral the left labia is a large area of debridement. There is minimal granulation tissue noted. There is no erythema, warmth induration fluctuance or crepitus. There is no inguinal lymphadenopathy. Patient does have an indwelling Nicholson with significant sediment. Neuro exam is nonfocal. Test Results: Urine is consistent with infection. She has leukoesterase and blood 500 250 respectively positive nitrites. Microscopic reveals 25-50 WBCs and RBCs with 1+ bacteria. Culture was sent. Emergency Department Course and Treatment: Since wound was cleansed and dressed by nursing staff. Because she has a yeast infection she received Diflucan. She received her first dose of ciprofloxacin. The Nicholson was changed. Dr. Uriarte was paged per patient's request. She informed me that the visiting nurse told her that he is director of operations support and would want to see wound . Treatment Plan: Dressing change, ciprofloxacin for UTI and Diflucan for yeast infection Disposition: Charge to home to follow-up with Dr. Uriarte and Dr. Hayes Impression: 1. Urinary tract infection 2. Kae infection 3. Wound evaluation 4. History of diabetes This note was generated with [employer] dictation software. It may contain incorrect words, spelling, and punctuation that were not noted in review of the chart prior to signing ED Disposition - Plan for ED Patient: Disposition: Home or Assisted Living Chief Complaint: Wound Check Instructions: ED Wound Check Post Op No Infec, ED UTI Cystitis Female, ED Vaginal Infec Fungal Kae Prescriptions: Fluconazole [Diflucan] 150 mg PO DAILY #6 tab Ciprofloxacin [Cipro] 500 mg PO BID #14 tab Referrals: Rupa Johnson MD [Primary Care Provider] - Brian Uriarte MD [STAFF PHYSICIAN] - 3-5 Days Additional Instructions: Your prescriptions were electronically transmitted to [facility]
[2017-07-05] MEDS: Fluconazole 100 MG Tablet 200 MG PO (14:30)
[2017-07-05] MEDS: Ciprofloxacin 500 MG Tablet PO (14:30)
== END 2017-07-05 14:42 | disposition home or self-care (01) ==
PROVIDERS: Emergency Provider Emergency Medicine; Family Provider Internal Medicine; PCP Internal Medicine
DX: N39.0 Urinary tract infection, site not specified (principal); B37.9 Candidiasis, unspecified; E11.9 Type 2 diabetes mellitus without complications; E66.9 Obesity, unspecified; Z68.41 Body mass index [BMI] 40.0-44.9, adult; I10 Essential (primary) hypertension; E78.00 Pure hypercholesterolemia, unspecified; I25.2 Old myocardial infarction; Z86.14 Personal history of Methicillin resistant Staphylococcus aureus infection
CPT/HCPCS: 51702; 81001; 87086; 87088; 87186; 99284

== ENCOUNTER 2017-07-25 09:00 | Outpatient (RCR) | payer MEDICAID, SELFPAY ==
[2016-05-21 16:15] VITALS: BMI 41.6
[2017-07-11 10:03] VITALS: BP 135/78; PULSE 77; RESP 20; TEMP 36.7
--- NOTE | 2017-07-11 18:58 | PCM.WC.PN ---
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 History of Wound: Surgery 06/16/17 - Surgical preparation right lower anterior abdominal wall with excisional debridement skin, subcutaneous tissue, and fascia for necrotizing MRSA diabetic abscess soft tissue infection and abdominal panniculectomy (290 cm2) and debridement of left groin and vulvar abscess. Wound care - VAC for the abdominal wall wound and Silver dressings for the left groin wound. Operative culture - MRSA in abdominal wall wound and MRSE and Anaerobes in the left groin wound. She was discharged on Doxycycline and Augmentin and is finishing them. Operative culture also showed Kae albicans and will be started on Diflucan. She was just in the ED on 07/05/17 and a UTI was diagnosed with E. coli and she was placed on Ciprofloxacin. Prealbumin on 06/15/17 was 12.0. She takes nutritional supplementation with protein to help the healing process. Her HgbA1c was very elevated at 12.9. She will followup with her PCP to aggressively reduce that number. Today she denies fever. Her appetite is good. Progress of Wound: Improved. - Physical Exam Vital Signs Temp Pulse Resp BP 98.0 F 77 20 H 135/78 H 07/11/17 10:03 07/11/17 10:03 07/11/17 10:03 07/11/17 10:03 Debridement Note Post-Debridement Measurements/Treatment WC - Nurse 2 - General Ulcer CM Notes Start: 07/11/17 09:22 Freq: Status: Active Protocol: Activity Type Activity Date Activity User E-Sign Co-Sign Detail Recorded Client Recorded Date Recorded By Document 07/11/17 11:26 [id number] 07/11/17 11:27 MAG 07/11/17 11:26 Wound Center Nurse 2 #2 Lower Abdomen -Time 11:26 -Correct Patient Yes -Correct Side, Site, Position Yes -Correct Procedure Yes -Procedure Performed Yes -Type of Procedure Debridement -Clinical Debridement Subcutaneous -Post Debridement Size (cm) - Length 2.1 -Post Debridement Size (cm) - Width 24.5 -Post Debridement Size (cm) - Depth 1.5 -Total Square Cm 51.45 -Wound/Ulcer Outcome Not Healed -Ulcer Cleansing Rinsed/ Irrigated with Saline -Foul Odor after Cleansing No -Bioengineered Tissue No -Cetacaine [place] No -Bleeding Controlled with Pressure -Treatment Response Procedure Tolerated Well #1 Left Groin -Time 11:26 -Correct Patient Yes -Correct Side, Site, Position Yes -Correct Procedure Yes -Procedure Performed Yes -Type of Procedure Debridement -Clinical Debridement Subcutaneous -Post Debridement Size (cm) - Length 13.5 -Post Debridement Size (cm) - Width 4.1 -Post Debridement Size (cm) - Depth 0.2 -Total Square Cm 55.35 -Wound/Ulcer Outcome Not Healed -Ulcer Cleansing Rinsed/ Irrigated with Saline -Foul Odor after Cleansing No -Bioengineered Tissue No -Cetacaine [place] No -Bleeding Controlled with Pressure -Treatment Response Procedure Tolerated Well Pain Scale: 0-10 Numeric Is Patient Pain Free? Yes Wound debrided: #1 Left groin. Laterality: Left Wound Grade/Stage: 2. Type of Debridement: Excisional debridement Anesthesia Used: 4% Lidocaine Solution Depth: Down to and including healthy tissue, in the subcutaneous layer Percentage of wound debrided: 100 Instrument Used: 7mm curette Tissue Removed: subcutaneous tissue. Severity: Fat Layer Exposed Amount of bleeding with debridement: Mild Bleeding Controlled with: Pressure Patient tolerated procedure well - Additional Wound Wound debrided: #2 Right lower abdominal wall. Laterality: Right Wound Grade/Stage: 3. Type of Debridement: Excisional debridement Anesthesia Used: 4% Lidocaine Solution Depth: Down to and including healthy tissue, in the subcutaneous layer Percentage of wound debrided: 100 Instrument Used: 7mm curette Tissue Removed: subcutaneous tissue. Severity: Fat Layer Exposed Amount of bleeding with debridement: Mild Bleeding Controlled with: Pressure Patient tolerated procedure: Patient tolerated procedure well Assessment/Plan Assessment: 1. 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 2. Necrotizing MRSA diabetic abscess left inguinal and perineal area. 3. Abdominal wall panniculus with panniculitis. 4. Diabetes mellitus. 5. MRSA. 6. Smoker. 7. Obesity. 8. Recent UTI. Plan: Continue the VAC to the abdominal wall. Continue Silver dressing changes daily to the left inguinal and perineal area. She is finishing the Doxycycline and Augmentin for MRSA, MRSE, and Anaerobes. Fungal culture showed Kae albicans and she was started on Diflucan. She was recently in the ED on 07/05/17 and a UTI was diagnosed with E. coli and she was treated with Ciprofloxacin. Prealbumin was 12.0 on 06/15/17. Encourage nutritional supplementation with protein to help the healing process. Renewed her Percocet for pain, one tab (30 tabs) and her Valium for spasm, twice a day (20 tabs). Followup 2 weeks.
[2017-07-25 09:21] VITALS: BP 116/68; PULSE 71; RESP 16; TEMP 36.5
--- NOTE | 2017-07-25 19:18 | PCM.WC.PN ---
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 History of Wound: Surgery 06/16/17 - Surgical preparation right lower anterior abdominal wall with excisional debridement skin, subcutaneous tissue, and fascia for necrotizing MRSA diabetic abscess soft tissue infection and abdominal panniculectomy (290 cm2) and debridement of left groin and vulvar abscess. Wound care - VAC for the abdominal wall wound and Silver dressings for the left groin wound. Operative culture - MRSA in abdominal wall wound and MRSE and Anaerobes in the left groin wound. She was discharged on Doxycycline and Augmentin and finished them. Operative culture also showed Kae albicans and she is on Diflucan. She was in the ED on 07/05/17 and a UTI was diagnosed with E. coli and she was treated with Ciprofloxacin. Prealbumin on 06/15/17 was 12.0. She takes nutritional supplementation with protein to help the healing process. Her HgbA1c was very elevated at 12.9. She will followup with her PCP to aggressively reduce that number. Today she denies fever. Her appetite is good. Progress of Wound: Improved. - Physical Exam Vital Signs Temp Pulse Resp BP 97.7 F L 71 16 116/68 07/25/17 09:21 07/25/17 09:21 07/25/17 09:21 07/25/17 09:21 Wound Measurements and Assessment WC - Nurse 1 - General Ulcer Measurement Start: 07/11/17 09:22 Freq: Status: Active Protocol: Activity Type Activity Date Activity User E-Sign Co-Sign Detail Recorded Client Recorded Date Recorded By Document 07/25/17 09:21 [facility] [id number] 07/25/17 09:39 [facility] 07/25/17 09:21 Wound Center Nurse 1 [Ulcer Assessment] #2 Lower Abdomen -Combined with other wound No -Current Size (cm) - Length 1.3 -Current Size (cm) - Width 20.1 -Current Size (cm) - Depth 0.3 -Total Square Cm 26.13 -Photo Taken No -Epithelialization Small 1-33% -Tunneling No -Undermining/Tunneling No -Exudate Amt Small (1-33%) -Exudate Type Serous -Wound Margin Distinct, Outline Attached -Granulation Amt Large (67-100%) -Granulation Quality Red -Slough/Fibrin No -Necrosis Amt None Present (0 %) -Structure Exposed None/Limited to Skin Breakdown -Texture (Amee-wound Skin Appearance) Scarring -Moisture (Amee-wound Skin Appearance Assessed ) -Color (Amee-wound Skin Appearance) Erythema -Temperature (Amee-wound Skin No Abnormality Appearance) (Pt Warm) -Tenderness on Palpation (Amee-wound No Skin Appearance) -Ulcer Cleansing Rinsed/ Irrigated with Saline -Foul Odor after Cleansing No -Anesthetic Used 4% Lidocaine Solution #1 Left Groin -Combined with other wound No -Current Size (cm) - Length 13.5 -Current Size (cm) - Width 2.1 -Current Size (cm) - Depth 0.1 -Total Square Cm 28.35 -Photo Taken No -Epithelialization Small 1-33% -Tunneling No -Undermining/Tunneling No -Exudate Amt Medium (34-66%) -Exudate Type Serous -Wound Margin Distinct, Outline Attached -Granulation Amt Medium (34-66%) -Granulation Quality [place] -Slough/Fibrin Yes -Necrosis Amt Small (1-33%) -Necrotic Tissue Type Adherent Slough -Structure Exposed None/Limited to Skin Breakdown -Texture (Amee-wound Skin Appearance) Scarring -Moisture (Amee-wound Skin Appearance Assessed ) -Color (Amee-wound Skin Appearance) Erythema -Temperature (Amee-wound Skin No Abnormality Appearance) (Pt Warm) -Tenderness on Palpation (Amee-wound No Skin Appearance) -Ulcer Cleansing Rinsed/ Irrigated with Saline -Foul Odor after Cleansing No -Anesthetic Used 4% Lidocaine Solution WC - Nurse 2 - General Ulcer CM Notes Start: 07/11/17 09:22 Freq: Status: Active Protocol: Activity Type Activity Date Activity User E-Sign Co-Sign Detail Recorded Client Recorded Date Recorded By Document 07/25/17 10:09 MAG [id number] 07/25/17 10:11 MAG 07/25/17 10:09 Wound Center Nurse 2 [Procedure/Treatment] #2 Lower Abdomen -Time 10:11 -Correct Patient Yes -Correct Side, Site, Position Yes -Correct Procedure Yes -Procedure Performed Yes -Type of Procedure Debridement -Clinical Debridement Subcutaneous -Post Debridement Size (cm) - Length 1.4 -Post Debridement Size (cm) - Width 20.2 -Post Debridement Size (cm) - Depth 0.3 -Total Square Cm 28.28 -Wound/Ulcer Outcome Not Healed -Ulcer Cleansing Rinsed/ Irrigated with Saline -Foul Odor after Cleansing No -Bioengineered Tissue No -Bleeding Controlled with Pressure -Treatment Response Procedure Tolerated Well #1 Left Groin -Time 10:11 -Correct Patient Yes -Correct Side, Site, Position Yes -Correct Procedure Yes -Procedure Performed Yes -Type of Procedure Debridement -Clinical Debridement Subcutaneous -Post Debridement Size (cm) - Length 13.5 -Post Debridement Size (cm) - Width 2.2 -Post Debridement Size (cm) - Depth 0.1 -Total Square Cm 29.70 -Wound/Ulcer Outcome Not Healed -Ulcer Cleansing Rinsed/ Irrigated with Saline -Foul Odor after Cleansing No -Bioengineered Tissue No -Bleeding Controlled with Pressure -Treatment Response Procedure Tolerated Well [See Physician Procedure note for Specifics] Pain Scale: 0-10 Numeric [Pain] -Is Patient Pain Free? Yes Debridement Note Post-Debridement Measurements/Treatment WC - Nurse 2 - General Ulcer CM Notes Start: 07/11/17 09:22 Freq: Status: Active Protocol: Activity Type Activity Date Activity User E-Sign Co-Sign Detail Recorded Client Recorded Date Recorded By Document 07/11/17 11:26 [id number] 07/11/17 11:27 Document 07/25/17 10:09 [id number] 07/25/17 10:11 07/11/17 07/25/17 11:26 10:09 Wound Center Nurse 2 #2 Lower Abdomen -Time 11:26 10:11 -Correct Patient Yes Yes -Correct Side, Site, Position Yes Yes -Correct Procedure Yes Yes -Procedure Performed Yes Yes -Type of Procedure Debridement Debridement -Clinical Debridement Subcutaneous Subcutaneous -Post Debridement Size (cm) - Length 2.1 1.4 -Post Debridement Size (cm) - Width 24.5 20.2 -Post Debridement Size (cm) - Depth 1.5 0.3 -Total Square Cm 51.45 28.28 -Wound/Ulcer Outcome Not Healed Not Healed -Ulcer Cleansing Rinsed/ Rinsed/ Irrigated with Irrigated with Saline Saline -Foul Odor after Cleansing No No -Bioengineered Tissue No No -Cetacaine [place] No -Bleeding Controlled with Pressure Pressure -Treatment Response Procedure Procedure Tolerated Well Tolerated Well #1 Left Groin -Time 11:26 10:11 -Correct Patient Yes Yes -Correct Side, Site, Position Yes Yes -Correct Procedure Yes Yes -Procedure Performed Yes Yes -Type of Procedure Debridement Debridement -Clinical Debridement Subcutaneous Subcutaneous -Post Debridement Size (cm) - Length 13.5 13.5 -Post Debridement Size (cm) - Width 4.1 2.2 -Post Debridement Size (cm) - Depth 0.2 0.1 -Total Square Cm 55.35 29.70 -Wound/Ulcer Outcome Not Healed Not Healed -Ulcer Cleansing Rinsed/ Rinsed/ Irrigated with Irrigated with Saline Saline -Foul Odor after Cleansing No No -Bioengineered Tissue No No -Cetacaine [place] No -Bleeding Controlled with Pressure Pressure -Treatment Response Procedure Procedure Tolerated Well Tolerated Well Pain Scale: 0-10 Numeric Is Patient Pain Free? Yes Yes Wound debrided: #1 Left groin. Laterality: Left Wound Grade/Stage: 2. Type of Debridement: Excisional debridement Anesthesia Used: 4% Lidocaine Solution Depth: Down to and including healthy tissue, in the subcutaneous layer Percentage of wound debrided: 100 Instrument Used: 5mm curette Tissue Removed: subcutaneous tissue. Severity: Fat Layer Exposed Amount of bleeding with debridement: Mild Bleeding Controlled with: Pressure Patient tolerated procedure well - Additional Wound Wound debrided: #2 Right lower abdominal wall. Laterality: Right Wound Grade/Stage: 3. Type of Debridement: Excisional debridement Anesthesia Used: 4% Lidocaine Solution Depth: Down to and including healthy tissue, in the subcutaneous layer Percentage of wound debrided: 100 Instrument Used: 5mm curette Tissue Removed: subcutaneous tissue. Severity: Fat Layer Exposed Amount of bleeding with debridement: Mild Bleeding Controlled with: Pressure Patient tolerated procedure: Patient tolerated procedure well Assessment/Plan Assessment: 1. 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 2. Necrotizing MRSA diabetic abscess left inguinal and perineal area. 3. Abdominal wall panniculus with panniculitis. 4. Diabetes mellitus. 5. MRSA. 6. Smoker. 7. Obesity. 8. Recent UTI. Plan: Stop the VAC to the abdominal wall. Continue Silver dressing changes daily to both the left inguinal and perineal area and abdominal wall area. She finished the Doxycycline and Augmentin for MRSA, MRSE, and Anaerobes. Fungal culture showed Kae albicans and she will continue Diflucan. She was recently in the ED on 07/05/17 and a UTI was diagnosed with E. coli and she was treated with Ciprofloxacin. Prealbumin was 12.0 on 06/15/17. Encourage nutritional supplementation with protein to help the healing process. Now that the UTI was treated, the valdivia catheter was removed today without difficulty. Followup 2 weeks.
== END 2017-08-03 23:59 ==
LOC: WC 09:00
PROVIDERS: Family Provider Internal Medicine; PCP Internal Medicine; Visit Provider Surgery
DX: E11.622 Type 2 diabetes mellitus with other skin ulcer (principal); L98.492 Non-pressure chronic ulcer of skin of other sites with fat layer exposed; Z86.14 Personal history of Methicillin resistant Staphylococcus aureus infection; F17.200 Nicotine dependence, unspecified, uncomplicated; E66.9 Obesity, unspecified; Z71.3 Dietary counseling and surveillance
CPT/HCPCS: 11042; 11045; 97605; 99213; G0463

== ENCOUNTER 2017-08-29 10:15 | Outpatient (RCR) | payer MEDICAID, SELFPAY ==
[2016-05-21 16:15] VITALS: BMI 41.6
[2017-08-04 01:02] VITALS: BP 135/78; PULSE 71; RESP 16; TEMP 36.5
[2017-08-08 10:51] VITALS: BP 128/82; PULSE 73; RESP 16; TEMP 37
--- NOTE | 2017-08-08 22:28 | PCM.WC.PN ---
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 History of Wound: Surgery 06/16/17 - Surgical preparation right lower anterior abdominal wall with excisional debridement skin, subcutaneous tissue, and fascia for necrotizing MRSA diabetic abscess soft tissue infection and abdominal panniculectomy (290 cm2) and debridement of left groin and vulvar abscess. Wound care - Silver dressings for the left groin and abdominal wall wounds. Operative culture - MRSA in abdominal wall wound and MRSE and Anaerobes in the left groin wound. She was discharged on Doxycycline and Augmentin and finished them. Operative culture also showed Kae albicans and she has finished the Diflucan. She was in the ED on 07/05/17 and a UTI was diagnosed with E. coli and she was treated with Ciprofloxacin. Prealbumin on 06/15/17 was 12.0. She takes nutritional supplementation with protein to help the healing process. Her HgbA1c was very elevated at 12.9. She will followup with her PCP to aggressively reduce that number. Today she denies fever. Her appetite is good. Progress of Wound: Improved. - Physical Exam Vital Signs Temp Pulse Resp BP 98.6 F 73 16 128/82 H 08/08/17 10:51 08/08/17 10:51 08/08/17 10:51 08/08/17 10:51 Wound Measurements and Assessment WC - Nurse 1 - General Ulcer Measurement Start: 08/08/17 10:51 Freq: Status: Active Protocol: Activity Type Activity Date Activity User E-Sign Co-Sign Detail Recorded Client Recorded Date Recorded By Document 08/08/17 10:51 [facility] [id number] 08/08/17 11:09 [facility] 08/08/17 10:51 Wound Center Nurse 1 [Ulcer Assessment] #2 Lower Abdomen -Combined with other wound No -Current Size (cm) - Length 1.1 -Current Size (cm) - Width 7.1 -Current Size (cm) - Depth 0.1 -Total Square Cm 7.81 -Date of Last Picture (Recall this 08/08/17 field) -Photo Taken Yes -Epithelialization None Present -Tunneling No -Undermining/Tunneling No -Circular Undermining No -Classification - Thickness Full Thickness without Exposed Support Structure -Exudate Amt Small (1-33%) -Exudate Type Serosanguineous -Wound Margin Distinct, Outline Attached -Granulation Amt Large (67-100%) -Granulation Quality [place] -Slough/Fibrin Yes -Necrosis Amt Small (1-33%) -Necrotic Tissue Type Adherent Slough -Structure Exposed Fascia Fat Layer Exposed -Texture (Amee-wound Skin Appearance) Scarring -Moisture (Amee-wound Skin Appearance No Abnormality ) -Color (Amee-wound Skin Appearance) Erythema -Temperature (Amee-wound Skin No Abnormality Appearance) (Pt Warm) -Tenderness on Palpation (Amee-wound No Skin Appearance) -Ulcer Cleansing flory hex -Foul Odor after Cleansing No -Anesthetic Used 4% Lidocaine Solution #1 Left Groin -Combined with other wound No -Current Size (cm) - Length 3.2 -Current Size (cm) - Width 1.0 -Current Size (cm) - Depth 0.1 -Total Square Cm 3.20 -Date of Last Picture (Recall this 08/08/17 field) -Photo Taken Yes -Epithelialization None Present -Tunneling No -Undermining/Tunneling No -Circular Undermining No -Classification - Thickness Full Thickness without Exposed Support Structure -Exudate Amt Small (1-33%) -Exudate Type Serosanguineous -Wound Margin Distinct, Outline Attached -Granulation Amt Large (67-100%) -Granulation Quality Red -Slough/Fibrin Yes -Necrosis Amt Small (1-33%) -Necrotic Tissue Type Adherent Slough -Structure Exposed Fascia Fat Layer Exposed -Texture (Amee-wound Skin Appearance) Scarring -Moisture (Amee-wound Skin Appearance No Abnormality ) -Color (Amee-wound Skin Appearance) Erythema -Temperature (Amee-wound Skin No Abnormality Appearance) (Pt Warm) -Tenderness on Palpation (Amee-wound No Skin Appearance) -Ulcer Cleansing Rinsed/ Irrigated with Saline -Foul Odor after Cleansing No -Anesthetic Used 4% Lidocaine Solution [Edema Assessment] -Lower Limb Edema Present No WC - Nurse 2 - General Ulcer CM Notes Start: 08/08/17 10:51 Freq: Status: Active Protocol: Activity Type Activity Date Activity User E-Sign Co-Sign Detail Recorded Client Recorded Date Recorded By Document 08/08/17 11:40 MAG [id number] 08/08/17 11:41 MAG 08/08/17 11:40 Wound Center Nurse 2 [Procedure/Treatment] #2 Lower Abdomen -Time 11:40 -Correct Patient Yes -Correct Side, Site, Position Yes -Correct Procedure Yes -Procedure Performed Yes -Type of Procedure Debridement -Clinical Debridement Subcutaneous -Post Debridement Size (cm) - Length 1.2 -Post Debridement Size (cm) - Width 7.2 -Post Debridement Size (cm) - Depth 0.1 -Total Square Cm 8.64 -Wound/Ulcer Outcome Not Healed -Ulcer Cleansing Rinsed/ Irrigated with Saline -Foul Odor after Cleansing No -Bioengineered Tissue No -Bleeding Controlled with Pressure -Treatment Response Procedure Tolerated Well #1 Left Groin -Time 11:40 -Correct Patient Yes -Correct Side, Site, Position Yes -Correct Procedure Yes -Procedure Performed Yes -Type of Procedure Debridement -Clinical Debridement Subcutaneous -Post Debridement Size (cm) - Length 3.2 -Post Debridement Size (cm) - Width 1.1 -Post Debridement Size (cm) - Depth 0.1 -Total Square Cm 3.52 -Wound/Ulcer Outcome Not Healed -Ulcer Cleansing Rinsed/ Irrigated with Saline -Foul Odor after Cleansing No -Bioengineered Tissue No -Bleeding Controlled with Pressure -Treatment Response Procedure Tolerated Well [See Physician Procedure note for Specifics] Pain Scale: 0-10 Numeric [Pain] -Is Patient Pain Free? Yes Debridement Note Post-Debridement Measurements/Treatment WC - Nurse 2 - General Ulcer CM Notes Start: 08/08/17 10:51 Freq: Status: Active Protocol: Activity Type Activity Date Activity User E-Sign Co-Sign Detail Recorded Client Recorded Date Recorded By Document 08/08/17 11:40 MAG [id number] 08/08/17 11:41 MAG 08/08/17 11:40 Wound Center Nurse 2 #2 Lower Abdomen -Time 11:40 -Correct Patient Yes -Correct Side, Site, Position Yes -Correct Procedure Yes -Procedure Performed Yes -Type of Procedure Debridement -Clinical Debridement Subcutaneous -Post Debridement Size (cm) - Length 1.2 -Post Debridement Size (cm) - Width 7.2 -Post Debridement Size (cm) - Depth 0.1 -Total Square Cm 8.64 -Wound/Ulcer Outcome Not Healed -Ulcer Cleansing Rinsed/ Irrigated with Saline -Foul Odor after Cleansing No -Bioengineered Tissue No -Bleeding Controlled with Pressure -Treatment Response Procedure Tolerated Well #1 Left Groin -Time 11:40 -Correct Patient Yes -Correct Side, Site, Position Yes -Correct Procedure Yes -Procedure Performed Yes -Type of Procedure Debridement -Clinical Debridement Subcutaneous -Post Debridement Size (cm) - Length 3.2 -Post Debridement Size (cm) - Width 1.1 -Post Debridement Size (cm) - Depth 0.1 -Total Square Cm 3.52 -Wound/Ulcer Outcome Not Healed -Ulcer Cleansing Rinsed/ Irrigated with Saline -Foul Odor after Cleansing No -Bioengineered Tissue No -Bleeding Controlled with Pressure -Treatment Response Procedure Tolerated Well Pain Scale: 0-10 Numeric Is Patient Pain Free? Yes Wound debrided: #1 Left groin. Laterality: Left Wound Grade/Stage: 2. Type of Debridement: Excisional debridement Anesthesia Used: 4% Lidocaine Solution Depth: Down to and including healthy tissue, in the subcutaneous layer Percentage of wound debrided: 100 Instrument Used: 3mm curette Tissue Removed: subcutaneous tissue. Severity: Fat Layer Exposed Amount of bleeding with debridement: Mild Bleeding Controlled with: Pressure Patient tolerated procedure well - Additional Wound Wound debrided: #2 Right lower abdominal wall. Laterality: Right Wound Grade/Stage: 3. Type of Debridement: Excisional debridement Anesthesia Used: 4% Lidocaine Solution Depth: Down to and including healthy tissue, in the subcutaneous layer Percentage of wound debrided: 100 Instrument Used: 5mm curette Tissue Removed: subcutaneous tissue. Severity: Fat Layer Exposed Amount of bleeding with debridement: Mild Bleeding Controlled with: Pressure Patient tolerated procedure: Patient tolerated procedure well Assessment/Plan Assessment: 1. 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 2. Necrotizing MRSA diabetic abscess left inguinal and perineal area. 3. Abdominal wall panniculus with panniculitis. 4. Diabetes mellitus. 5. MRSA. 6. Smoker. 7. Obesity. Plan: Continue Silver dressing changes daily to both the left inguinal and perineal area and abdominal wall area. She finished the Doxycycline and Augmentin for MRSA, MRSE, and Anaerobes. Fungal culture showed Kae albicans and she finished the Diflucan. She was recently in the ED on 07/05/17 and a UTI was diagnosed with E. coli and she was treated with Ciprofloxacin. Prealbumin was 12.0 on 06/15/17. Encourage nutritional supplementation with protein to help the healing process. Followup 2 weeks. Patient is anxious to return to work. I told her she can return to work after the wounds have healed since she had MRSA.
[2017-08-29 10:27] VITALS: BP 151/88; PULSE 85; RESP 18; TEMP 36.7
--- NOTE | 2017-08-29 20:18 | PCM.WC.PN ---
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 History of Wound: Surgery 06/16/17 - Surgical preparation right lower anterior abdominal wall with excisional debridement skin, subcutaneous tissue, and fascia for necrotizing MRSA diabetic abscess soft tissue infection and abdominal panniculectomy (290 cm2) and debridement of left groin and vulvar abscess. Wound care - Silver dressings for the left groin and abdominal wall wounds. Operative culture - MRSA in abdominal wall wound and MRSE and Anaerobes in the left groin wound. She was discharged on Doxycycline and Augmentin and finished them. Operative culture also showed Kae albicans and she has finished the Diflucan. She was in the ED on 07/05/17 and a UTI was diagnosed with E. coli and she was treated with Ciprofloxacin. Prealbumin on 06/15/17 was 12.0. She takes nutritional supplementation with protein to help the healing process. Her HgbA1c was very elevated at 12.9. She will followup with her PCP to aggressively reduce that number. Today she denies fever. Her appetite is good. Progress of Wound: Improved. - Physical Exam Vital Signs Temp Pulse Resp BP 98.0 F 85 18 151/88 H 08/29/17 10:27 08/29/17 10:27 08/29/17 10:27 08/29/17 10:27 Debridement Note Post-Debridement Measurements/Treatment WC - Nurse 2 - General Ulcer CM Notes Start: 08/08/17 10:51 Freq: Status: Active Protocol: Activity Type Activity Date Activity User E-Sign Co-Sign Detail Recorded Client Recorded Date Recorded By Document 08/08/17 11:40 [id number] 08/08/17 11:41 Document 08/29/17 11:04 [id number] 08/29/17 11:05 08/08/17 08/29/17 11:40 11:04 Wound Center Nurse 2 #2 Lower Abdomen -Time 11:40 11:04 -Correct Patient Yes Yes -Correct Side, Site, Position Yes Yes -Correct Procedure Yes Yes -Procedure Performed Yes Yes -Type of Procedure Debridement Debridement -Clinical Debridement Subcutaneous Subcutaneous -Post Debridement Size (cm) - Length 1.2 0.4 -Post Debridement Size (cm) - Width 7.2 4.1 -Post Debridement Size (cm) - Depth 0.1 0.1 -Total Square Cm 8.64 1.64 -Wound/Ulcer Outcome Not Healed Not Healed -Ulcer Cleansing Rinsed/ Rinsed/ Irrigated with Irrigated with Saline Saline -Foul Odor after Cleansing No No -Bioengineered Tissue No No -Bleeding Controlled with Pressure Pressure -Treatment Response Procedure Procedure Tolerated Well Tolerated Well #1 Left Groin -Time 11:40 11:05 -Correct Patient Yes Yes -Correct Side, Site, Position Yes Yes -Correct Procedure Yes Yes -Procedure Performed Yes Yes -Type of Procedure Debridement Debridement -Clinical Debridement Subcutaneous Subcutaneous -Post Debridement Size (cm) - Length 3.2 3.5 -Post Debridement Size (cm) - Width 1.1 0.5 -Post Debridement Size (cm) - Depth 0.1 0.1 -Total Square Cm 3.52 1.75 -Wound/Ulcer Outcome Not Healed Not Healed -Ulcer Cleansing Rinsed/ Rinsed/ Irrigated with Irrigated with Saline Saline -Foul Odor after Cleansing No No -Bioengineered Tissue No No -Bleeding Controlled with Pressure Pressure -Treatment Response Procedure Procedure Tolerated Well Tolerated Well Pain Scale: 0-10 Numeric Is Patient Pain Free? Yes Yes Wound debrided: #1 Left groin. Laterality: Left Wound Grade/Stage: 2. Type of Debridement: Excisional debridement Anesthesia Used: 4% Lidocaine Solution Depth: Down to and including healthy tissue, in the subcutaneous layer Percentage of wound debrided: 100 Instrument Used: 3mm curette Tissue Removed: subcutaneous tissue. Severity: Fat Layer Exposed Amount of bleeding with debridement: Mild Bleeding Controlled with: Pressure Patient tolerated procedure well - Additional Wound Wound debrided: #2 Right lower abdominal wall. Laterality: Right Wound Grade/Stage: 3. Type of Debridement: Excisional debridement Anesthesia Used: 4% Lidocaine Solution Depth: Down to and including healthy tissue, in the subcutaneous layer Percentage of wound debrided: 100 Instrument Used: 5mm curette Tissue Removed: subcutaneous tissue. Severity: Fat Layer Exposed Amount of bleeding with debridement: Mild Bleeding Controlled with: Pressure Patient tolerated procedure: Patient tolerated procedure well Assessment/Plan Assessment: 1. 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 2. Necrotizing MRSA diabetic abscess left inguinal and perineal area. 3. Abdominal wall panniculus with panniculitis. 4. Diabetes mellitus. 5. MRSA. 6. Smoker. 7. Obesity. 8. Recent UTI. Plan: Continue Silver dressing changes daily to both the left inguinal and perineal area and abdominal wall area. She finished the Doxycycline and Augmentin for MRSA, MRSE, and Anaerobes. Fungal culture showed Kae albicans and she finished the Diflucan. She was recently in the ED on 07/05/17 and a UTI was diagnosed with E. coli and she was treated with Ciprofloxacin. Prealbumin was 12.0 on 06/15/17. Encourage nutritional supplementation with protein to help the healing process. Followup 3 weeks. Patient is anxious to return to work. Her wounds are almost healed and are stable. She states her boss is ok with her returning with the wounds not totally closed. As long as she has the wounds covered, she should be okay. She is aware that if the wounds were to worsen or there is increasing drainage, then she needs to stop working and would further evaluate why the wounds are worsening [facility]. She voices understanding and will keep the wounds covered during work.
== END 2017-09-03 23:59 ==
LOC: WC 10:15
PROVIDERS: Family Provider Internal Medicine; PCP Internal Medicine; Visit Provider Surgery
DX: E11.622 Type 2 diabetes mellitus with other skin ulcer (principal); L98.492 Non-pressure chronic ulcer of skin of other sites with fat layer exposed; Z86.14 Personal history of Methicillin resistant Staphylococcus aureus infection; F17.200 Nicotine dependence, unspecified, uncomplicated; E66.9 Obesity, unspecified; Z87.440 Personal history of urinary (tract) infections
CPT/HCPCS: 11042

== ENCOUNTER 2017-09-19 08:50 | Outpatient (RCR) | payer MEDICAID, SELFPAY ==
[2016-05-21 16:15] VITALS: BMI 41.6
[2017-09-04 00:52] VITALS: BP 135/78; PULSE 85; RESP 18; TEMP 36.7
== END 2017-10-03 23:59 ==
LOC: WC 08:50
PROVIDERS: Family Provider Internal Medicine; PCP Internal Medicine; Visit Provider Surgery
DX: Z09 Encounter for follow-up examination after completed treatment for conditions other than malignant neoplasm (principal)

== ENCOUNTER 2021-01-29 13:48 | Emergency (ER) | payer MEDICAID, SELFPAY ==
[2016-05-21 16:15] VITALS: BMI 41.6
[2021-01-29 13:49] VITALS: BP 134/88; PULSE 102; RESP 18; TEMP 35.8; O2SAT 96; BMI 40.2
--- NOTE | 2021-01-29 13:59 | ED.RN ---
[facility] CALLED TO OBTAIN URINE DRUG SCREEN
--- NOTE | 2021-01-29 14:42 | ED.RN ---
PT LWBS AT [id number]
== END 2021-01-29 14:39 ==
LOC: ED 15:19
PROVIDERS: PCP Internal Medicine
DX: T14.90XA Injury, unspecified, initial encounter (principal)

== ENCOUNTER 2023-12-06 13:00 | Emergency (ER) | payer MEDICAID, SELFPAY ==
[2016-05-21 16:15] VITALS: BMI 41.6
[2023-12-06 13:00] VITALS: BP 154/93; PULSE 100; RESP 16; TEMP 36.8; O2SAT 98
--- NOTE | 2023-12-06 14:26 | ED.RN ---
PT LOUDLY TALKING ON PHONE IN TRIAGE ROOM, COMPLAINING ABOUT NOT HAVING MONEY. ANOTHER PT AND HER SPOUSE GAVE THIS PT MONEY. PT ALSO COMPLAINING ABOUT THE WAIT, PT THINKS D/T HER AND HER DAUGHTER COMING BY EMS THAT THEY SHOULD NOT HAVE TO WAIT.
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
--- NOTE | 2023-12-06 14:59 | ED.RN ---
pt on phone we havent even been seen yet, we're not in a room.
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
[2023-12-06 17:00] VITALS: BP 155/83; PULSE 81; RESP 18; O2SAT 99
== END 2023-12-06 18:00 | disposition home or self-care (01) ==
PROVIDERS: Emergency Provider Emergency Medicine; PCP Internal Medicine; Visit Provider Emergency Medicine
DX: S09.90XA Unspecified injury of head, initial encounter (principal); V89.2XXA Person injured in unspecified motor-vehicle accident, traffic, initial encounter; S16.1XXA Strain of muscle, fascia and tendon at neck level, initial encounter
CPT/HCPCS: 70450; 72125; 99282